=== PATIENT | female | born 1950 | race Caucasian/White ===

== ENCOUNTER → 2018-06-19 11:56 | Outpatient (CLI) | payer MEDICARE, BC, OTHER, SELFPAY ==
--- NOTE | 2018-06-19 | DI.RAD.S_ITS ---
PROCEDURE: XR CHEST 2V INDICATIONS: WHEEZING TECHNIQUE: 2 views of the chest were acquired. COMPARISON: [facility], CHEST 1 VIEW, 03/28/2015, 9:35. [facility], CHEST 1 VIEW, 05/11/2009, 16:20. FINDINGS: Surgical changes and devices: None. Lungs and pleura: Lungs are clear but the lung volumes are large and the appearance is suggestive of underlying COPD. No pleural effusions or pneumothorax. Mediastinum: Mediastinal contours are normal. Heart size is normal. Bones and chest wall: No suspicious bony abnormalities. Soft tissues appear unremarkable. IMPRESSION: Suspect COPD, large lung volumes, no pneumonia or neoplasm is currently found. Dictated by: Rasta Lawrence M.D. on 06/19/2018 at 13:02 Approved by: Rasta Lawrence M.D. on 06/19/2018 at 13:03
== END ==
PROVIDERS: PCP Family Medicine; Visit Provider Family Medicine
DX: R06.2 Wheezing (principal)
CPT/HCPCS: 71046

== ENCOUNTER → 2018-11-06 14:48 | Outpatient (CLI) | payer MEDICARE, BC, OTHER, SELFPAY ==
--- NOTE | 2018-11-10 16:37 | PM.PFT.1 ---
Pulmonary Function Test Referral & Results Date Patient Seen: 11/06/18 Requesting provider: Elizabeth Cartagena Results: The spirometry demonstrates an FVC of 2.52 L which is 91% of predicted. The FEV1 was measured at 1.31 L which is 62% of predicted. The FEV1/FVC ratio was 52 which is 67% of predicted. Following the administration of bronchodilator there was a 16 % improvement in FEV1 and a 60% improvement in FEF 25-75%. Lung volumes show an SVC of 2.37 L which is 90% of predicted. The diffusing capacity was measured at 12.57 which is 62% of predicted. The maximum voluntary ventilation was reduced Interpretation: This study demonstrates mild to moderate obstructive lung disease based on reduction FEV1. There is some evidence of benefit following bronchodilator based on 16 % improvement in FEV1 and 60% improvement in FEF 25-75% There is also mild reduction in diffusing capacity suggesting an element of disease at the capillary alveolar level
== END ==
PROVIDERS: PCP Family Medicine; Visit Provider Family Medicine
DX: R06.2 Wheezing (principal)
CPT/HCPCS: 94060; 94726; 94729

== ENCOUNTER → 2018-11-17 07:32 | Outpatient (CLI) | payer MEDICARE, BC, OTHER, SELFPAY ==
--- NOTE | 2018-11-17 | DI.MRI.S_ITS ---
PROCEDURE: MR LUMBAR SPINE WO CON INDICATIONS: LUMBAR RADICULOPATHY TECHNIQUE: Noncontrast sagittal T1 spin echo and T2 fast echo, sagittal STIR, axial T1 and T2 fast spin echo through the lumbar spine. In cases with scoliosis, additional coronal T2 fast spin echo may be performed. COMPARISON: [facility], MR, L-SPINE WITHOUT CONTRAST, 03/23/2007, 9:49. FINDINGS: Image quality: Excellent. Alignment and Curvature: There is grade 1 anterolisthesis of L4 on L5 and trace retrolisthesis of L2 on L3, L5 on S1 and trace anterolisthesis of L3 on L4. These are of slightly more prominent when compared to prior exam. Bone Marrow: Marrow is of normal overall signal. Moderate endplate changes are present at L5-S1. No acute vertebral body compression fractures. Spinal Cord: Conus medullaris terminates at the L1-L2 level. Visualized cord demonstrates normal signal and size. Paraspinous Soft Tissues: No paravertebral masses. Discs: Severe desiccation is present over 5 and L5-S1, moderate remainder of the lumbar spine. L1-L2: Minimal disc bulge without spinal stenosis. Mild left foraminal narrowing with facet and ligamentum flavum hypertrophy. Interval progression is noted. L2-L3: Mild disc flows with minimal spinal stenosis. Mild to moderate bilateral foraminal narrowing with facet and ligamentum flavum hypertrophy. Interval compression is noted.. L3-L4: Mild disc bulge with severe spinal stenosis and mild canal compression. There is severe right and mild left foraminal narrowing with facet and ligamentum flavum hypertrophy. Interval progression is noted. L4-L5: Mild disc bulge with moderate to severe spinal stenosis. There is severe right and mild left foraminal narrowing with flattening of the nerve root on the right. Facet and ligamentum flavum hypertrophy are present. Interval progression is noted. L5-S1: Mild asymmetric disc bulge with left foraminal component and slight compromise of the left lateral recess.. Severe left and moderate right foraminal narrowing with very minimal appearance of nerve root flattening on the left. Facet hypertrophy is present. Interval progression is noted. IMPRESSION: 1. Multilevel degenerative changes with interval progression compared to 2007. 2. Spinal stenosis is most prominent at L3-4 and L4-5 secondary to disc bulge with contributing effect of facet/ligamentum flavum arthropathy. 3. Multilevel foraminal narrowing most severe at L3-4 through L5-S1 secondary to injury/retrolisthesis as well as facet arthropathy. Dictated by: Monie Baez M.D. on 11/17/2018 at 9:23 Approved by: Monie Baez M.D. on 11/17/2018 at 9:54
--- NOTE | 2018-11-17 | DI.MG.S_ITS ---
BILATERAL DIGITAL SCREENING MAMMOGRAM 3D/2D WITH CAD: 11/17/2018 CLINICAL: Routine screening. Family history of breast cancer. Comparison is made to exams dated: 08/10/2016 mammogram - [facility], 02/10/2015 mammogram, and 01/28/2014 mammogram - [facility]. The tissue of both breasts is heterogeneously dense. This may lower the sensitivity of mammography. Current study was also evaluated with a Computer Aided Detection (CAD) system. No significant masses, calcifications, or other findings are seen in either breast. There has been no significant interval change. IMPRESSION: NEGATIVE There is no mammographic evidence of malignancy. A 1 year screening mammogram is recommended. This exam was interpreted at Station ID: [id number]. NOTE: For mammograms, a report in lay terms will be sent to the patient. Approximately 15% of breast malignancies will not be visualized mammographically. In the management of a palpable breast mass, a negative mammogram must not discourage biopsy of a clinically suspicious lesion. Electronically Signed By: Shay smith/keegan:11/17/2018 13:25:43 letter sent: Normal Exam ACR BI-RADS Category 1: Negative [id number]
== END ==
PROVIDERS: PCP Family Medicine; Visit Provider Family Medicine
DX: Z12.31 Encounter for screening mammogram for malignant neoplasm of breast (principal); Z80.3 Family history of malignant neoplasm of breast; M47.26 Other spondylosis with radiculopathy, lumbar region; M47.27 Other spondylosis with radiculopathy, lumbosacral region; M51.16 Intervertebral disc disorders with radiculopathy, lumbar region; M51.17 Intervertebral disc disorders with radiculopathy, lumbosacral region; M48.061 Spinal stenosis, lumbar region without neurogenic claudication; M48.07 Spinal stenosis, lumbosacral region
CPT/HCPCS: 72148; 77063; 77067

== ENCOUNTER 2019-03-15 13:04 | Outpatient (CLI) | payer MEDICARE, BC, OTHER, SELFPAY ==
[2019-03-15] VITALS (9 sets, daily range): BP systolic 106–145; BP diastolic 47–95; PULSE 66–76; RESP 16; TEMP 36.7; O2SAT 97–99
--- NOTE | 2019-03-15 13:08 | DI.RAD.S_ITS ---
PROCEDURE: PAIN L/S TRANSFORAMINAL INJECT INDICATIONS: RADICULOPATHY FINDINGS: Fluoroscopic spot filming was performed to verify placement of spinal needles at the L3-L4 level(s), as labeled on the films. Appropriate location(s) of the needle tip(s) was confirmed by injection of iodinated contrast. Dictated by: Todd Adler M.D. on 03/15/2019 at 15:36 Approved by: Todd Adler M.D. on 03/15/2019 at 15:36
[2019-03-15] MEDS: MIDAZOLAM 5 MG/5 ML VIAL IV (14:00)
[2019-03-15] MEDS: fentaNYL 100 MCG/2 ML INJ 50 MCG IV (14:00)
[2019-03-15] MEDS: IOPAMIDOL 15 ML VIAL 3 ML INJ (14:06)
[2019-03-15] MEDS: BETAMETHASONE 30 MG/5 ML MDV 6 MG INJ (14:06)
[2019-03-15] MEDS: DEXAMETHASONE 10 MG/ML VIAL 20 MG INJ (14:09)
--- NOTE | 2019-03-15 14:16 | P.PCN_ITS ---
Procedures Date/Time Date of procedure: 03/15/19 Time of procedure: 14:16 General Procedure description: PROVIDER: Paolo Donaldson DO Operative Note PREOP DIAGNOSIS 1. FORAMINAL STENOSIS WITH LE SYMPTOMS, POST OP DIAGNOSIS 1. FORAMINAL STENOSIS WITH LE SYMPTOMS, PROCEDURES 1. FLUOROSCOPICALLY GUIDED CONTRAST CONTROLLED TRANSFORAMINAL EPIDURAL STEROID INJECTION - RIGHT L3/4 TFESI SURGEON: Paolo Donaldson DO INDICATIONS Leida is referred by Dr. Cartagena for treatment of Foraminal Stenosis with right LE Symptoms FINDINGS Foraminal Nerve Root Compression secondary to disc disease and facet hypertrophy DESCRIPTION OF PROCEDURE Following review of allergy and review of potential side effects and complications, including, but not necessarily limited to, infection, allergic reaction, local tissue breakdown, stroke, temporary or permanent nerve injury, paralysis, and possible , the patient indicated that the patient understood and agreed to proceed. An informed consent document was signed by the patient, witnessed by a nurse, and placed in the patient's chart. Additionally, other treatment options including medications, modalities, and physical therapy were reviewed with the patient. After review of previous anaesthesic history and IV conscious sedation the patient was deemed safe to proceed with todays procedure with IV conscious sedation as ASA class II designation. Safety time-out was performed to confirm patient ID, procedure to be performed and site of procedure. IV sedation was accomplished with a combination of 2mg of Versed and 50mcg of Fentanyl was administered by the RN after DO order, titrated to patient comfort during the course of the procedure while the patient remained responsive to all verbal commands In the prone position following sterile prep and drape of the lumbar region, the right L3/4 posterior neuroforamen was identified fluoroscopically. The skin was anesthetized via a 25-gauge 1.5-inch needle with 1% lidocaine solution. At this point, a 25-gauge 3.5-inch spinal needle was atraumatically introduced and advanced under fluoroscopic guidance through the posterior right L3/4 neuroforamen to approximately the anterior aspect of the canal. Depth was confirmed on lateral view. Following negative aspiration, injection of approximately 1.5 cc of Isovue 200 under live fluoroscopy in the AP view confirmed excellent flow along the nerve root, into the epidural space without vascular or intrathecal uptake observed Radiological data, including multiple fluoroscopic views of the lumbosacral spine, reveal a spinal needle at the right L3/4 posterior neuroforamen. S ubsequent views show flow of contrast material flowing superiorly and inferiorly along the nerve root confirming epidural flow. Subsequently, a test dose of 1.5 cc of 1% lidocaine solution was administered and patient was observed for two minutes for signs or symptoms of complications, including abdominal pain, shortness of breath, bilateral upper or lower extremity weakness, nausea and vomiting, prior to steroid injection. At this point, a total of 3cc or 20mg of dexamethasone and 6mg of betamethasone was injected without incident. The patient tolerated the procedure well without signs or symptoms of complications prior to transfer to the recovery area continued monitoring without incident. The patient was then transferred to the recovery area where they were observed for an appropriate time after the injection. The patient reported a VAS score of 7 prior to the procedure and a post-procedure VAS of 0. Total Fluoroscopy Time: 24.2 seconds Total Conscious Sedation Time: 24min POST OP INSTRUCTIONS The patient was provided a Pain Log to continue to record their response to the target-specific procedure prior to follow-up visit with their referring physician. Additionally, specific post-injection care instructions and a contact number to our office were provided if concerns arise regarding possible complications associated with the procedure are suspected. Paolo Donaldson, Complications: none
--- NOTE | 2019-03-15 16:15 | PC.NURSE ---
Post procedure transfer note: Patient tolerated procedure well. Medicated per providers orders. VSS throughout. Mild discomfort during procedure. Able to sit up and transfer to wheelchair with stand by assist. Handoff report given to Iain Middleton RN. Pain level 2/10. Transfer VSS.
== END 2019-03-15 14:52 | disposition home or self-care (01) ==
PROVIDERS: PCP Family Medicine; Visit Provider Physical Medicine & Rehabilitation
DX: M48.061 Spinal stenosis, lumbar region without neurogenic claudication (principal); M51.16 Intervertebral disc disorders with radiculopathy, lumbar region
CPT/HCPCS: 64483; 99152; J0702; J1100; J2250; J3010

== ENCOUNTER → 2019-04-10 13:37 | Outpatient (CLI) | payer MEDICARE, BC, SELFPAY ==
--- NOTE | 2019-04-10 | DI.RAD.S_ITS ---
PROCEDURE: XR HIP W PEL IF DONE BILAT 2V INDICATIONS: Bilateral hip pain TECHNIQUE: AP pelvis with lateral view(s) of the right and left hip(s). COMPARISON: [facility], , PELVIS WITH BILATERAL HIPS, 04/25/2007, 13:47. FINDINGS: Bones: No fractures or dislocations. Pelvic ring appears intact. No suspicious bony lesions. Bilateral vascular stents noted. Mild bilateral hip joint degeneration. Lower lumbar spondylosis. Sacroiliac joints grossly unremarkable although not well seen. This is due to overlying stool and bowel gas. Soft tissues: The visualized bowel gas pattern is normal. No suspicious soft tissue calcifications. Scattered vascular calcifications IMPRESSION: Bilateral mild symmetric hip joint degeneration, no interval change since 04/25/07. Dictated by: Todd Adler M.D. on 04/10/2019 at 16:06 Approved by: Todd Adler M.D. on 04/10/2019 at 16:08
== END ==
PROVIDERS: Family Provider Neurological Surgery; PCP Family Medicine; Visit Provider Family Medicine
DX: M81.0 Age-related osteoporosis without current pathological fracture (principal); Z78.0 Asymptomatic menopausal state; M25.552 Pain in left hip; M25.551 Pain in right hip; M16.0 Bilateral primary osteoarthritis of hip; K92.9 Disease of digestive system, unspecified; Z85.43 Personal history of malignant neoplasm of ovary; Z87.891 Personal history of nicotine dependence; Z82.62 Family history of osteoporosis
CPT/HCPCS: 73521; 77080

== ENCOUNTER 2019-04-19 15:34 | Outpatient (CLI) | payer MEDICARE, BC, SELFPAY ==
[2019-04-19] VITALS (8 sets, daily range): BP systolic 123–146; BP diastolic 82–99; PULSE 80–98; RESP 15–16; TEMP 37; O2SAT 97–98
--- NOTE | 2019-04-19 15:37 | DI.RAD.S_ITS ---
PROCEDURE: PAIN L INTERLAMINAR/CAUDAL INJ INDICATIONS: SPINAL STENOSIS FINDINGS: Fluoroscopic spot filming was performed to verify placement of spinal needles at the L4-L5 level(s), as labeled on the films. Appropriate location(s) of the needle tip(s) was confirmed by injection of iodinated contrast. Dictated by: Todd Adler M.D. on 04/19/2019 at 16:36 Approved by: Todd Adler M.D. on 04/19/2019 at 16:36
[2019-04-19] MEDS: MIDAZOLAM 5 MG/5 ML VIAL IV (16:16)
[2019-04-19] MEDS: fentaNYL 100 MCG/2 ML INJ 50 MCG IV (16:16)
[2019-04-19] MEDS: BUPIVACAINE 0.25% (PF) VIAL 2 ML INJ (16:20)
[2019-04-19] MEDS: IOPAMIDOL 15 ML VIAL 3 ML INJ (16:20)
[2019-04-19] MEDS: BETAMETHASONE 30 MG/5 ML MDV 6 MG INJ (16:21)
[2019-04-19] MEDS: DEXAMETHASONE 10 MG/ML VIAL 20 MG INJ (16:21)
--- NOTE | 2019-04-19 16:23 | PC.NURSE ---
ASSISTING PT OFF TABLE AND TRANSPORTING TO POST PROC AREA IN STABLE CONDITION. PASSING RN CARE OF PT TO BEATA Lombardo RN.
--- NOTE | 2019-04-19 16:28 | P.PCN_ITS ---
Procedures Date/Time Date of procedure: 04/19/19 Time of procedure: 16:28 General Procedure description: PROVIDER: Paolo Donaldson DO Operative Note PREOP DIAGNOSIS 1. HNP WITH RADICULAR FEATURES, 2. MULTILEVEL CENTRAL STENOSIS, POST OP DIAGNOSIS 1. HNP WITH RADICULAR FEATURES, 2. MULTILEVEL CENTRAL STENOSIS PROCEDURES 1. FLUORSCOPICALLY GUIDED CONTRAST CONTROLLED INTERLAMINAR EPIDURAL STEROID INJECTION -L4/5 PHYSICIAN: Paolo Donaldson DO INDICATIONs: Leida is referred by Dr. Cartagena for treatment of Bilateral Foraminal Stenosis R>L LE symptoms. FINDINGS Multilevel Central Spinal Stenosis with Nerve Root Compression DESCRIPTION OF PROCEDURE Fluoroscopically guided, contrast-controlled L4/5 translaminar epidural steroid injection. Following review of allergy and review of potential side effects and complications, including, but not necessarily limited to, infection, allergic reaction, local tissue breakdown, temporary as well as permanent nerve injury, paralysis, stroke and possible , the patient indicated that the patient understood and agreed to proceed. An informed consent document was signed by the patient, witnessed by a nurse, and placed in the patient's chart. Additionally, other treatment options including modalities, medications, and physical therapy were reviewed with the patient. After review of previous anaesthesic history and IV conscious sedation the patient was deemed safe to proceed with todays procedure with IV conscious sedation as ASA class II designation. Safety time-out was performed to confirm patient ID, procedure to be performed and site of procedure. IV sedation was accomplished with a combination of 2mg of Versed and 50mcg of Fentanyl was administered by the RN after DO order, titrated to patient comfort during the course of the procedure while the patient remained responsive to all verbal commands In the prone position, following sterile prep and drape of the lumbar region, the L4/5 translaminar space was identified fluoroscopically. The skin was anes thetized via a 25-gauge, 1.5-inch needle with 1% lidocaine solution. At this point, a 22-gauge short bevel spinal needle was atraumatically introduced and advanced under fluoroscopic guidance into the region of the L4/5 translaminar space. Depth was confirmed on lateral view. Radiological data, including multiple fluoroscopic views of the lumbar spine, reveal a spinal needle at the L4/5 translaminar space. Lateral views then show placement of the needle in the epidural space. Subsequent views show contrast material flowing superiorly and inferiorly in the epidural space. No vascular or intrathecal uptake is observed. At this point, using loss of resistance technique with saline and air, the epidural space was entered. This was confirmed following negative aspiration with injection of approximately 1.5 cc of Isovue 200, showing excellent epidural flow without vascular or intrathecal uptake. At this point, 1cc of 0.25% marcaine solution combined with 3cc or 20mg of dexamethasone and 6mg betamethasone was injected without incident. The patient tolerated the procedure well without signs or symptoms of complications prior to transfer to the recovery area continued monitoring without incident. The patient was then transferred to the recovery area where they were observed for an appropriate period of time after the injection. The patient reported a VAS score of 6 prior to the procedure and a post- procedure VAS of 0. Total Fluoroscopy Time: 11.8 seconds Total Conscious Sedation Time: 24min POST OP INSTRUCTIONS The patient was provided a Pain Log to continue to record their response to the target-specific procedure prior to follow-up visit with their referring physician. Additionally, specific post-injection care instructions and a contact number to our office were provided if concerns arise regarding possible complications associated with the procedure are suspected. Paolo Donaldson, Complications: none
== END 2019-04-19 17:00 | disposition home or self-care (01) ==
LOC: RAD 15:36
PROVIDERS: Family Provider Neurological Surgery; PCP Family Medicine; Referring Provider Dentist Orthodontics and Dentofacial Orthopedics; Visit Provider Physical Medicine & Rehabilitation
DX: M51.16 Intervertebral disc disorders with radiculopathy, lumbar region (principal); M48.061 Spinal stenosis, lumbar region without neurogenic claudication
CPT/HCPCS: 62323; 99152; J0702; J1100; J2250; J3010

== ENCOUNTER → 2019-07-30 10:41 | Outpatient (CLI) | payer MEDICARE, BC, SELFPAY ==
[2019-07-31 10:55] LABS: COVID19 Sendout NOT DETECTED
== END ==
PROVIDERS: Family Provider Neurological Surgery; PCP Family Medicine; Visit Provider Registered Nurse
DX: Z01.818 Encounter for other preprocedural examination (principal)
CPT/HCPCS: 87635

== ENCOUNTER 2019-08-02 08:32 | Outpatient (CLI) | payer MEDICARE, BC, SELFPAY ==
[2019-08-02] VITALS (8 sets, daily range): BP systolic 124–171; BP diastolic 74–96; PULSE 73–87; RESP 12–16; TEMP 37; O2SAT 98–100
--- NOTE | 2019-08-02 08:34 | DI.RAD.S_ITS ---
PROCEDURE: PAIN L/SI FACET INJ/BLK 1STL INDICATIONS: SPONDYLOSIS FINDINGS: Fluoroscopic spot filming was performed to verify placement of spinal needles at the L4-S1 facet joint level(s) on the right, as labeled on the films. Appropriate location(s) of the needle tip(s) was confirmed by injection of iodinated contrast. IMPRESSION: Right L4-L5 and right L5-S1 needle tip localization for facet joint injections. Dictated by: Rasta Lawrence M.D. on 08/02/2019 at 11:26 Approved by: Rasta Lawrence M.D. on 08/02/2019 at 11:27
[2019-08-02] MEDS: fentaNYL 100 MCG/2 ML INJ 50 MCG IV (09:57)
[2019-08-02] MEDS: MIDAZOLAM 5 MG/5 ML VIAL IV (09:57)
[2019-08-02] MEDS: IOPAMIDOL 15 ML VIAL 3 ML INJ (10:02)
[2019-08-02] MEDS: LIDOCAINE 1% 20 ML 10 ML INJ (10:02)
[2019-08-02] MEDS: BETAMETHASONE 30 MG/5 ML MDV 12 MG INJ (10:03)
[2019-08-02] MEDS: BUPIVACAINE 0.5% (PF) VIAL 5 ML INJ (10:03)
--- NOTE | 2019-08-02 10:04 | PC.NURSE ---
ASSISTING PT OFF TABLE AND TRANSPORTING TO POST PROC AREA IN STABLE CONDITION. PASSING RN CARE OF PT OFF TO BRIONNA COBURN.
--- NOTE | 2019-08-02 10:09 | P.PCN_ITS ---
Procedures Date/Time Date of procedure: 08/02/19 Time of procedure: 10:10 General Procedure description: PREOP DIAGNOSIS 1. FACET ARTHROPATHY, 2. AXIAL LBP, 3. MULTILEVEL DDD, POST OP DIAGNOSIS 1. FACET ARTHROPATHY, 2. AXIAL LBP, 3. MULTILEVEL DDD, PROCEDURES 1. FLUORSCOPICALLY GUIDED CONTRAST CONTROLLED FACET JOINT INJECTIONS RIGHT L4/5, L5/S1 SURGEON: Paolo Donaldson, DO INDICATIONS Leida is referred by Dr. Cartagena for treatment of Axial LBP FINDINGS Multilevel Facet Arthropathy with Clinically significant axial LBP DESCRIPTION OF PROCEDURE Fluoroscopically guided, contrast-controlled right L4/5, L5/S1 facet joint injections. Following review of allergy and review of potential side effects and complications, including, but not necessarily limited to, infection, allergic reaction, local tissue breakdown, stroke, temporary or permanent nerve injury, paralysis, and possible , the patient indicated that the patient understood and agreed to proceed. An informed consent document was signed by the patient, witnessed by a nurse, and placed in the patient's chart. Additionally, other treatment options including medications, modalities, and physical therapy were reviewed with the patient. After review of previous anaesthesic history and IV conscious sedation the patient was deemed safe to proceed with todays procedure with IV conscious sedation as ASA class II designation. Safety time-out was performed to confirm patient ID, procedure to be performed and site of procedure. IV sedation was accomplished with a combination of 2mg of Versed and 50mcg of Fentanyl was administered by the RN after DO order, titrated to patient comfort during the course of the procedure while the patient remained responsive to all verbal commands. In the prone position, following sterile prep and drape of the lumbar region, the posterior aspect of the right L4/5, L5/S1 facet joints were identified fluoroscopically. The skin was anesthetized via a 25-gauge 1.5-inch needle with 1% lidocaine solution into the corresponding facet joints. At this point, a 22- gauge 3.5-inch spinal needle was atraumatically introduced and advanced under fluoroscopic guidance into the corresponding facet joints. Following negative aspiration, injections of approximately 0.2-cc of Isovue 200 confirmed interarticular placement without vascular uptake. Radiological data, including multiple fluoroscopic views of the lumbosacral spine, reveal a spinal needle at the right L4/5, L5/S1 facet joints. Subsequent views show flow of contrast material both superiorly and inferiorly within the joint space without vascular or intrathecal uptake. At this point, a total of 0.5 cc including a mixture of 0.25cc Marcaine and 0.25cc betamethasone was injected without complication into each of the corresponding facet joints. The procedure tolerated the procedure well without signs or symptoms of complications prior to transfer to the recovery area continued monitoring without incident. The patient was then transferred to the recovery area where they were observed for an appropriate period of time after the injection. The patient reported a VAS score of 7 prior to the procedure and a post-procedure VAS of 0. Total Fluoroscopy Time: 6 seconds Total Conscious Sedation Time: 24min POST OP INSTRUCTIONS The patient was provided a Pain Log to continue to record their response to the target-specific procedure prior to follow-up visit with their referring physician. Additionally, specific post-injection care instructions and a contact number to our office were provided if concerns arise regarding possible complications associated with the procedure are suspected. Paolo Donaldson, Complications: none
== END 2019-08-02 10:20 | disposition home or self-care (01) ==
LOC: RAD 08:33
PROVIDERS: Family Provider Neurological Surgery; PCP Family Medicine; Referring Provider Physical Medicine & Rehabilitation; Visit Provider Physical Medicine & Rehabilitation
DX: M47.816 Spondylosis without myelopathy or radiculopathy, lumbar region (principal); M47.817 Spondylosis without myelopathy or radiculopathy, lumbosacral region; M54.5 Low back pain; M51.36 Other intervertebral disc degeneration, lumbar region; M51.37 Other intervertebral disc degeneration, lumbosacral region
CPT/HCPCS: 64493; 64494; 99152; J0702; J2250; J3010

== ENCOUNTER → 2019-10-08 08:39 | Outpatient (CLI) | payer MEDICARE, BC, OTHER, SELFPAY ==
[2019-10-09 20:25] LABS: COVID19 Sendout Not Detected (Not Detect)
== END ==
PROVIDERS: Family Provider Neurological Surgery; PCP Family Medicine; Visit Provider Physician Assistant
DX: Z01.812 Encounter for preprocedural laboratory examination (principal)
CPT/HCPCS: 87635

== ENCOUNTER 2019-10-11 10:24 | Outpatient (CLI) | payer MEDICARE, BC, OTHER, SELFPAY ==
[2019-10-11] VITALS (11 sets, daily range): BP systolic 125–170; BP diastolic 8–108; PULSE 67–80; RESP 15–17; TEMP 36.1; O2SAT 99–100
--- NOTE | 2019-10-11 10:26 | DI.RAD.S_ITS ---
PROCEDURE: PAIN L/S MED/LAT N RFA INDICATIONS: SPONDYLOSIS COMPARISON: None. FINDINGS: Fluoroscopic spot filming was performed to verify placement of spinal needles at the L4, L5, S1 level(s), as labeled on the films. Appropriate location(s) of the needle tip(s) was confirmed by injection of iodinated contrast. Dictated by: Todd Adler M.D. on 10/11/2019 at 13:46 Approved by: Todd Adler M.D. on 10/11/2019 at 13:47
--- NOTE | 2019-10-11 11:54 | P.PCN_ITS ---
Date/Time/Diagnoses Date of procedure: 10/11/19 Time of procedure: 11:54 Pre-procedure diagnosis: 1. RECALCITRANT FACET ARTHROPATHY Post-procedure diagnosis: same Procedure Notes Procedure: 1. RIGHT L4 AND L5 MEDIAL BRANCH RADIOFREQUENCY NEUROTOMY AND RIGHT S1 DORSAL RAMUS BRANCH RADIOFREQUENCY NEUROTOMY Indications: Leida is referred by for treatment of facet arthropathy. Physician: Paolo Donaldson Total Fluoroscopy time (seconds): 10 Total sedation minutes: 27 Complications: none Procedure in detail & Post-procedure care: DESCRIPTION OF PROCEDURE Right L4 and L5 medial branch radiofrequency neurotomy and right S1 dorsal ramus branch radiofrequency neurotomy under fluoroscopy with conscious sedation. The patient is well known to this clinic having undergone previous facet injections with good but temporary relief. The patient has experienced appropriate, concordant relief with previous facet and median branch blocks but the patient's pain has been recalcitrant to further conservative measures. Therefore, based upon the patient's relief and persistent symptoms, the patient is considered an appropriate candidate for facet rhizotomy. All of the patient's questions regarding the risks versus benefits of the procedure, including, but not limited to, bleeding, infection, temporary as well as lasting nerve injury, paralysis, stroke, and , as well treatment alternatives were answered to satisfaction. After review of previous anaesthesic history and IV conscious sedation the patient was deemed safe to proceed with today?s procedure with IV conscious sedation as ASA class II designation. Safety time-out was performed to confirm patient ID, procedure to be performed and site of procedure. IV sedation was accomplished with a combination of 4mg of Versed and 50mcg of Fentanyl was administered by the RN after DO order, titrated to patient comfort during the course of the procedure while the patient remained responsive to all verbal commands. After obtaining informed consent, denial of pertinent drug allergies, as well as being made aware of the potential risks of bleeding, infection, spinal cord trauma, paralysis, temporary and permanent nerve damage, seizure, stroke, and possible , the patient was brought to the fluoroscopy suite and positioned prone on the fluoroscopy table. The lumbar region was prepped with Betadine and covered with a fenestrated drape in the usual sterile fashion. Appropriate monitors applied including pulse oximeter, pulse, and blood pressure for regular monitoring throughout the procedure. After local infiltration using 1% lidocaine, under fluoroscopic guidance, a 10- cm RF insulated needle with a 10-mm active tip was positioned parallel to the junction of the right sacral ala and the superior articulating process where the S1 dorsal ramus resides. Needle placement was confirmed with sensory stimulation at 50 Hz, with motor stimulation of .5v on the right which produced local stimulation without radicular component. The stimulation was then increased to 1.5v with, once again, only local multifidus stimulation without radicular component. This was then followed by two discreet lesions performed at 80 degrees Celsius for 90 seconds each. The needle was then removed and the identical procedure was performed along the length of the right L5 medial branch with motor stimulation at .7v on the right. The identical procedure was once again performed along the length of the right L4 medial branch with motor stimulation of .5v on the right. The patient tolerated the procedure well without signs or symptoms of complications prior to transfer to the recovery area continued monitoring without incident. The patient was then transferred to the recovery area where they were observed for an appropriate period of time after the injection. The patient was then transferred to the recovery area where they were observed for an appropriate period of time after the injection. The patient reported a VAS score of 9 prior to the procedure and a post- procedure VAS of 0. POST OP INSTRUCTIONS The patient was provided a Pain Log to continue to record the patient's response to the target-specific procedure prior to the patient's follow-up visit with the referring physician. Additionally, specific post-injection care instructions and a contact number to our office were provided if concerns arise regarding possible complications associated with the procedure are suspected.
--- NOTE | 2019-10-11 12:09 | PC.NURSE ---
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 Denies pain. VSS. TOlerated procedure well. Fent and Versed given by Leida Cárdenas. All othe rmeds by Dr. Donaldson. Green pain log and post instructions given to patient. A&Ox3. Tolerating coffee and cookies
--- NOTE | 2019-10-11 15:41 | PC.NURSE ---
Pt tolerated procedure well. VSS upon transfer to post procedure room to BRIONNA Vizcarra. All sedaiton meds given by Leida Worrell. All other documented meds adminsitered by Dr Donaldson.
== END 2019-10-11 12:07 | disposition home or self-care (01) ==
LOC: RAD 10:25
PROVIDERS: Family Provider Neurological Surgery; PCP Family Medicine; Referring Provider Physical Medicine & Rehabilitation; Visit Provider Physical Medicine & Rehabilitation
DX: M47.816 Spondylosis without myelopathy or radiculopathy, lumbar region (principal); M47.817 Spondylosis without myelopathy or radiculopathy, lumbosacral region
CPT/HCPCS: 64635; 64636; 99152; 99153; J2250; J3010

== ENCOUNTER → 2019-11-14 14:38 | Outpatient (CLI) | payer MEDICARE, BC, OTHER, SELFPAY ==
--- NOTE | 2019-11-14 14:40 | DI.RAD.S_ITS ---
PROCEDURE: XR LUMBAR SPINE MIN 4V INDICATIONS: LOW BACK PAIN TECHNIQUE: 5 views of the lumbar spine were acquired. COMPARISON: [facility], , XR LUMBAR SPINE 2-3V, 07/22/2017, 12:08. FINDINGS: Bones: 5 nonrib-bearing vertebrae are present. There is mild leftward curvature of lower lumbar spine centered at L3-4 level. Grade 1 anterolisthesis of L4 on L5 is seen. Degenerative endplate changes are noted at L3-4 through L5-S1 levels more prominent at L4-5 level.. No vertebral body compression fractures. No suspicious bony lesions. Soft tissues: Overlying bowel gas pattern is normal. No suspicious soft tissue calcifications. Aortal bi-iliac stents are seen. Oblique images: No pars defects. Left-sided bony foraminal stenosis at L4-5 level is seen. IMPRESSION: Grade 1 anterolisthesis of L4 on L5. No definite pars defect. Degenerative disc disease in mid to lower lumbar spine more prominent at L4-5 level with suggestion of left-sided bony foraminal stenosis. No acute compression fracture. Dictated by: Sridhar Garcia M.D. on 11/14/2019 at 15:09 Approved by: Sridhar Garcia M.D. on 11/14/2019 at 15:10
== END ==
PROVIDERS: Family Provider Neurological Surgery; PCP Family Medicine; Referring Provider Physical Medicine & Rehabilitation; Visit Provider Physical Medicine & Rehabilitation
DX: M51.36 Other intervertebral disc degeneration, lumbar region (principal); M43.16 Spondylolisthesis, lumbar region; M51.27 Other intervertebral disc displacement, lumbosacral region; M70.61 Trochanteric bursitis, right hip
CPT/HCPCS: 20611; 72110; 99213; J0702

== ENCOUNTER → 2019-12-01 09:40 | Outpatient (CLI) | payer MEDICARE, BC, OTHER, SELFPAY ==
--- NOTE | 2019-12-01 | DI.MG.S_ITS ---
BILATERAL DIGITAL SCREENING MAMMOGRAM 3D/2D WITH CAD: 12/01/2019 CLINICAL: Routine screening. Family history of breast cancer. Comparison is made to exams dated: 11/17/2018 mammogram, 08/10/2016 mammogram - [facility], and 02/10/2015 mammogram - [facility]. The tissue of both breasts is heterogeneously dense. This may lower the sensitivity of mammography. Current study was also evaluated with a Computer Aided Detection (CAD) system. No significant masses, calcifications, or other findings are seen in either breast. There has been no significant interval change. IMPRESSION: NEGATIVE There is no mammographic evidence of malignancy. A 1 year screening mammogram is recommended. This exam was interpreted at Station ID: [id number]. NOTE: For mammograms, a report in lay terms will be sent to the patient. Approximately 15% of breast malignancies will not be visualized mammographically. In the management of a palpable breast mass, a negative mammogram must not discourage biopsy of a clinically suspicious lesion. Electronically Signed By: Abdias maya/keegan:12/05/2019 11:25:10 letter sent: Normal Exam ACR BI-RADS Category 1: Negative [id number]
== END ==
PROVIDERS: Family Provider Neurological Surgery; PCP Family Medicine; Referring Provider Family Medicine; Visit Provider Family Medicine
DX: Z12.31 Encounter for screening mammogram for malignant neoplasm of breast (principal); Z80.3 Family history of malignant neoplasm of breast
CPT/HCPCS: 77063; 77067

== ENCOUNTER → 2020-05-08 09:40 | Outpatient (CLI) | payer MEDICARE, BC, OTHER, SELFPAY ==
[2020-05-08 11:04] LABS: COVID19 -Nasal RAPID Negative (Negative)
== END ==
PROVIDERS: Family Provider Neurological Surgery; PCP Family Medicine; Visit Provider Surgery
DX: Z20.822 Contact with and (suspected) exposure to COVID-19 (principal)
CPT/HCPCS: 87635; C9803

== ENCOUNTER 2020-05-09 07:22 | Day surgery (SDC) | payer MEDICARE, BC, OTHER, SELFPAY ==
[2020-05-09] VITALS (7 sets, daily range): BP systolic 113–137; BP diastolic 64–86; PULSE 81–95; RESP 14–20; TEMP 36.7–37; O2SAT 92–100; BMI 46.6
--- NOTE | 2020-05-09 | PATH_ITS ---
[facility] Accession Number: [id number] . 01 Material submitted: . PART A: duodenum - DUODENUM PART B: stomach - STOMACH PART C: esophagus - ESOPHAGUS PART D: colon - POLYP AT 35CM . 02 Diagnosis: A. Duodenum, Biopsy: Superficial fragments of small bowel mucosa with no significant histomorphologic abnormality. There is no evidence of active inflammation, features of sprue, regions of dysplasia or malignancy. . B. Stomach, Biopsy: Portions of antral and body-type mucosa with mild chronic inflammation. Negative for Helicobacter organisms by immunohistochemistry. Negative for intestinal metaplasia. Negative for dysplasia and malignancy. . C. Esophagus, Biopsy: Portions of squamocolumnar junctional mucosa with a small focus of specialized intestinal metaplasia, consistent with Juarez's esophagus. Negative for dysplasia or malignancy. . D. Polyp at 35 cm: Tubular adenoma. MRV 05/15/2020 1617 Local . 02 Electronically signed: . Amy Jeffers MD, Pathologist NPI- [id number] . 01 Gross description: . Part A: DUODENUM: Received in formalin is 1 fragment(s) of spear, soft tissue measuring 0.2 x 0.1 x 0.1 cm submitted entirely in 1 cassette(s) Part B: STOMACH: Received in formalin are 3 fragment(s) of spear, soft tissue measuring 0.2 x 0.2 x 0.2 cm to 0.3 x 0.2 x 0.2 cm submitted entirely in 1 cassette(s) Part C: ESOPHAGUS: Received in formalin are 2 fragment(s) of spear, soft tissue measuring 0.1 x 0.1 x 0.1 cm to 0.3 x 0.2 x 0.2 cm submitted entirely in 1 cassette(s) Part D: POLYP AT 35CM: Received in formalin is 1 fragment(s) of spear, soft tissue measuring 0.6 x 0.5 x 0.4 cm submitted entirely in 1 cassette(s) /BHARGAV 05/13/2020 2018 [facility] . 02 Microscopic: . B. An immunohistochemical stain was performed to evaluate for Helicobacter organisms and is negative. The control stain showed appropriate reactivity. . * This test was developed and its performance characteristics determined by [facility]. It has not been cleared or approved by the U.S. Food and Drug Administration. The FDA has determined that such clearance or approval is not necessary. This test is used for clinical purposes. It should not be regarded as investigational or for research. . 02 Pathologist provided ICD-10: R19.5, R13.10 . 02 CPT . 941461, 603867, 368362, 193846, [id number], 809870 Performed at: 01 [facility] [address] [place] [address], [place], [place] [id number] MD Wilder De La Cruz MD Phone: [phone] Performed at: 02 [facility] [place] [address], [place] [id number] MD Krystina Calvo MD Phone: [phone]
--- NOTE | 2020-05-09 08:20 | PM.HP.1 ---
History of Present Illness History of Present Illness Date Patient Seen: 05/09/20 Time Patient Seen: 08:20 Chief complaint: DX COLONOSCOPY/EGD Narrative: This is a 69 yo woman with history of IN and cardiac stents in 2015, atrial fib on Eliquis, arthritis, asthma, HTN, who comes in to discuss her positive FIT test. She c/o worsening SOB, weight loss, and fatigue. She c/o some palpitations and intermittent chest burning. She has lost 10 lbs over the past 2 years unintentionally. Her BMI is 21. She c/o reflux, dysphagia, globus sensation, change in bowel habits, and nausea. She is to take Zantac, but stopped it when there was an FDA recall earlier this year. She did not replace it with any other medication for stomach acid/reflux. She recently had a fecal occult stool test which was positive. She is here to discuss having a colonoscopy. 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 She stops her apixaban 2 days ago. ROS: Positive for weight loss, headache, voice change, cough, decreased exercise tolerance, shortness of breath, wheezing, previous heart attack, palpitations, change in bowel habits, difficulty swallowing, reflux symptoms, nausea, joint pain, muscle aches, weakness. Thirteen system review is otherwise negative other than as mentioned below and in HPI. PE: GENERAL: Well groomed and cooperative. Appears stated age. Answers questions promptly and appropriately. Vital signs noted. HENT: Normocephalic, atraumatic. Hearing intact. EYES: Conjunctiva pink, sclera white, no periorbital swelling. CARDIOVASCULAR: Regular rate. No pedal edema. RESPIRATORY: Non-tachypneic, breathing comfortably on room air. GASTROINTESTINAL: Abdomen soft and non-distended GENITALURINARY: No flank tenderness. MUSCULOSKELETAL: Equal tone and mass bilaterally. SKIN: Warm, dry, soft, appropriate color for ethnicity. No other lesions, rashes, or wounds. NEURO: Alert and Oriented X 3. No gross sensory deficits, or cognitive issues. PSYCH: Appropriate affect and mood. Patient History Medical History Afib Facet arthropathy, lumbar Foraminal stenosis of lumbar region Greater trochanteric bursitis of right hip Herniated nucleus pulposus, L5-S1 Herniated nucleus pulposus, lumbar History of IN (myocardial infarction) Lumbar radiculopathy Lumbosacral spondylosis with radiculopathy Spondylolisthesis at L4-L5 level Surgical History H/O: hysterectomy S/P appendectomy Family & Social History Family History Father Cancer Mother Eosinophilic pneumonia Social History: household members spouse lives independently Yes Tobacco & Substance use: Smoking Status Former smoker alcohol intake current alcohol intake frequency holiday/special occasion Substance Use Type does not use Meds Home Medications and Allergies Home Medications Medication Instructions Recorded Confirmed Type apixaban 5 mg tablet 5 mg PO BID 01/29/19 03/13/20 History atorvastatin 80 mg tablet 80 mg PO DAILY 01/29/19 03/13/20 History calcium and vitamin d 600 mg PO BID 01/29/19 03/13/20 History fluticasone 100 mcg-salmeterol 50 1 puff INHALATION BID 01/29/19 03/13/20 History mcg/dose blistr powdr for inhalation folic acid PO DAILY 01/29/19 03/13/20 History lisinopril 2.5 mg tablet 2.5 mg PO DAILY 01/29/19 03/13/20 History mecobalamin (vitamin B12) 1,000 1,000 mcg SL DAILY 01/29/19 03/13/20 History mcg disintegrating tablet,sublingual lidocaine 5 % topical patch 1 patch TOP DAILY #30 each MDD 12 05/29/19 03/13/20 Rx hours in a 24 hour period albuterol sulfate 90 mcg/actuation 2 inhalation INHALATION Q6H PRN 08/22/19 03/13/20 History breath activated powder inhaler nitroglycerin 0.4 mg sublingual 0.4 mg SL Q5M PRN 08/22/19 03/13/20 History tablet sotalol 80 mg tablet 80 mg PO BID 03/13/20 03/13/20 History Allergies Allergy/AdvReac Type Severity Reaction Status Date / Time No Known Drug Allergies Allergy Verified 03/13/20 13:41 Exam Vital Signs (past 8 hours): - 05/09/20 07:53 Temperature 98.6 F Pulse Rate 95 H Respiratory Rate 14 Blood Pressure 137/86 Pulse Oximetry 100 Oxygen Delivery Method Room Air Oxygen Flow Rate 0 Assessment & Plan Assessment and plan (1) Dysphagia: Qualifiers: Dysphagia type: unspecified Qualified Code(s): R13.10 - Dysphagia, unspecified Status: Acute (2) Nausea: Status: Acute (3) Globus sensation: Status: Acute (4) Weight loss, non-intentional: Status: Acute (5) GERD (gastroesophageal reflux disease): Qualifiers: Esophagitis presence: esophagitis presence not specified Qualified Code(s): K21.9 - Gastro-esophageal reflux disease without esophagitis Status: Acute (6) Anticoagulated by anticoagulation treatment: Status: Acute (7) Heme positive stool: Status: Acute Assessment & Plan narrative: Risks and benefits of diagnostic EGD and colonoscopy and possible biopsy, possible polypectomy were discussed with the patient including risk of bleeding, perforation, need for additional procedures, risks of anesthesia. The patient desires to proceed with the EGD and colonoscopy procedure. COVID-19 COVID-19 status: Negative Result date/Date tested (Pos, Neg/Pending): 05/08/20 Time Spent With Patient Time with patient: 15-24 minutes Quality VTE Deep Vein Thrombosis/Pulmonary Embolism Present on Admission: No
[2020-05-09] MEDS: SODIUM CHLORIDE 0.9% 1,000 ML 200 ML IV (08:21)
--- NOTE | 2020-05-09 08:49 | P.OP.ENDO_ITS ---
Operative Date/Time/Diagnoses Date of procedure: 05/09/20 Time of procedure: 08:49 Pre-op diagnosis: Positive fit test, dysphagia, change in bowel Post-op diagnosis: other (Gastritis, Hill grade 3-4 hiatal hernia, broken Z- line, with reflux esophagitis) Procedure & Clinicians Study performed: Esophagogastroduodenoscopy Procedural sedation performed by the endoscopist Biopsies of duodenum, stomach, distal esophagus Colonoscopy Biopsy of polyp at 35 cm in the colon Same procedure as scheduled: Yes Indications: Positive fit test, dysphagia, change in bowel Surgeon: Nadiya Freeman Procedure Notes SCOAP/Timeout: Performed Procedure in detail: The patient was brought to the room and placed in left lateral decubitus position with all bony prominences padded. A bite block was positioned in the patient's mouth to protect the lips, teeth, and tongue for the procedure. A time-out was performed and then the patient was given procedural sedation starting with 4 mg of Versed and 100 mcg of fentanyl. An additional 4 mg of Versed were given during the EGD portion of the procedure. Vitals were monitored throughout the procedure and remained stable. Once adequately sedated, the procedure was begun. The lubricated gastroscope was passed through the bite block and across the tongue and into the esophagus without incident. A tubular view of the esophagus was maintained as the scope was advanced through the esophagus and into the stomach. The scope was advanced through the stomach and to the pylorus. The scope was gently popped through the pylorus and into the duodenal bulb. The scope was flexed and advanced into the second and third portions of the duodenum. The duodenum and duodenal bulb revealed some shallow ulcers, without active bleeding or visible vessels. Biopsies were taken. The scope was withdrawn into the stomach. The stomach revealed some endoscopic gastritis, and shallow ulcers without active bleeding or visible vessels. Biopsies were taken. The scope was retroflexed and the gastric cardia was examined. The hiatus was widened, consistent with a Hill grade 3-4 hiatal hernia. No ulcerations were seen. The scope was then straightened, and withdrawn into the esophagus. The Z-line was broken, with some hypercellular mucosa, and tongues of salmon-colored mucosa coming up into the esophagus, consistent with reflux esophagitis, and small Juarez's esophagus. Biopsies were taken. Ongoing bleeding was seen from 1 of the biopsy sites, and it was cauterized with the tip of the 10 mm snare, with good hemostasis, and no evidence of immediate complication, injury to the esophagus, or perforation. The esophagus appeared otherwise normal. The scope was then withdrawn through the esophagus with a tubular view. The scope was then withdrawn from the patient the procedure in correction was turned to the colonoscopy portion of the procedure. An additional 2 mg of Versed were given, and an additional 50 micro g of fentanyl were given at the beginning of the colonoscopy procedure. Aectal exam was performed revealing no abnormalities. The colonoscope was then introduced to the rectum and advanced to the cecum in the usual fashion. The cecum was identified by the appendiceal orifice, the mucosal tri-fold, and the ileocecal valve. The scope was then retracted while rotating side to side and examining each mucosal fold. The colon quite tortuous, but no significant diverticulosis or other abnormalities were seen. A 1 cm polyp was found at 35 cm in the colon, and removed with snare. At the conclusion of the procedure retroflexion was performed and small grade 2-3 internal hemorrhoids without stigmata of bleeding were seen. The scope was then withdrawn from the rectum the procedure was concluded. The patient tolerated the procedure well and was transferred to the PACU in stable condition. Scope withdrawal time: 7 Sedation minutes: 36 Findings: Juarez's esophagus, gastritis, hiatal hernia, internal hemorrhoids and polyp Specimen(s): other (Biopsy of duodenum, stomach, distal esophagus. Benign- appearing polyp from 35 cm in the colon.) Complications: none Post-procedure Recommendations: Colonscopy in 10 years and Other recommendation (Consider starting a PPI or H2 jaime. Patient is to discuss this with her primary care doctor since she is on multiple medications. Further recommendations forthcoming depending on biopsy results.) Follow up: as needed Disposition: PACU
[2020-05-09] MEDS: LIDOCAINE 4% SOLN 50 ML 20 ML TOP (09:14)
[2020-05-09] MEDS: MIDAZOLAM 5 MG/5 ML VIAL IV (09:15)
[2020-05-09] MEDS: fentaNYL 250 MCG/5 ML INJ IV (09:15)
== END 2020-05-09 10:17 | disposition home or self-care (01) ==
PROVIDERS: Family Provider Neurological Surgery; PCP Family Medicine; Referring Provider Family Medicine; Visit Provider Surgery
PROC: 0DJ08ZZ Inspection of Upper Intestinal Tract, Via Natural or Artificial Opening Endoscopic (ICD-10-PCS; CPT 43235; principal; 2020-05-09 08:30)
PROC: 0DJD8ZZ Inspection of Lower Intestinal Tract, Via Natural or Artificial Opening Endoscopic (ICD-10-PCS; CPT 45378; 2020-05-09 08:30)
DX: R19.5 Other fecal abnormalities (principal); R19.4 Change in bowel habit; R13.10 Dysphagia, unspecified; I48.91 Unspecified atrial fibrillation; Z79.01 Long term (current) use of anticoagulants; R63.4 Abnormal weight loss; J45.909 Unspecified asthma, uncomplicated; I10 Essential (primary) hypertension; K44.9 Diaphragmatic hernia without obstruction or gangrene; K29.50 Unspecified chronic gastritis without bleeding; K64.1 Second degree hemorrhoids; D12.6 Benign neoplasm of colon, unspecified
CPT/HCPCS: 45385; 43239; 99152; 99153; J2250; J3010

== ENCOUNTER → 2020-06-30 15:36 | Outpatient (CLI) | payer MEDICARE, BC, OTHER, SELFPAY ==
[2020-06-30 16:42] LABS: COVID19 -Nasal RAPID Negative (Negative)
== END ==
PROVIDERS: Family Provider Neurological Surgery; PCP Family Medicine; Visit Provider Physical Medicine & Rehabilitation
DX: Z20.822 Contact with and (suspected) exposure to COVID-19 (principal)
CPT/HCPCS: 87635; C9803

== ENCOUNTER 2020-07-01 09:59 | Outpatient (CLI) | payer MEDICARE, OTHER, SELFPAY ==
[2020-07-01] VITALS (9 sets, daily range): BP systolic 103–135; BP diastolic 63–76; PULSE 56–61; RESP 15–56; O2SAT 95–100
--- NOTE | 2020-07-01 10:05 | DI.RAD.S_ITS ---
PROCEDURE: PAIN L/S TRANSFORAMINAL INJECT INDICATIONS: SPONDYLOSIS COMPARISON: [facility], , PAIN L/S TRANSFORAMINAL INJECT, 03/15/2019, 14:04. FINDINGS: Fluoroscopic spot filming was performed to verify placement of a spinal needle at the L4-L5 level, as labeled on the films. Appropriate location of the needle tip was confirmed by injection of iodinated contrast. IMPRESSION: Intraprocedural examination within normal limits. Dictated by: Naresh Foote M.D. on 07/01/2020 at 10:51 Approved by: Naresh Foote M.D. on 07/01/2020 at 10:51
[2020-07-01] MEDS: fentaNYL 100 MCG/2 ML INJ 50 MCG IV (10:56)
[2020-07-01] MEDS: BUPIVACAINE 0.25% (PF) VIAL 2 ML INJ (11:02)
[2020-07-01] MEDS: MIDAZOLAM 5 MG/5 ML VIAL IV (11:02)
[2020-07-01] MEDS: BETAMETHASONE 30 MG/5 ML MDV 6 MG INJ (11:02)
[2020-07-01] MEDS: IOPAMIDOL 15 ML VIAL 3 ML INJ (11:03)
[2020-07-01] MEDS: DEXAMETHASONE 10 MG/ML VIAL 20 MG INJ (11:03)
--- NOTE | 2020-07-01 11:14 | P.PCN_ITS ---
Date/Time/Diagnoses Date of procedure: 07/01/20 Time of procedure: 11:15 Pre-procedure diagnosis: 1. FORAMINAL STENOSIS WITH LE SYMPTOMS Post-procedure diagnosis: same Procedure Notes Procedure: 1. FLUOROSCOPICALLY GUIDED CONTRAST CONTROLLED TRANSFORAMINAL EPIDURAL STEROID INJECTION - RIGHT L4/5 TFESI Indications: Leida is referred by Dr. Cartagena for treatment of Foraminal Stenosis with Right LE Symptoms Physician: Paolo Donaldson Total Fluoroscopy time (seconds): 14 Total sedation minutes: 11 Complications: none Procedure in detail & Post-procedure care: FINDINGS Foraminal Nerve Root Compression secondary to disc disease and facet hypertrophy DESCRIPTION OF PROCEDURE Following review of allergy and review of potential side effects and complications, including, but not necessarily limited to, infection, allergic reaction, local tissue breakdown, stroke, temporary or permanent nerve injury, paralysis, and possible , the patient indicated that the patient understood and agreed to proceed. An informed consent document was signed by the patient, witnessed by a nurse, and placed in the patient's chart. Additionally, other treatment options including medications, modalities, and physical therapy were reviewed with the patient. After review of previous anaesthesic history and IV conscious sedation the patient was deemed safe to proceed with today?s procedure with IV conscious sedation as ASA class II designation. Safety time-out was performed to confirm patient ID, procedure to be performed and site of procedure. IV sedation was accomplished with a combination of 3mg of Versed and 50mcg of Fentanyl was administered by the RN after DO order, titrated to patient comfort during the course of the procedure while the patient remained responsive to all verbal commands In the prone position following sterile prep and drape of the lumbar region, the right L4/5 posterior neuroforamen was identified fluoroscopically. The skin was anesthetized via a 25-gauge 1.5-inch needle with 1% lidocaine solution. At this point, a 25-gauge 3.5-inch spinal needle was atraumatically introduced and advanced under fluoroscopic guidance through the posterior right L4/5 neuroforamen to approximately the anterior aspect of the canal. Depth was confirmed on lateral view. Following negative aspiration, injection of approximately 1.5cc of Isovue 200 under live fluoroscopy in the AP view confirmed excellent flow along the nerve root, into the epidural space without vascular or intrathecal uptake observed Radiological data, including multiple fluoroscopic views of the lumbosacral spine, reveal a spinal needle at the right L4/5 posterior neuroforamen. Subsequent views show flow of contrast material flowing superiorly and inferiorly along the nerve root confirming epidural flow. Subsequently, a test dose of 1.5 cc of 1% lidocaine solution was administered and patient was observed for two minutes for signs or symptoms of complications, including abdominal pain, shortness of breath, bilateral upper or lower extremity weakness, nausea and vomiting, prior to steroid injection. At this point, a total of 3cc or 20mg of dexamethasone and 6mg of betamethasone was injected without incident. The procedure tolerated the procedure well without signs or symptoms of complications prior to transfer to the recovery area continued monitoring without incident. The patient was then transferred to the recovery area where they were observed for an appropriate time after the injection. The patient reported a VAS score of 7 prior to the procedure and a post- procedure VAS of 0. POST OP INSTRUCTIONS The patient was provided a Pain Log to continue to record their response to the target-specific procedure prior to follow-up visit with their referring physician. Additionally, specific post-injection care instructions and a contact number to our office were provided if concerns arise regarding possible complications associated with the procedure are suspected.
== END 2020-07-01 10:32 | disposition home or self-care (01) ==
LOC: RAD 10:05
PROVIDERS: Family Provider Neurological Surgery; PCP Family Medicine; Referring Provider Physical Medicine & Rehabilitation; Visit Provider Physical Medicine & Rehabilitation
DX: M48.061 Spinal stenosis, lumbar region without neurogenic claudication (principal); M51.16 Intervertebral disc disorders with radiculopathy, lumbar region
CPT/HCPCS: 64483; 99152; J0702; J1100; J2250; J3010

== ENCOUNTER → 2020-08-02 14:02 | Outpatient (CLI) | payer MEDICARE, OTHER, SELFPAY ==
--- NOTE | 2020-08-02 14:03 | DI.MRI.S_ITS ---
PROCEDURE: MR LUMBAR SPINE WO CON INDICATIONS: Post Laminectomy Syndrome TECHNIQUE: Noncontrast sagittal T1 spin echo and T2 fast echo, sagittal STIR, axial T1 and T2 fast spin echo through the lumbar spine. In cases with scoliosis, additional coronal T2 fast spin echo may be performed. COMPARISON: [facility], CR, XR ABD AP 1VW, 03/11/2015, 12:25. [facility], CR, XR LUMBAR SPINE 2-3V, 07/22/2017, 12:08. [facility], MR, MR LUMBAR SPINE WO CON, 11/17/2018, 8:27. FINDINGS: Image quality: Excellent. Alignment and Curvature: 5 lumbar type vertebral bodies are present by plain film. Rudimentary ribs at T12 are present. Mild grade 1 anterolisthesis of L3 on L4 and L4 on L5. Bone Marrow: Marrow is of normal overall signal. No acute vertebral body compression fractures. Moderate reactive signal within the adjacent to the L5-S1 intervertebral disc. Mild reactive signal within the endplates adjacent to the L2-L3, L3-L4, and L4-L5 intervertebral discs. Spinal Cord: Conus medullaris terminates at the upper L2 level. Visualized cord demonstrates normal signal and size. Paraspinous Soft Tissues: No paravertebral masses. T12-L1: Mild disc desiccation. Mild diffuse disc bulge. Minimal canal stenosis. Mild bilateral foraminal stenosis. No significant change. L1-L2: Mild disc height loss and desiccation. Mild diffuse disc bulge. Mild canal stenosis. Mild bilateral foraminal stenosis. No significant change. L2-L3: Mild disc height loss and desiccation. Mild diffuse disc bulge with small superimposed left far lateral broad-based protrusion. Mild facet and ligamentum flavum hypertrophy. Mild canal stenosis. Moderate left and mild right foraminal stenosis. No significant change. L3-L4: Moderate disc height loss and desiccation. Mild diffuse disc bulge with superimposed broad-based right posterolateral and far lateral protrusion. Mild facet and ligamentum flavum hypertrophy. Mild epidural lipomatosis. Moderate canal stenosis. Severe right and mild left foraminal stenosis. Right L3 nerve root compression. No significant change. L4-L5: Moderate disc height loss and desiccation. Mild diffuse disc bulge with superimposed broad-based right far lateral protrusion. Moderate facet hypertrophy bilaterally. Mild canal stenosis. Severe right and moderate left foraminal stenosis mild canal stenosis. Severe right and mild left foraminal stenosis. Right L4 nerve root compression. No significant change. L5-S1: Severe disc height loss and desiccation. Moderate diffuse disc bulge with superimposed broad-based left posterolateral protrusion. Mild bilateral facet hypertrophy. Mild canal stenosis. Moderate to severe left and mild right foraminal stenosis. Mild left L5 nerve root compression. Mild posterior deviation of the left S1 nerve root within the lateral recess. No significant change. IMPRESSION: 1. Multilevel degenerative disc and facet disease, as well as ligamentum flavum hypertrophy and epidural lipomatosis. 2. Multilevel canal stenoses, worst at L3-L4, where there is moderate canal stenosis. 3. Multilevel foraminal stenoses, worst at L3-L4, L4-L5, and L5-S1, where there is intraforaminal nerve root compression as described above. 4. Mild posterior deviation of the left S1 nerve root at the L5-S1 disc space level as described above. 5. Recommend correlation with clinical symptoms to ascertain relevance of these findings. Dictated by: Rich Durand M.D. on 08/04/2020 at 9:11 Approved by: Rich Durand M.D. on 08/04/2020 at 9:17
== END ==
PROVIDERS: Family Provider Neurological Surgery; PCP Family Medicine; Referring Provider Physical Medicine & Rehabilitation; Visit Provider Physical Medicine & Rehabilitation
DX: M96.1 Postlaminectomy syndrome, not elsewhere classified (principal); M51.16 Intervertebral disc disorders with radiculopathy, lumbar region; M51.17 Intervertebral disc disorders with radiculopathy, lumbosacral region; M47.26 Other spondylosis with radiculopathy, lumbar region; M47.27 Other spondylosis with radiculopathy, lumbosacral region; M48.061 Spinal stenosis, lumbar region without neurogenic claudication; M48.07 Spinal stenosis, lumbosacral region
CPT/HCPCS: 72148

== ENCOUNTER 2020-11-16 08:31 | Emergency (ER) | payer MEDICARE, OTHER, SELFPAY ==
[2020-11-16] VITALS (31 sets, daily range): BP systolic 112–190; BP diastolic 64–97; PULSE 87–130; RESP 14–48; O2SAT 89–99; BMI 20.7
--- NOTE | 2020-11-16 08:37 | DI.RAD.S_ITS ---
PROCEDURE: XR CHEST 1V INDICATIONS: Short of breath TECHNIQUE: One view of the chest was acquired. COMPARISON: [facility], , CHEST 1 VIEW, 03/28/2015, 9:35. [facility], , XR CHEST 2V, 06/19/2018, 12:20. FINDINGS: Surgical changes and devices: None. Lungs and pleura: Lungs are clear, yet hyperexpanded. No pleural effusions or pneumothorax. Mediastinum: Mediastinal contours appear normal. Heart size is normal. Atherosclerotic calcification of the aortic arch is noted. Bones and chest wall: No suspicious bony lesions. Overlying soft tissues appear unremarkable. IMPRESSION: Hyperexpanded lungs, without an acute cardiopulmonary process identified. Dictated by: Naresh Foote M.D. on 11/16/2020 at 8:32 Approved by: Naresh Foote M.D. on 11/16/2020 at 8:32
--- NOTE | 2020-11-16 08:41 | ED_ITS ---
HPI - SOB/Dyspnea <Deanna Poon DO - Last Filed: 11/17/20 07:07> General Chief Complaint: Shortness of Breath/Dyspnea Stated Complaint: Short of Breath Time Seen by Provider: 11/16/20 08:37 History of Present Illness HPI Narrative: Patient is a 70-year-old female history of asthma, atrial fibrillation on Eliquis presenting after ablation 2 days ago with increasing shortness of breath. He states he was doing well after her ablation however yesterday she started to notice some difficulty breathing and it got significantly worse last night feels like she has a mucous plug coughing up some pink tinged sputum. She is currently in sinus rhythm she denies any fever. She is having some right-sided pinpoint tenderness which she said started 3 days ago prior to her ablation when she reached across the kitchen counter. Since then she has had pain in 1 particular spot she says that it is costochondritis she has had before but it is painful. It has not changed since then. She feels like this is her asthma acting up. She has tried using her nebulizer without significant improvement. Related Data Home Medications Medication Instructions Recorded Confirmed atorvastatin 80 mg tablet 80 mg PO DAILY 01/29/19 11/16/20 calcium and vitamin d 600 mg PO BID 01/29/19 11/16/20 fluticasone 100 mcg-salmeterol 50 1 puff INHALATION BID 01/29/19 11/16/20 mcg/dose blistr powdr for inhalation (Advair Diskus) folic acid PO DAILY 01/29/19 06/23/20 mecobalamin (vitamin B12) 1,000 1,000 mcg SL DAILY 01/29/19 11/16/20 mcg disintegrating tablet,sublingual albuterol sulfate 90 mcg/actuation 2 inhalation INHALATION Q6H PRN 08/22/19 11/16/20 breath activated powder inhaler diltiazem HCl 180 mg capsule,24 180 mg PO DAILY 06/23/20 11/16/20 hr,extended release losartan 25 mg tablet 25 mg PO DAILY 11/16/20 11/16/20 omeprazole 40 mg capsule,delayed 40 mg PO QAM 11/16/20 11/16/20 release Allergies Allergy/AdvReac Type Severity Reaction Status Date / Time No Known Drug Allergies Allergy Verified 06/23/20 13:40 Review of Systems <Deanna Poon DO - Last Filed: 11/17/20 07:07> Review of Systems Narrative: GENERAL: Denies chills, fatigue, malaise, fever, sweats, travel HEENT: Denies sinus pain, ear pain, sore throat, difficulty swallowing, neck pain RESPIRATORY: Denies dyspnea, cough, wheezing, hemoptysis, sputum. CARDIOVASCULAR: See HPI GASTROINTESTINAL: Denies nausea, vomiting, abdominal pain, diarrhea, constipation, melena. : Denies dysuria, frequency, incontinence, hematuria, urinary retention, flank pain. MUSCULOSKELETAL: Denies weakness, joint pain, or bony pain SKIN: No rash, no erythema, no pruritus NEUROLOGIC: Denies weakness, dizziness, headache, numbness, change in speech, c onfusion PSYCHIATRIC: No concerning psychosocial issues. 12 point review of systems is negative except for those stated above and HPI Patient History <Deanna Poon DO - Last Filed: 11/17/20 07:07> Medical History Afib Facet arthropathy, lumbar Foraminal stenosis of lumbar region Greater trochanteric bursitis of right hip Herniated nucleus pulposus, L5-S1 Herniated nucleus pulposus, lumbar History of DE (myocardial infarction) Lumbar radiculopathy Lumbosacral spondylosis with radiculopathy Spondylolisthesis at L4-L5 level Surgical History H/O: hysterectomy S/P appendectomy Family History Father Cancer Mother Eosinophilic pneumonia Social History marital status: number of children: 2 household members: spouse lives independently: Yes Smoking Status: Former smoker alcohol intake: current substance use type: does not use Smoking Status: Former smoker alcohol intake frequency: holidays/special occasions only Substance Use Type: does not use Exam <Deanna Poon DO - Last Filed: 11/17/20 07:07> Initial Vital Signs Initial Vital Signs: Vital Signs Pulse Rate 96 H 11/16/20 08:45 Respiratory Rate 28 H 11/16/20 08:45 Pulse Oximetry 93 11/16/20 08:45 GENERAL: Alert pleasant 70-year-old female no acute distress and in no acute distress. HEENT: Head atraumatic,EOMI, pupils reactive, face symmetric, moist mucous membranes CARDIOVASCULAR: Regular rate and rhythm without murmurs, rubs or gallops. RESPIRATORY: Slightly decreased breath sounds bilaterally expiratory wheezing noted speaking in full sentences without difficulty ABDOMEN: Soft, nontender. Normoactive bowel sounds all 4 quadrants. No guarding or rebound. EXTREMITIES: Normal range of motion, no clubbing or edema. Neurovascularly intact NEUROLOGICAL: Alert and oriented x4.Normal gait and speech. SKIN: Warm, dry, no laceration, no petechiae, no rashes or lesions. <Connie Salinas, DO - Last Filed: 11/17/20 01:17> Initial Vital Signs Initial Vital Signs: Vital Signs Pulse Rate 96 H 11/16/20 08:45 Respiratory Rate 28 H 11/16/20 08:45 Pulse Oximetry 93 11/16/20 08:45 Course <Deanna Poon, DO - Last Filed: 11/17/20 07:07> Orders Ordered: Discontinued Medications Albuterol (Albuterol 2.5 Mg/3 Ml Neb (Adult)) 5 mg INH NOW ONE Stop: 11/16/20 09:32 Last Admin: 11/16/20 09:33 Dose: 5 mg Documented by: ARLENE Albuterol/Ipratropium (Albuterol/Ipratropium 3 Ml Ampul) 3 ml INH NOW ONE Stop: 11/16/20 08:38 Last Admin: 11/16/20 09:18 Dose: 3 ml Documented by: ARLENE Apixaban (Apixaban 5 Mg Tablet) 5 mg PO NOW ONE Stop: 11/16/20 16:20 Last Admin: 11/16/20 17:00 Dose: 5 mg Documented by: JOYCE Atorvastatin Calcium (Atorvastatin 20 Mg Tablet) 80 mg PO NOW ONE Stop: 11/16/20 16:20 Last Admin: 11/16/20 16:58 Dose: 80 mg Documented by: JOYCE Diltiazem HCl (Diltiazem 30 Mg Tablet) 180 mg PO NOW ONE Stop: 11/16/20 16:20 Last Admin: 11/16/20 16:59 Dose: 180 mg Documented by: JOYCE Furosemide (Furosemide 40 Mg/4 Ml Vial) 20 mg IV NOW ONE Stop: 11/16/20 09:35 Last Admin: 11/16/20 10:15 Dose: 20 mg Documented by: DARLYN Hydromorphone HCl (Hydromorphone 0.5 Mg Inj) 0.5 mg IV NOW ONE Stop: 11/16/20 10:33 Last Admin: 11/16/20 10:37 Dose: 0.5 mg Documented by: DARLYN Hydromorphone HCl (Hydromorphone 0.5 Mg Inj) 0.5 mg IV NOW ONE Stop: 11/16/20 14:11 Last Admin: 11/16/20 14:15 Dose: 0.5 mg Documented by: JOYCE Hydromorphone HCl (Hydromorphone 0.5 Mg Inj) 0.5 mg IV NOW ONE Stop: 11/16/20 19:25 Last Admin: 11/16/20 19:52 Dose: 0.5 mg Documented by: JOYCE Sodium Chloride (Normal Saline 0.9%) 1,000 mls @ 100 mls/hr IV CONT DARYL Last Infusion: 11/16/20 20:23 Dose: 0 mls/hr Documented by: Admin: 11/16/20 13:53 Dose: 100 mls/hr Documented by: JOYCE Ceftriaxone Sodium 2,000 mg/ (Sodium Chloride) 100 mls @ 200 mls/hr IV NOW ONE Stop: 11/16/20 19:29 Last Infusion: 11/16/20 20:27 Dose: 0 mls/hr Documented by: Admin: 11/16/20 19:53 Dose: 200 mls/hr Documented by: JOYCE Azithromycin 500 mg/ Dextrose 250 mls @ 250 mls/hr IV NOW ONE Stop: 11/16/20 19:29 Last Infusion: 11/16/20 21:42 Dose: 0 mls/hr Documented by: Admin: 11/16/20 20:23 Dose: 250 mls/hr Documented by: JOYCE Methylprednisolone (Methylprednisolone 125 Mg/2 Ml Vial) 125 mg IV NOW ONE Stop: 11/16/20 08:38 Last Admin: 11/16/20 09:26 Dose: 125 mg Documented by: DARLYN Pantoprazole Sodium (Pantoprazole Dr 20 Mg Tablet) 40 mg PO NOW ONE Stop: 11/16/20 18:10 Last Admin: 11/16/20 18:24 Dose: 40 mg Documented by: JOYCE Vital Signs Vital signs: Vital Signs - 8 hr 11/16/20 17:30 11/16/20 18:00 11/16/20 18:30 Pulse Rate 114 H 112 H 100 H Respiratory Rate 24 33 H 26 H Blood Pressure 149/73 H 160/81 H 123/64 Pulse Oximetry 96 94 95 11/16/20 19:00 11/16/20 19:30 11/16/20 20:00 Pulse Rate 117 H 98 H 93 H Respiratory Rate 34 H 27 H 32 H Blood Pressure 123/68 125/67 127/68 Pulse Oximetry 90 L 94 93 11/16/20 20:30 11/16/20 21:00 11/16/20 21:30 Pulse Rate 92 H 90 87 Respiratory Rate 23 23 22 Blood Pressure 125/70 120/67 112/67 Pulse Oximetry 93 93 92 <Connie Salinas, - Last Filed: 11/17/20 01:17> Orders Ordered: Discontinued Medications Albuterol (Albuterol 2.5 Mg/3 Ml Neb (Adult)) 5 mg INH NOW ONE Stop: 11/16/20 09:32 Last Admin: 11/16/20 09:33 Dose: 5 mg Documented by: ARLENE Albuterol/Ipratropium (Albuterol/Ipratropium 3 Ml Ampul) 3 ml INH NOW ONE Stop: 11/16/20 08:38 Last Admin: 11/16/20 09:18 Dose: 3 ml Documented by: ARLENE Apixaban (Apixaban 5 Mg Tablet) 5 mg PO NOW ONE Stop: 11/16/20 16:20 Last Admin: 11/16/20 17:00 Dose: 5 mg Documented by: JOYCE Atorvastatin Calcium (Atorvastatin 20 Mg Tablet) 80 mg PO NOW ONE Stop: 11/16/20 16:20 Last Admin: 11/16/20 16:58 Dose: 80 mg Documented by: JOYCE Diltiazem HCl (Diltiazem 30 Mg Tablet) 180 mg PO NOW ONE Stop: 11/16/20 16:20 Last Admin: 11/16/20 16:59 Dose: 180 mg Documented by: JOYCE Furosemide (Furosemide 40 Mg/4 Ml Vial) 20 mg IV NOW ONE Stop: 11/16/20 09:35 Last Admin: 11/16/20 10:15 Dose: 20 mg Documented by: DARLYN Hydromorphone HCl (Hydromorphone 0.5 Mg Inj) 0.5 mg IV NOW ONE Stop: 11/16/20 10:33 Last Admin: 11/16/20 10:37 Dose: 0.5 mg Documented by: DARLYN Hydromorphone HCl (Hydromorphone 0.5 Mg Inj) 0.5 mg IV NOW ONE Stop: 11/16/20 14:11 Last Admin: 11/16/20 14:15 Dose: 0.5 mg Documented by: JOYCE Hydromorphone HCl (Hydromorphone 0.5 Mg Inj) 0.5 mg IV NOW ONE Stop: 11/16/20 19:25 Last Admin: 11/16/20 19:52 Dose: 0.5 mg Documented by: JOYCE Sodium Chloride (Normal Saline 0.9%) 1,000 mls @ 100 mls/hr IV CONT DARYL Last Infusion: 11/16/20 20:23 Dose: 0 mls/hr Documented by: Admin: 11/16/20 13:53 Dose: 100 mls/hr Documented by: JOYCE Ceftriaxone Sodium 2,000 mg/ (Sodium Chloride) 100 mls @ 200 mls/hr IV NOW ONE Stop: 11/16/20 19:29 Last Infusion: 11/16/20 20:27 Dose: 0 mls/hr Documented by: Admin: 11/16/20 19:53 Dose: 200 mls/hr Documented by: JOYCE Azithromycin 500 mg/ Dextrose 250 mls @ 250 mls/hr IV NOW ONE Stop: 11/16/20 19:29 Last Infusion: 11/16/20 21:42 Dose: 0 mls/hr Documented by: Admin: 11/16/20 20:23 Dose: 250 mls/hr Documented by: JOYCE Methylprednisolone (Methylprednisolone 125 Mg/2 Ml Vial) 125 mg IV NOW ONE Stop: 11/16/20 08:38 Last Admin: 11/16/20 09:26 Dose: 125 mg Documented by: DARLYN Pantoprazole Sodium (Pantoprazole Dr 20 Mg Tablet) 40 mg PO NOW ONE Stop: 11/16/20 18:10 Last Admin: 11/16/20 18:24 Dose: 40 mg Documented by: JOYCE Reevaluation(s) Reevaluation #1: Patient seen and evaluated by myself. Patient has some mild crackles bilateral bases. Otherwise she appears well. She is on 2 L nasal and is in the mid90s for O2 saturation. Heart rate is 93 in the room. Patient states she is feeling much better and her breathing has significantly improved here. She is aware that she has been accepted at [facility] in [place] and comfortable with plan for transfer. Reviewed patient's labs, CT findings medications received here. Time: 18:45 Consultations Consultation #1: Dr. Martita Rodriguez accepting hospitalist and [facility] in [place]. Reviewed the Dr. tellez spoke with cardiology. Patient's findings today. Medications that she has received. All questions answered. Vital Signs Vital signs: Vital Signs - 8 hr 11/16/20 17:30 11/16/20 18:00 11/16/20 18:30 Pulse Rate 114 H 112 H 100 H Respiratory Rate 24 33 H 26 H Blood Pressure 149/73 H 160/81 H 123/64 Pulse Oximetry 96 94 95 11/16/20 19:00 11/16/20 19:30 11/16/20 20:00 Pulse Rate 117 H 98 H 93 H Respiratory Rate 34 H 27 H 32 H Blood Pressure 123/68 125/67 127/68 Pulse Oximetry 90 L 94 93 11/16/20 20:30 11/16/20 21:00 11/16/20 21:30 Pulse Rate 92 H 90 87 Respiratory Rate 23 23 22 Blood Pressure 125/70 120/67 112/67 Pulse Oximetry 93 93 92 MDM - SOB/Dyspnea <Deanna Poon DO - Last Filed: 11/17/20 07:07> Lab Data Result diagrams: 11/16/20 08:40 11/16/20 08:40 Labs: Lab Results 11/16/20 11/16/20 11/16/20 Range/Units 08:37 08:40 08:40 WBC 17.6 H (4.5-11.0) X10^3/uL RBC 3.84 L (4.0-5.2) X10^6/uL Hgb 12.1 (12.0-16.0) g/dL Hct 36.5 (36-46) % MCV 95.1 (80-100) fL MCH 31.5 (26-34) PG MCHC 33.1 (30-36) % RDW 13.2 (11.6-14.8) % Plt Count 280 (150-400) X10^3/uL Neut % (Auto) 61.3 (50-75) % Lymph % (Auto) 29.2 (25-40) % [place] % (Auto) 8.0 (3-14) % Eos % (Auto) 0.7 L (2-4) % Baso % (Auto) 0.8 (0-2) % Neut # (Auto) 41254 H (3831-7228) /uL Lymph # (Auto) 5200 H (4555-4934) /uL [place] # (Auto) 1400 H (0-900) /uL Eos # (Auto) 100 (0-450) /uL Baso # (Auto) 100 (0-100) /uL Sodium 136 L (137-145) mmol/L Potassium 3.3 L (3.4-5.1) mmol/L Chloride 104 (98-107) mmol/L Carbon Dioxide 27 (22-32) mmol/L BUN 14 (7-17) mg/dL Creatinine 0.44 L (0.52-1.04) mg/dL Estimated GFR > 60.0 (>60) mL/min BUN/Creatinine Ratio 31.8 H (6-22) Glucose 100 (80-110) mg/dL Calcium 9.3 (8.4-10.2) mg/dL Total Bilirubin 0.4 (0.2-1.3) mg/dL AST 35 (14-36) IU/L ALT 21 (<35) IU/L Alkaline Phosphatase 77 (38-126) U/L Total Creatine Kinase 76 (30-135) U/L CK-MB (CK-2) TNP CK-MB (CK-2) Rel Index TNP Troponin I 2.950 H* (0.01-0.034) ng/mL NT-Pro-B Natriuret Pep 756 H (<125) pg/mL Total Protein 6.8 (6.3-8.2) g/dL Albumin 4.1 (3.5-5.0) g/dL Globulin 2.7 (1.7-4.1) g/dL Albumin/Globulin Ratio 1.5 (1.0-2.8) Lipase 32 (23-300) U/L Procalcitonin (<0.5) ng/mL SARS-CoV-2 (PCR) Negative (Negative) 11/16/20 11/16/20 Range/Units 10:34 10:34 WBC (4.5-11.0) X10^3/uL RBC (4.0-5.2) X10^6/uL Hgb (12.0-16.0) g/dL Hct (36-46) % MCV (80-100) fL MCH (26-34) PG MCHC (30-36) % RDW (11.6-14.8) % Plt Count (150-400) X10^3/uL Neut % (Auto) (50-75) % Lymph % (Auto) (25-40) % [place] % (Auto) (3-14) % Eos % (Auto) (2-4) % Baso % (Auto) (0-2) % Neut # (Auto) (7096-6479) /uL Lymph # (Auto) (5508-9732) /uL [place] # (Auto) (0-900) /uL Eos # (Auto) (0-450) /uL Baso # (Auto) (0-100) /uL Sodium (137-145) mmol/L Potassium (3.4-5.1) mmol/L Chloride (98-107) mmol/L Carbon Dioxide (22-32) mmol/L BUN (7-17) mg/dL Creatinine (0.52-1.04) mg/dL Estimated GFR (>60) mL/min BUN/Creatinine Ratio (6-22) Glucose (80-110) mg/dL Calcium (8.4-10.2) mg/dL Total Bilirubin (0.2-1.3) mg/dL AST (14-36) IU/L ALT (<35) IU/L Alkaline Phosphatase (38-126) U/L Total Creatine Kinase (30-135) U/L CK-MB (CK-2) CK-MB (CK-2) Rel Index Troponin I 2.730 H* (0.01-0.034) ng/mL NT-Pro-B Natriuret Pep (<125) pg/mL Total Protein (6.3-8.2) g/dL Albumin (3.5-5.0) g/dL Globulin (1.7-4.1) g/dL Albumin/Globulin Ratio (1.0-2.8) Lipase (23-300) U/L Procalcitonin 0.05 (<0.5) ng/mL SARS-CoV-2 (PCR) (Negative) Imaging Data Chest x-ray: Radiologist's Impression: PROCEDURE:? XR CHEST 1V ? INDICATIONS:? Short of breath ? TECHNIQUE:? One view of the chest was acquired.? ? COMPARISON:? [facility], , CHEST 1 VIEW, 03/28/2015, 9:35.? [facility], , XR CHEST 2V, 06/19/2018, 12:20. ? FINDINGS:? ? Surgical changes and devices:? None.? ? Lungs and pleura:? Lungs are clear, yet hyperexpanded.? No pleural effusions or pneumothorax.? ? Mediastinum:? Mediastinal contours appear normal.? Heart size is normal.? Atherosclerotic calcification of the aortic arch is noted.? ? Bones and chest wall:? No suspicious bony lesions.? Overlying soft tissues appear unremarkable.? ? ? IMPRESSION:? ? Hyperexpanded lungs, without an acute cardiopulmonary process identified. ? ? Dictated by: Naresh Foote M.D. on 11/16/2020 at 8:32 ? ? Approved by: Naresh Foote M.D. on 11/16/2020 at 8:32? CT scan - chest: Radiologist's Impression: PROCEDURE:? CT ANGIO CHEST PE PROTOCOL ? INDICATIONS:? sob and cp ablation 2 days ago ? TECHNIQUE:? After the administration of intravenous contrast, 2 mm thick sections acquired from the pulmonary apices to the posterior costophrenic angles.? 3-dimensional maximum intensity projection (MIP) coronal and sagittal reformats were then acquired through the thorax.? For radiation dose reduction, the following was used:? automated exposure control, adjustment of mA and/or kV according to patient size.? ? COMPARISON:? None. ? FINDINGS:? Image quality:? Excellent.? ? Pulmonary arteries:? Pulmonary arteries are normal in size, and demonstrate no intraluminal filling defects to suggest central pulmonary embolism.? ? Lungs and pleura:? The airways are patent and there is mild right lower lung bronchial wall thickening.? Coarsening of the interstitial markings at the lung bases and superimposed moderate emphysematous changes are present.? There is biapical pleural plaquing and biapical fibrotic change.? There is a spiculated pleural-based mass in the anterior medial left upper lobe measuring 2.7 x 2.4 x 2.6 cm extending into the adjacent mediastinal fat.? Small bilateral pleural effusions are present. ? Mediastinum:? Heart size is mildly enlarged, without pericardial effusion. Heavy coronary artery calcification. ? No mediastinal or hilar adenopathy.? Small lymph nodes in the bilateral infrahilar regions.? Thoracic aorta is normal in caliber and enhancement.? Esophagus is normal in caliber, without hiatal hernia.? ? Bones and chest wall:? No suspicious bony lesions.? Ribs and thoracic spine appear intact throughout.? Thyroid gland is partially imaged and the visible portion is grossly normal..? No axillary or supraclavicular adenopathy.? ? Abdomen:? Visualized upper abdominal solid organs appear normal in the early arterial phase of enhancement.? ? IMPRESSION:? 1. No pulmonary embolus.? 2. Moderate emphysema and early fibrotic changes. 3.? 2.7 cm pleural-based soft tissue mass in the anterior medial left upper lobe. 4. Cardiomegaly and heavy coronary artery calcification. 5. Mild bibasilar interstitial thickening and small bilateral pleural effusions may suggest early CHF. 6. Findings discussed with Dr. Poon in the emergency room at 11:03 hours.? ? Dictated by: Svetlana Alanis M.D. on 11/16/2020 at 10:52 ? ECG Data Interpretation: EKG 1. Sinus rhythm rate 101 SC interval 116 QRS 76 no T-wave inversions slight ST depression in precordial leads EKG 2. Sinus rhythm rate 114 no changes from prior EKG 3. Sinus rhythm rate 121 no change MDM Narrative Medical decision making narrative: Bedside ultrasound does show small amount of pericardial effusion. Patient does have history of asthma/COPD she is a former smoker she is quite tight and wheezy she is given a DuoNeb treatment however with recent ablation possible mild CHF as well as BNP is 756. She is also given Lasix. Initially she was improving however oxygen decreased to 88%. She is also splinting with this left-sided cost so kind dry radius pain. Left-sided pain is pinpoint is worse with movement she had at injury prior to her ablation this is the same pain that she has been feeling. She is given pain medication for this as well. However CT angio is done to rule out any other etiology. She has some mild pleural effusion no pulmonary embolism. Unfortunately a anterior medial left upper mass is found high suspicion for cancer. I did discuss this with the patient she would prefer that her not know this at this time. She was previously a very heavy smoker and this is not a surprise to her. Patient's troponin is also noted to be elevated 2.7 which is to be expected after most recent ablation. Her 2nd troponin decreased slightly to 2.5. No significant EKG changes. Patient was placed on 2 L of oxygen. She was has been intermittently tachycardic but appears to be sinus. Attempt at ambulating patient without oxygen the O2 drops to 85% and heart rate increases to 130. The patient does seem to be COPD exacerbation, she is given Solu-Medrol 11am Dr. Altamirano, cardiology updated patient's symptoms and test results, at this time has no further recommendations but is happy to have patient transferred to [facility] for any further treatment Reginaldo Villeda hospitalist at [facility], had this time with recent procedure elevated troponin even though it is expected would prefer patient be transferred to higher level of care As we have been waiting bed at [facility] most of the day. They anticipate open beds Patient signed out to Dr. Salinas for further july <Connie Salinas, - Last Filed: 11/17/20 01:17> Lab Data Labs: Lab Results 11/16/20 11/16/20 11/16/20 Range/Units 08:37 08:40 08:40 WBC 17.6 H (4.5-11.0) X10^3/uL RBC 3.84 L (4.0-5.2) X10^6/uL Hgb 12.1 (12.0-16.0) g/dL Hct 36.5 (36-46) % MCV 95.1 (80-100) fL MCH 31.5 (26-34) PG MCHC 33.1 (30-36) % RDW 13.2 (11.6-14.8) % Plt Count 280 (150-400) X10^3/uL Neut % (Auto) 61.3 (50-75) % Lymph % (Auto) 29.2 (25-40) % [place] % (Auto) 8.0 (3-14) % Eos % (Auto) 0.7 L (2-4) % Baso % (Auto) 0.8 (0-2) % Neut # (Auto) 88896 H (3396-6381) /uL Lymph # (Auto) 5200 H (5992-5159) /uL [place] # (Auto) 1400 H (0-900) /uL Eos # (Auto) 100 (0-450) /uL Baso # (Auto) 100 (0-100) /uL Sodium 136 L (137-145) mmol/L Potassium 3.3 L (3.4-5.1) mmol/L Chloride 104 (98-107) mmol/L Carbon Dioxide 27 (22-32) mmol/L BUN 14 (7-17) mg/dL Creatinine 0.44 L (0.52-1.04) mg/dL Estimated GFR > 60.0 (>60) mL/min BUN/Creatinine Ratio 31.8 H (6-22) Glucose 100 (80-110) mg/dL Calcium 9.3 (8.4-10.2) mg/dL Total Bilirubin 0.4 (0.2-1.3) mg/dL AST 35 (14-36) IU/L ALT 21 (<35) IU/L Alkaline Phosphatase 77 (38-126) U/L Total Creatine Kinase 76 (30-135) U/L CK-MB (CK-2) TNP CK-MB (CK-2) Rel Index TNP Troponin I 2.950 H* (0.01-0.034) ng/mL NT-Pro-B Natriuret Pep 756 H (<125) pg/mL Total Protein 6.8 (6.3-8.2) g/dL Albumin 4.1 (3.5-5.0) g/dL Globulin 2.7 (1.7-4.1) g/dL Albumin/Globulin Ratio 1.5 (1.0-2.8) Lipase 32 (23-300) U/L Procalcitonin (<0.5) ng/mL SARS-CoV-2 (PCR) Negative (Negative) 11/16/20 11/16/20 Range/Units 10:34 10:34 WBC (4.5-11.0) X10^3/uL RBC (4.0-5.2) X10^6/uL Hgb (12.0-16.0) g/dL Hct (36-46) % MCV (80-100) fL MCH (26-34) PG MCHC (30-36) % RDW (11.6-14.8) % Plt Count (150-400) X10^3/uL Neut % (Auto) (50-75) % Lymph % (Auto) (25-40) % [place] % (Auto) (3-14) % Eos % (Auto) (2-4) % Baso % (Auto) (0-2) % Neut # (Auto) (6242-0684) /uL Lymph # (Auto) (4227-0636) /uL [place] # (Auto) (0-900) /uL Eos # (Auto) (0-450) /uL Baso # (Auto) (0-100) /uL Sodium (137-145) mmol/L Potassium (3.4-5.1) mmol/L Chloride (98-107) mmol/L Carbon Dioxide (22-32) mmol/L BUN (7-17) mg/dL Creatinine (0.52-1.04) mg/dL Estimated GFR (>60) mL/min BUN/Creatinine Ratio (6-22) Glucose (80-110) mg/dL Calcium (8.4-10.2) mg/dL Total Bilirubin (0.2-1.3) mg/dL AST (14-36) IU/L ALT (<35) IU/L Alkaline Phosphatase (38-126) U/L Total Creatine Kinase (30-135) U/L CK-MB (CK-2) CK-MB (CK-2) Rel Index Troponin I 2.730 H* (0.01-0.034) ng/mL NT-Pro-B Natriuret Pep (<125) pg/mL Total Protein (6.3-8.2) g/dL Albumin (3.5-5.0) g/dL Globulin (1.7-4.1) g/dL Albumin/Globulin Ratio (1.0-2.8) Lipase (23-300) U/L Procalcitonin 0.05 (<0.5) ng/mL SARS-CoV-2 (PCR) (Negative) MDM Narrative Medical decision making narrative: Bedside ultrasound does show small amount of pericardial effusion. Patient does have history of asthma/COPD she is a former smoker she is quite tight and wheezy she is given a DuoNeb treatment however with recent ablation possible mild CHF as well as BNP is 756. She is also given Lasix. Initially she was improving however oxygen decreased to 88%. She is also splinting with this left-sided cost so kind dry radius pain. Left-sided pain is pinpoint is worse with movement she had at injury prior to her ablation this is the same pain that she has been feeling. She is given pain medication for this as well. However CT angio is done to rule out any other etiology. She has some mild pleural effusion no pulmonary embolism. Unfortunately a anterior medial left upper mass is found high suspicion for cancer. I did discuss this with the patient she would prefer that her not know this at this time. She was previously a very heavy smoker and this is not a surprise to her. Patient's troponin is also noted to be elevated 2.7 which is to be expected after most recent ablation. Her 2nd troponin decreased slightly to 2.5. No significant EKG changes. Patient was placed on 2 L of oxygen. She was has been intermittently tachycardic but appears to be sinus. Attempt at ambulating patient without oxygen the O2 drops to 85% and heart rate increases to 130. The patient does seem to be COPD exacerbation, she is given Solu-Medrol 11am Dr. Altamirano, cardiology updated patient's symptoms and test results, at this time has no further recommendations but is happy to have patient transferred to [facility] for any further treatment Reginaldo kimbleist at [facility], had this time with recent procedure elevated troponin even though it is expected would prefer patient be transferred to higher level of care As we have been waiting bed at [facility] most of the day. They anticipate open beds Patient signed out to Dr. Salinas for further july 70-year-old female signed out to myself by Dr. Poon for possible CHF. Patient case was discussed with cardiology at [facility] patient received her ablation. They felt she would be appropriate transfer under the hospitalist service. Is 2 days post ablation last Tuesday. She also developed left-sided chest pain the dayprior to her ablation after reaching and wrapping her chest along side a countertop. Patient states she was discharged from the hospital was doing well but had increasing shortness of breath particularly overnight. She does have a history of what she describes as asthma and tried her inhalers but felt she could even get a good breath with that. She presents today for shortness of breath. Patient did became hypoxic into the mid 80s and required 2 L nasal cannula most. She is persistently tachycardic for about 5-6 hours but has since improved to the 90s range. Patient's labs show a positive troponin which is trending down words and unclear the etiology is patient did just have an ablation. Patient's was in what appeared to be sinus tachycardia which has been resolving to a more sinus rhythm. Patient does have a leukocytosis, no clear source of infection, she has bilateral pleural effusions with a a mildly elevated BNP at 750 range. CTA shows no pulmonary emboli. She does have emphysematous changes and there is a noted soft tissue mass of unknown origin or significance. Was wheezy and received several treatments of albuterol, Solu- Medrol and she did find this helpful. Patient is no longer wheezy she does have crackles in her bases. She was also received Lasix here in the department. And patient was also given covering dose of antibiotics for possible COPD exacerbation. I spoke with Dr. Martita Rodriguez the hospitalist who accepts for tra nsfer. Discharge Plan Departure Patient Disposition: Xfer Acute [facility] Clinical Impression: CHF (congestive heart failure), Asthma exacerbation Prescriptions: No Action omeprazole 40 mg capsule,delayed release(DR/EC) 40 mg PO QAM RF: 0 losartan 25 mg Tablet 25 mg PO DAILY RF: 0 atorvastatin 80 mg tablet 80 mg PO DAILY RF: 0 fluticasone propion-salmeterol [Advair Diskus] 100-50 mcg/dose blister with device 1 puff INHALATION BID RF: 0 folic acid PO DAILY RF: 0 calcium and vitamin d 600 mg PO BID RF: 0 mecobalamin (vitamin B12) 1,000 mcg tablet,disintegrating 1,000 mcg SL DAILY RF: 0 albuterol sulfate 90 mcg/actuation aerosol powdr breath activated 2 inhalation INHALATION Q6H PRN (Reason: Adequate Ventilation) RF: 0 diltiazem HCl 180 mg capsule,extended release 24 hr 180 mg PO DAILY RF: 0 Referrals: Elizabeth Cartagena MD [Primary Care Provider] -
[2020-11-16 08:51] LABS: Add Manual Diff / Slide Review NO; Basophils Absolute Auto 100 /uL (0-100); Basophils Percent Auto 0.8 % (0-2); Eosinophils Absolute Auto 100 /uL (0-450); Eosinophils Percent Auto 0.7 % (2-4); Hematocrit 36.5 % (36-46); Hemoglobin 12.1 g/dL (12.0-16.0); Lymphocytes Absolute Auto 5200 /uL (1100-4500); Lymphocytes Percent Auto 29.2 % (25-40); Mean Corpuscular HGB Conc 33.1 % (30-36); Mean Corpuscular Hemoglobin 31.5 PG (26-34); Mean Corpuscular Volume 95.1 fL (80-100); Monocytes Absolute Auto 1400 /uL (0-900); Neutrophils Absolute Auto 10800 /uL (1500-7000); Neutrophils Percent Auto 61.3 % (50-75); Platelet Count 280 X10^3/uL (150-400); Red Blood Cell Count 3.84 X10^6/uL (4.0-5.2); Red Cell Distribution Width 13.2 % (11.6-14.8); White Blood Cell Count 17.6 X10^3/uL (4.5-11.0)
[2020-11-16 09:01] LABS: Alanine Aminotransferase 21 IU/L (<35); Albumin 4.1 g/dL (3.5-5.0); Albumin Globulin Ratio 1.5 (1.0-2.8); Alkaline Phosphatase 77 U/L (38-126); Aspartate Aminotransferase 35 IU/L (14-36); BUN Creatinine Ratio 31.8 (6-22); Bilirubin Total 0.4 mg/dL (0.2-1.3); Blood Urea Nitrogen 14 mg/dL (7-17); Calcium 9.3 mg/dL (8.4-10.2); Carbon Dioxide 27 mmol/L (22-32); Chloride 104 mmol/L (98-107); Creatine Kinase 76 U/L (30-135); Estimated Glomerular Filt Rate > 60.0 mL/min (>60); Globulin 2.7 g/dL (1.7-4.1); Glucose 100 mg/dL (80-110); HEMOLYSIS < 15 (0-50); Lipase 32 U/L (23-300); Potassium 3.3 mmol/L (3.4-5.1); Sodium 136 mmol/L (137-145); Total Protein 6.8 g/dL (6.3-8.2)
[2020-11-16 09:10] LABS: COVID19 -Nasal RAPID Negative (Negative)
[2020-11-16 09:13] LABS: NT-proBNP (BNP-Adult 18+) 756 pg/mL (<125)
[2020-11-16] MEDS: ALBUTEROL/IPRATROPIUM 3 ML AMPUL INH (09:18)
[2020-11-16] MEDS: methylPREDNISolone 125 MG/2 ML VIAL IV (09:26)
[2020-11-16] MEDS: ALBUTEROL 2.5 MG/3 ML NEB (ADULT) 5 MG INH (09:33)
[2020-11-16] MEDS: FUROSEMIDE 40 MG/4 ML VIAL 20 MG IV (10:15)
--- NOTE | 2020-11-16 10:32 | DI.CT.S_ITS ---
PROCEDURE: CT ANGIO CHEST PE PROTOCOL INDICATIONS: sob and cp ablation 2 days ago TECHNIQUE: After the administration of intravenous contrast, 2 mm thick sections acquired from the pulmonary apices to the posterior costophrenic angles. 3-dimensional maximum intensity projection (MIP) coronal and sagittal reformats were then acquired through the thorax. For radiation dose reduction, the following was used: automated exposure control, adjustment of mA and/or kV according to patient size. COMPARISON: None. FINDINGS: Image quality: Excellent. Pulmonary arteries: Pulmonary arteries are normal in size, and demonstrate no intraluminal filling defects to suggest central pulmonary embolism. Lungs and pleura: The airways are patent and there is mild right lower lung bronchial wall thickening. Coarsening of the interstitial markings at the lung bases and superimposed moderate emphysematous changes are present. There is biapical pleural plaquing and biapical fibrotic change. There is a spiculated pleural-based mass in the anterior medial left upper lobe measuring 2.7 x 2.4 x 2.6 cm extending into the adjacent mediastinal fat. Small bilateral pleural effusions are present. Mediastinum: Heart size is mildly enlarged, without pericardial effusion. Heavy coronary artery calcification. No mediastinal or hilar adenopathy. Small lymph nodes in the bilateral infrahilar regions. Thoracic aorta is normal in caliber and enhancement. Esophagus is normal in caliber, without hiatal hernia. Bones and chest wall: No suspicious bony lesions. Ribs and thoracic spine appear intact throughout. Thyroid gland is partially imaged and the visible portion is grossly normal.. No axillary or supraclavicular adenopathy. Abdomen: Visualized upper abdominal solid organs appear normal in the early arterial phase of enhancement. IMPRESSION: 1. No pulmonary embolus. 2. Moderate emphysema and early fibrotic changes. 3. 2.7 cm pleural-based soft tissue mass in the anterior medial left upper lobe. 4. Cardiomegaly and heavy coronary artery calcification. 5. Mild bibasilar interstitial thickening and small bilateral pleural effusions may suggest early CHF. 6. Findings discussed with Dr. Poon in the emergency room at 11:03 hours. Dictated by: Svetlana Alanis M.D. on 11/16/2020 at 10:52 Approved by: Svetlana Alanis M.D. on 11/16/2020 at 11:05
[2020-11-16] MEDS: HYDROMORPHONE 0.5 MG INJ IV ×3 (10:37→19:52)
[2020-11-16] MEDS: SODIUM CHLORIDE 0.9% 1,000 ML 100 ML IV (13:53)
[2020-11-16] MEDS: ATORVASTATIN 20 MG TABLET 80 MG PO (16:58)
[2020-11-16] MEDS: dilTIAZem 30 MG TABLET 180 MG PO (16:59)
[2020-11-16] MEDS: APIXABAN 5 MG TABLET PO (17:00)
[2020-11-16] MEDS: PANTOPRAZOLE DR 20 MG TABLET 40 MG PO (18:24)
[2020-11-16] MEDS: cefTRIAXone 2,000 MG in SODIUM CHLORIDE 0.9% 100 ML 200 ML IV (19:53)
[2020-11-16 20:05] LABS: Procalcitonin 0.05 ng/mL (<0.5)
[2020-11-16] MEDS: AZITHROMYCIN 500 MG in DEXTROSE 5% IN WATER 250 ML IV (20:23)
== END 2020-11-16 22:26 | disposition short-term general hospital (02) ==
PROVIDERS: Emergency Medicine; Emergency Provider Emergency Medicine; Family Provider Neurological Surgery; PCP Family Medicine
DX: I50.9 Heart failure, unspecified (principal); J45.901 Unspecified asthma with (acute) exacerbation; R00.0 Tachycardia, unspecified; Z20.822 Contact with and (suspected) exposure to COVID-19
CPT/HCPCS: 36415; 71045; 71275; 80053; 82550; 83690; 83880; 84145; 84484; 85025; 87635; 93005; 94150; 94640; 96361; 96365; 96367; 96375; 96376; 99285; C9803; J0696; J1170; J1940; J2930; J7613; Q9967

== ENCOUNTER → 2020-12-03 08:03 | Outpatient (CLI) | payer MEDICARE, OTHER, SELFPAY ==
--- NOTE | 2020-12-03 09:16 | DI.CT.S_ITS ---
PROCEDURE: CT CHEST ABD PEL W CON INDICATIONS: lung cancer, left upper quaudrant abd pain TECHNIQUE: After the administration of oral and intravenous contrast, axial sections acquired from the supraclavicular neck to the pubic symphysis. Coronal and sagittal reformats were performed. For radiation dose reduction, the following was used: automated exposure control, adjustment of mA and/or kV according to patient size. COMPARISON: [facility], CT, CT ANGIO CHEST PE PROTOCOL, 11/16/2020, 10:40. FINDINGS: Image quality: Excellent. CHEST: Previously described spiculated pleural-based mass in the anterior-medial left upper lobe has not significantly changed in size from 11/16/2020 study. Biapical pleural parenchymal scarring is similar. Coarsened interstitial markings in the lung bases with moderate to severe emphysema again noted. No threshold enlarged mediastinal or hilar lymph node. Normal heart size. No pericardial effusion. Normal caliber thoracic aorta and main pulmonary trunk. Aortic and coronary atherosclerosis. No suspicious lytic or blastic osseous chest wall lesion. ABDOMEN: Liver: No suspicious hepatic mass. Gallbladder: Normal. Biliary ducts: Nondilated. Pancreas: Normal appearance of the pancreas without evidence of mass or ductal dilatation. Spleen: Normal size and appearance of the spleen. Adrenal Glands: No adrenal gland nodule or mass. Kidneys and Ureters: Unremarkable. Stomach and Bowel: No abnormally dilated or thickened loop of bowel. No pericolonic or mesenteric inflammatory changes. Peritoneum: No abnormal intraperitoneal fluid. No free air. Ventral Wall: No hernia. Abdominal Nodes: No retroperitoneal or mesenteric adenopathy by size criteria. Vessels: Aorta and inferior vena cava are normal in size. PELVIS: Pelvic Organs: Unremarkable. Bladder: Unremarkable. Pelvic Nodes: No enlarged lymph nodes. Miscellaneous: No inguinal hernias are seen. Bones: Unremarkable. IMPRESSION: 1. Unchanged size of pleural-based spiculated mass in the anterior-medial left upper lobe. 2. No evidence of shanita metastatic disease or distant metastatic disease. Dictated by: Poncho Akbar M.D. on 12/03/2020 at 9:22 Approved by: Poncho Akbar M.D. on 12/03/2020 at 9:29
== END ==
PROVIDERS: Family Provider Neurological Surgery; PCP Family Medicine; Referring Provider Internal Medicine Hematology & Oncology; Visit Provider Internal Medicine Hematology & Oncology
DX: R10.9 Unspecified abdominal pain (principal); C34.92 Malignant neoplasm of unspecified part of left bronchus or lung
CPT/HCPCS: 71260; 74177; Q9967

== ENCOUNTER → 2020-12-04 13:51 | Outpatient (CLI) | payer MEDICARE, OTHER, SELFPAY ==
[2020-12-04 15:03] LABS: COVID19 -Nasal RAPID Negative (Negative)
== END ==
PROVIDERS: Family Provider Neurological Surgery; PCP Family Medicine; Referring Provider Internal Medicine; Visit Provider Internal Medicine
DX: Z20.822 Contact with and (suspected) exposure to COVID-19 (principal)
CPT/HCPCS: 87635; C9803

== ENCOUNTER → 2020-12-05 07:01 | Outpatient (CLI) | payer MEDICARE, OTHER, SELFPAY ==
--- NOTE | 2020-12-10 09:56 | PM.PFT.1 ---
Pulmonary Function Test Referral & Results Date Patient Seen: 12/05/20 Requesting provider: Scotyt Umana Results: The spirometry demonstrates an FVC of 2.01 L which is 74% of predicted. The FEV1 was measured at 0.89 L which is 43% of predicted. The FEV1/FVC ratio was 44 which is 58% of predicted. Following the administration of bronchodilator there was a 33% improvement in FEV1 and a 101% improvement in FEF 25-75% Lung volumes show an SVC of 2.11 L which is 81% of predicted. The diffusing capacity was measured at a 0.06 which is 39% of predicted. No hemoglobin value was provided, so no correction for potential anemia could be made, if appropriate. The maximum voluntary ventilation was reduced Interpretation: This study demonstrates severe obstructive lung disease with FEV1 less than 1 L as above. There is evidence of significant benefit following bronchodilator as above Lung volumes are minimally reduced suggesting mild restrictive lung disease There is also moderately severe reduction diffusing capacity suggesting significant disease at the capillary alveolar level Compared to PFTs performed in October 2018, current study shows a decline in FEV1 from previous value of 1.31 L to current value of 0.89 L. there is also a notable decline in diffusing capacity as well previously at 12.57 currently at 8.06 Clinical correlation suggested
== END ==
PROVIDERS: Family Provider Neurological Surgery; PCP Family Medicine; Referring Provider Internal Medicine Critical Care Medicine; Visit Provider Internal Medicine Critical Care Medicine
DX: J44.9 Chronic obstructive pulmonary disease, unspecified (principal); R91.8 Other nonspecific abnormal finding of lung field; Z87.891 Personal history of nicotine dependence
CPT/HCPCS: 94060; 94726; 94729

== ENCOUNTER → 2021-01-07 09:00 | Outpatient (CLI) | payer MEDICARE, OTHER, SELFPAY ==
[2021-01-07 11:29] LABS: COVID19 -Nasal RAPID Negative (Negative)
== END ==
PROVIDERS: Family Provider Neurological Surgery; PCP Family Medicine; Referring Provider Internal Medicine; Visit Provider Internal Medicine
DX: Z20.822 Contact with and (suspected) exposure to COVID-19 (principal)
CPT/HCPCS: 87635; C9803

== ENCOUNTER → 2021-01-08 16:47 | Outpatient (CLI) | payer MEDICARE, OTHER, SELFPAY ==
--- NOTE | 2021-01-14 08:31 | PM.PFT.1 ---
Pulmonary Function Test Referral & Results Date Patient Seen: 01/08/21 Requesting provider: Katey Thomas Results: The spirometry demonstrates an FVC of 1.42 L which is 52% of predicted. The FEV1 was measured at 0.67 L which is 32% of predicted. The FEV1/FVC ratio was 47 which is 62% of predicted. Following the administration of bronchodilator there was a 43% improvement in FEV1 and a 174% improvement in FEF 25-75% Lung volumes show an SVC of 1.95 L which is 75% of predicted. The diffusing capacity was measured at 8.26 L which is 40% of predicted. No hemoglobin value was provided, so no correction for potential anemia could be made, if appropriate. The maximum voluntary ventilation was severely reduced Interpretation: This study demonstrates severe obstructive lung disease with FEV1 of less than 1 L. There is evidence of significant benefit after bronchodilator There is also moderate restrictive lung disease based on reduction in lung volumes There is also a significant reduction in diffusing capacity suggesting significant disease is present at the capillary alveolar level as well Compared to PFTs performed in November 2020, current study is essentially unchanged although FEV1 has declined slightly but probably within test to test variation. Clinical correlation suggested
== END ==
PROVIDERS: Family Provider Neurological Surgery; PCP Family Medicine; Referring Provider Internal Medicine Pulmonary Disease; Visit Provider Internal Medicine Pulmonary Disease
DX: C34.92 Malignant neoplasm of unspecified part of left bronchus or lung (principal); J98.4 Other disorders of lung; Z87.891 Personal history of nicotine dependence; J98.8 Other specified respiratory disorders
CPT/HCPCS: 94060; 94726; 94729

== ENCOUNTER → 2021-05-18 09:49 | Outpatient (CLI) | payer MEDICARE, OTHER, SELFPAY ==
[2021-05-18 10:56] LABS: COVID19 -Nasal RAPID Negative (Negative)
== END ==
PROVIDERS: Family Provider Neurological Surgery; PCP Family Medicine; Visit Provider Surgery
DX: Z20.822 Contact with and (suspected) exposure to COVID-19 (principal)
CPT/HCPCS: 87635; C9803

== ENCOUNTER 2021-05-21 11:02 | Day surgery (SDC) | payer MEDICARE, OTHER, SELFPAY ==
[2021-05-20 12:42] VITALS: BMI 18.8
[2021-05-21 11:38] VITALS: BP 122/84; PULSE 88; RESP 16; TEMP 36.6; O2SAT 99; BMI 18.8
[2021-05-21] MEDS: LACTATED RINGERS 1,000 ML 42 ML IV (11:53)
--- NOTE | 2021-05-21 12:37 | P.HP_ITS ---
History of Present Illness History of Present Illness Date Patient Seen: 05/21/21 Time Patient Seen: 12:37 Chief complaint: PORT PLACEMENT Narrative: Sherry is a 70-year-old woman with recent diagnosis of left lung cancer. She is scheduled to have chemotherapy. She has also had recent cardiac stents placed and she is on Plavix. She had been on Eliquis but she stopped that 2 days ago. Patient History Medical History (Updated 05/20/21 @ 12:17 by Nicci Klein RN) Afib Arthritis Juarez's esophagus CAD (coronary artery disease) Cervical cancer (1981) COPD (chronic obstructive pulmonary disease) Facet arthropathy, lumbar Foraminal stenosis of lumbar region Greater trochanteric bursitis of right hip Herniated nucleus pulposus, L5-S1 Herniated nucleus pulposus, lumbar History of AL (myocardial infarction) HLD (hyperlipidemia) HTN (hypertension) Lumbar radiculopathy Lumbosacral spondylosis with radiculopathy Peripheral artery disease Spondylolisthesis at L4-L5 level Stomach ulcer Surgical History (Updated 05/20/21 @ 12:41 by Nicci Klein RN) H/O: hysterectomy History of cardiac radiofrequency ablation History of surgical procedure (02/2021) Hx of heart artery stent (01/29/21) Hx of laminectomy (2001) Hx of laminectomy (2020) S/P appendectomy Family & Social History Family History Father Cancer Mother Eosinophilic pneumonia Social History: household members spouse lives independently Yes Tobacco & Substance use: Smoking Status Former smoker alcohol intake never alcohol intake frequency holiday/special occasion Substance Use Type does not use Meds Home Medications and Allergies Home Medications Medication Instructions Recorded Confirmed Type atorvastatin 80 mg tablet 80 mg PO DAILY 01/29/19 05/21/21 History calcium and vitamin d 600 mg PO BID 01/29/19 05/21/21 History fluticasone 100 mcg-salmeterol 50 1 puff INHALATION BID 01/29/19 05/13/21 History mcg/dose blistr powdr for inhalation (Advair Diskus) folic acid 1 mg PO DAILY 01/29/19 05/21/21 History mecobalamin (vitamin B12) 1,000 1,000 mcg SL DAILY 01/29/19 05/21/21 History mcg disintegrating tablet,sublingual albuterol sulfate 90 mcg/actuation 2 inhalation INHALATION Q6H PRN 08/22/19 05/21/21 History breath activated powder inhaler isosorbide dinitrate 20 mg tablet 30 mg PO BID 12/01/20 05/21/21 History metoprolol tartrate 25 mg tablet 50 mg PO BID 12/01/20 05/21/21 History albuterol sulfate 2.5 mg INHALATION QID PRN 05/20/21 05/21/21 History apixaban 5 mg tablet (Eliquis) 5 mg PO BID 05/20/21 05/21/21 History clopidogrel 75 mg tablet 75 mg PO DAILY 05/20/21 05/21/21 History nitroglycerin 0.4 mg sublingual 0.4 mg SUBLINGUAL Q5M PRN 05/20/21 05/20/21 History tablet (Nitrostat) ondansetron 8 mg disintegrating 8 mg PO Q8H PRN 05/20/21 05/20/21 History tablet pantoprazole 40 mg tablet,delayed 40 mg PO DAILY 05/20/21 05/21/21 History release (Protonix) fluticasone propionate 230 230 inh INHALATION DAILY 05/21/21 05/21/21 History mcg-salmeterol 21 mcg/actuation HFA inhaler (Advair HFA) Allergies Allergy/AdvReac Type Severity Reaction Status Date / Time No Known Drug Allergies Allergy Verified 06/23/20 13:40 Exam Vital Signs (past 8 hours): - 05/21/21 11:38 Temperature 97.9 F Pulse Rate 88 Respiratory Rate 16 Blood Pressure 122/84 Pulse Oximetry 99 Oxygen Delivery Method Room Air Const General: No acute distress [facility] Head: normal to inspection Eyes General: appearance normal, both eyes and all related structures Neck Neck: normal visual inspection Chest Chest: normal inspection of the chest Resp Effort & Inspection: normal respiratory effort Assessment & Plan Assessment and plan (1) Adenocarcinoma of left lung: Status: Acute Plan We discussed the risks and benefits of Port-A-Cath. She would like to proceed. COVID-19 COVID-19 status: Negative Result date/Date tested (Pos, Neg/Pending): 05/20/21 Time Spent With Patient Critical Care time: I spent a total of [] minutes of critical care time on this patient's care today; this time is exclusive of procedural time.
--- NOTE | 2021-05-21 13:46 | SUR.OPER ---
Supine on padded OR bed, head on pillow, right arm padded and tucked at side, left arm on padded arm board at less than 90 degrees. Legs uncrossed, safety belt at thigh, tape over blanket over lower legs .
[2021-05-21] MEDS: BUPIVACAINE 0.5% (PF) VIAL 30 ML INJ (13:50)
[2021-05-21] MEDS: LIDOCAINE 1% W/EPI 20 ML INJ (13:51)
[2021-05-21] MEDS: SODIUM CHLORIDE 0.9% FLUSH 10 ML IV (13:54)
--- NOTE | 2021-05-21 14:09 | DI.RAD.S_ITS ---
PROCEDURE: XR CHEST 1V INDICATIONS: RT PORT A CATH TECHNIQUE: One view of the chest was acquired. COMPARISON: [facility], CR, XR CHEST 1V, 11/16/2020, 9:00. FINDINGS: Surgical changes and devices: Right chest wall Port-A-Cath tip is in SVC. Left-sided PICC line tip is in SVC. Lungs and pleura: Lungs are clear. No pleural effusions or pneumothorax. Mediastinum: Mediastinal contours appear normal. Heart size is normal. Bones and chest wall: No suspicious bony lesions. Overlying soft tissues appear unremarkable. IMPRESSION: Right chest wall Port-A-Cath tip is in SVC. Left-sided PICC line tip is in SVC. No acute cardiopulmonary pathology. Dictated by: Sridhar Garcia M.D. on 05/21/2021 at 15:33 Approved by: Sridhar Garcia M.D. on 05/21/2021 at 15:34
[2021-05-21 14:23] VITALS: BP 123/73; PULSE 90; RESP 16; TEMP 36.1; O2SAT 100
--- NOTE | 2021-05-21 14:24 | PM.OP.1 ---
Operative Date/Time/Diagnoses Date of procedure: 05/21/21 Time of procedure: 14:26 Pre-op diagnosis: Lung cancer Post-op diagnosis: same Procedure & Clinicians Procedure: Port-A-Cath Same procedure as scheduled: Yes Surgeon: Kavon Courtney Anesthesia Type: General Operative Notes Procedure in detail: The patient was brought to the operating room, placed on the table in the supine position with the arms tucked. Ancef was administered. Anesthesia was induced via LMA. A time-out was performed. The right chest and neck were prepped and draped in the usual fashion. An ultrasound was used to identify the right internal jugular vein. The vein was noted to be patent. An image was saved and printed and placed in the chart. The right internal jugular vein was accessed via the Seldinger technique under ultrasound guidance. The guidewire was inserted into the superior vena cava. C-arm was used to confirm proper position of the guidewire in the superior vena cava and no ectopy was noted. The needle was removed and the wire was clamped to the drape. Next, a port pocket was created just inferior to the medial clavicle using a 15 blade scalpel. Dissection was carried down to the pectoral fascia. A subcutaneous pocket was created using a combination of cautery and blunt dissection. Next, the port which was primed with injectable saline, was secured to the fascia with 3-0 PDS sutures left untied and clamped. The neck incision was extended with an 11 blade scalpel to approximately 5 mm. The dilator and peel-away sheath were inserted over the wire without resistance. The catheter was passed from the neck incision to the chest incision in the subcutaneous tissue using the tunnelling device. The wire and dilator were then removed and the catheter inserted through the peel-away sheath to deliver it into the superior vena cava. The depth of the device was checked using the C-arm and the tip of the device was noted to be in the distal superior vena cava. The exterior portion of the catheter was then trimmed and attached to the port using the strain relief collar. A final image showed good position of the catheter with no kinks. The port was then tucked into the subcutaneous pocket and the sutures were tied to secure the device. The port was then accessed using the Mclean needle and it was noted that the device jorge and flushed easily without resistance. Approximately 6 mL of heparinized saline were injected into the device. The skin incisions were closed with 3-0 Vicryl and 4-0 Monocryl. Steri-Strips were applied patient was awakened and brought to recovery room EBL: 5 mL Ultrasound: The right internal jugular vein was patent. The right carotid artery was visualized adjacent to the vein. Venipuncture was visualized in real-time using the ultrasound. Fluoroscopy: The device was positioned appropriately with the distal end of the catheter near the atriocaval junction. There were no kinks in the catheter. Post-operative Condition: stable Disposition: PACU
[2021-05-21 14:28] VITALS: BP 117/74; PULSE 85; RESP 18; O2SAT 100
[2021-05-21 14:30] VITALS: BP 107/60; PULSE 85; RESP 18; O2SAT 96
[2021-05-21 14:45] VITALS: BP 101/64; PULSE 82; RESP 18; TEMP 36.6; O2SAT 97
--- NOTE | 2021-05-21 14:56 | SUR.PHASEII ---
05/21/21-1430-Dr Courtney reports cxr looks good to patient . patient desires picc line removed. Dr Courtney to write order for removal. [id number]-report given in phase 2 to Zoe Hillman RN.
[2021-05-21 15:45] VITALS: BP 117/81; PULSE 80; RESP 16; TEMP 36.8; O2SAT 95
--- NOTE | 2021-05-21 16:18 | SUR.PHASEII ---
1530 - Pt placed flat. Valsalva maneuver performed by pt and left upper arm PICC removed. Tip intact. Site WNL. Pressure held for 5 min. Vaseline gauze applied, covered with Covrsite Plus (2x2 with cloth adhesive) ending with Rolled 2x2's covered with koban to create pressure dressing. Pt instructed to recline during car ride home to prevent air embolism. Instructed to call 911 with any SOB or chest pain.
== END 2021-05-21 15:48 | disposition home or self-care (01) ==
PROVIDERS: Family Provider Neurological Surgery; PCP Family Medicine; Referring Provider Surgery; Visit Provider Surgery
PROC: (CPT 36561; principal; 2021-05-21 13:15)
DX: C34.92 Malignant neoplasm of unspecified part of left bronchus or lung (principal); J45.909 Unspecified asthma, uncomplicated; I25.10 Atherosclerotic heart disease of native coronary artery without angina pectoris; Z79.01 Long term (current) use of anticoagulants
CPT/HCPCS: 36561; 71045; 76000; C1788; J0131; J1100; J1644; J2250; J2405; J2704

== ENCOUNTER 2021-06-18 16:54 | Emergency (ER) | payer MEDICARE, OTHER, SELFPAY ==
[2021-06-18] VITALS (28 sets, daily range): BP systolic 106–158; BP diastolic 55–94; PULSE 93–108; RESP 16–34; TEMP 37.3; O2SAT 91–98; BMI 18.8
--- NOTE | 2021-06-18 17:25 | DI.RAD.S_ITS ---
PROCEDURE: XR CHEST 1V INDICATIONS: short of breath TECHNIQUE: One view of the chest was acquired. COMPARISON: [facility], CR, XR CHEST 1V, 05/21/2021, 14:23. FINDINGS: Surgical changes and devices: A right chest Port-A-Cath is seen with catheter tip projecting over the superior cavoatrial junction. Probable coronary artery stents. Lungs and pleura: Lungs are clear. No pleural effusions or pneumothorax. Mediastinum: Mediastinal contours appear normal. Heart size is normal. Moderate aortic atherosclerotic calcifications. Bones and chest wall: No suspicious bony lesions. Overlying soft tissues appear unremarkable. IMPRESSION: No acute cardiopulmonary abnormality. Dictated by: Tony Rogers M.D. on 06/18/2021 at 18:08 Approved by: Tony Rogers M.D. on 06/18/2021 at 18:08
[2021-06-18] MEDS: ALBUTEROL/IPRATROPIUM 3 ML AMPUL INH ×2 (17:36→22:22)
[2021-06-18 17:48] LABS: Add Manual Diff / Slide Review NO; Basophils Absolute Auto 100 /uL (0-100); Basophils Percent Auto 0.5 % (0-2); Eosinophils Absolute Auto 600 /uL (0-450); Eosinophils Percent Auto 5.9 % (2-4); Hematocrit 29.2 % (36-46); Hemoglobin 9.3 g/dL (12.0-16.0); Lymphocytes Absolute Auto 1600 /uL (1100-4500); Lymphocytes Percent Auto 15.1 % (25-40); Mean Corpuscular Hemoglobin 26.3 PG (26-34); Mean Corpuscular Volume 82.2 fL (80-100); Monocytes Absolute Auto 1400 /uL (0-900); Monocytes Percent Auto 12.7 % (3-14); Neutrophils Absolute Auto 7100 /uL (1500-7000); Neutrophils Percent Auto 65.8 % (50-75); Platelet Count 486 X10^3/uL (150-400); Red Blood Cell Count 3.55 X10^6/uL (4.0-5.2); White Blood Cell Count 10.8 X10^3/uL (4.5-11.0)
[2021-06-18 17:50] LABS: INR 1.3 (0.9-1.3)
[2021-06-18 17:52] LABS: Lactate (Lactic Acid) 1.2 mmol/L (0.7-2.1); PTT Partial Thromboplastin Tim 38 SECONDS (26.4-36.2)
[2021-06-18 17:56] LABS: Alanine Aminotransferase 20 IU/L (<35); Albumin 4.2 g/dL (3.5-5.0); Albumin Globulin Ratio 1.4 (1.0-2.8); Alkaline Phosphatase 68 U/L (38-126); Aspartate Aminotransferase 25 IU/L (14-36); BUN Creatinine Ratio 31.3 (6-22); Bilirubin Total 0.4 mg/dL (0.2-1.3); Blood Urea Nitrogen 15 mg/dL (7-17); Calcium 9.1 mg/dL (8.4-10.2); Carbon Dioxide 24 mmol/L (22-32); Chloride 104 mmol/L (98-107); Creatine Kinase 41 U/L (30-135); Estimated Glomerular Filt Rate > 60.0 mL/min (>60); Globulin 3.1 g/dL (1.7-4.1); Glucose 98 mg/dL (80-110); HEMOLYSIS < 15 (0-50); Magnesium 1.5 mg/dL (1.6-2.3); Potassium 3.8 mmol/L (3.4-5.1); Sodium 137 mmol/L (137-145); Total Protein 7.3 g/dL (6.3-8.2)
[2021-06-18 18:03] LABS: NT-proBNP (BNP-Adult 18+) 284 pg/mL (<125)
[2021-06-18 18:07] LABS: Troponin I < 0.012 ng/mL (0.01-0.034)
[2021-06-18] MEDS: methylPREDNISolone 125 MG/2 ML VIAL IV ×2 (18:21→21:52)
[2021-06-18 18:49] LABS: COVID19 -Nasal RAPID Negative (Negative)
[2021-06-18 20:04] LABS: Bacteria Urine None Seen; Culture Indicated Urine Cult Not Indicated; Mucus Urine 1+ (Negative); RBC Urine 5-10/HPF (0-5/HPF); Squamous Epithelial Cell Urine 0-1 /HPF (0-5/HPF); WBC Urine 1-5/HPF (0-5/HPF)
--- NOTE | 2021-06-18 20:07 | ED_ITS ---
HPI - General Adult General Chief complaint: Shortness of Breath/Dyspnea Stated complaint: chest pain, short of breath Time Seen by Provider: 06/18/21 17:17 History of Present Illness HPI narrative: 71-year-old woman with recently diagnosed left upper lobe lung cancer currently followed by Dr. Vargas(incidental finding with NSTEMI admit she had port placement on May 21). She just finished her 3rd immunotherapy treatment for her lung cancer and finds that over the last 24 hours she is significantly increasingly short of breath. She notes that she is chronically short of breath but typically is able to at least get about her activities of daily living. Today she finds that simple exertion causes her significant dyspnea. She reports no fevers no change to her cough no new productive cough she is not having lower extremity edema or orthopnea. She complains of no abdominal pain vomiting or diarrhea. She has not had any black stool or obvious blood loss. Related Data Home Medications Medication Instructions Recorded Confirmed atorvastatin 80 mg tablet 80 mg PO DAILY 01/29/19 06/11/21 calcium and vitamin d 600 mg PO BID 01/29/19 06/11/21 fluticasone 100 mcg-salmeterol 50 1 puff INHALATION BID 01/29/19 06/11/21 mcg/dose blistr powdr for inhalation (Advair Diskus) folic acid 1 mg PO DAILY 01/29/19 06/11/21 mecobalamin (vitamin B12) 1,000 1,000 mcg SL DAILY 01/29/19 06/11/21 mcg disintegrating tablet,sublingual albuterol sulfate 90 mcg/actuation 2 inhalation INHALATION Q6H PRN 08/22/19 06/11/21 breath activated powder inhaler isosorbide dinitrate 20 mg tablet 30 mg PO BID 12/01/20 06/11/21 metoprolol tartrate 25 mg tablet 50 mg PO BID 12/01/20 06/11/21 albuterol sulfate 2.5 mg INHALATION QID PRN 05/20/21 06/11/21 apixaban 5 mg tablet (Eliquis) 5 mg PO BID 05/20/21 06/11/21 clopidogrel 75 mg tablet 75 mg PO DAILY 05/20/21 06/11/21 nitroglycerin 0.4 mg sublingual 0.4 mg SUBLINGUAL Q5M PRN 05/20/21 06/11/21 tablet (Nitrostat) ondansetron 8 mg disintegrating 8 mg PO Q8H PRN 05/20/21 06/11/21 tablet pantoprazole 40 mg tablet,delayed 40 mg PO DAILY 05/20/21 06/11/21 release (Protonix) fluticasone propionate 230 230 inh INHALATION DAILY 05/21/21 06/11/21 mcg-salmeterol 21 mcg/actuation HFA inhaler (Advair HFA) Previous Rx's Medication Instructions Recorded hydrocodone 5 mg-acetaminophen 325 1 tab PO Q8H PRN #7 tab 05/21/21 mg tablet azithromycin 250 mg tablet 250 mg PO DAILY 5 Days tab 06/18/21 azithromycin 250 mg tablet 250 mg PO DAILY 6 Days tab 06/18/21 prednisone 20 mg tablet 20 mg PO DAILY #5 tab 06/18/21 prednisone 20 mg tablet 20 mg PO DAILY #5 tab 06/18/21 Allergies Allergy/AdvReac Type Severity Reaction Status Date / Time No Known Drug Allergies Allergy Verified 06/23/20 13:40 Review of Systems Review of Systems Narrative: Remainder of complete review of systems is otherwise unremarkable except for that included in the HPI. Patient History Medical History (Updated 06/18/21 @ 23:19 by Bianca Michaud MD) Adenocarcinoma of left lung Afib Anemia Arthritis Juarez's esophagus CAD (coronary artery disease) Cervical cancer (1981) COPD (chronic obstructive pulmonary disease) Facet arthropathy, lumbar Herniated nucleus pulposus, L5-S1 HLD (hyperlipidemia) HTN (hypertension) Lumbosacral spondylosis with radiculopathy Peripheral artery disease Stomach ulcer Surgical History H/O: hysterectomy History of cardiac radiofrequency ablation History of surgical procedure (02/2021) Hx of heart artery stent (01/29/21) Hx of laminectomy (2001) Hx of laminectomy (2020) S/P appendectomy Family History Father Cancer Mother Eosinophilic pneumonia Social History marital status: number of children: 2 household members: spouse lives independently: Yes Smoking Status: Former smoker alcohol intake: never substance use type: does not use Smoking Status: Former smoker alcohol intake frequency: holidays/special occasions only Substance Use Type: does not use Exam Initial Vital Signs Initial Vital Signs: Vital Signs Pulse Rate 106 H 06/18/21 17:17 Respiratory Rate 23 06/18/21 17:17 Pulse Oximetry 97 06/18/21 17:17 General: Alert and appropriate, able to speak in full sentences with no respiratory distress at rest. Quite thin to the point of cachexia HEENT: Moist mucous membranes, normal sclera with reactive pupils, Neck: No JVD, supple Respiratory: Lungs with significant wheeze and poor air movement throughout Cardiac: Regular rate and rhythm no murmurs no bruits Abdomen: Soft, nontender, good bowel tones, no flank pain Skin: Warm and dry, no rashes Neurologic: Grossly neurologically intact with no obvious asymmetries or ab normalities Extremities: No trauma, well perfused Psych: Cooperative, appropriate insight and affect When asked to walk around the bed within 25 ft she was dramatically dyspneic, pale and unsteady. Vital signs remained stable with slight increase in heart rate to 117 and oxygen saturations on room air remaining in the 97 and 98% range. Course Orders Ordered: Discontinued Medications Albuterol/Ipratropium (Albuterol/Ipratropium 3 Ml Ampul) 3 ml INH NOW ONE Stop: 06/18/21 17:23 Last Admin: 06/18/21 17:36 Dose: 3 ml Documented by: BETSY Albuterol/Ipratropium (Albuterol/Ipratropium 3 Ml Ampul) 3 ml INH NOW ONE Stop: 06/18/21 21:40 Last Admin: 06/18/21 22:22 Dose: 3 ml Documented by: STAR Apixaban (Apixaban 5 Mg Tablet) 5 mg PO NOW ONE Stop: 06/18/21 21:52 Last Admin: 06/18/21 22:01 Dose: 5 mg Documented by: ROMY Magnesium Sulfate (Magnesium Sulfate) 2 gm in 50 mls @ 150 mls/hr IV NOW ONE Stop: 06/18/21 21:58 Last Infusion: 06/18/21 22:21 Dose: 0 mls/hr Documented by: ROMY Cosigned by: GOVIND Admin: 06/18/21 21:53 Dose: 150 mls/hr Documented by: ROMY Cosigned by: DAVION Azithromycin 500 mg/ Dextrose 250 mls @ 250 mls/hr IV NOW ONE Stop: 06/18/21 21:42 Last Infusion: 06/19/21 00:00 Dose: 0 mls/hr Documented by: Admin: 06/18/21 22:24 Dose: 250 mls/hr Documented by: ROMY Methylprednisolone (Methylprednisolone 125 Mg/2 Ml Vial) 125 mg IV NOW ONE Stop: 06/18/21 17:23 Last Admin: 06/18/21 18:21 Dose: 125 mg Documented by: MOHAMUD Methylprednisolone (Methylprednisolone 125 Mg/2 Ml Vial) 125 mg IV NOW ONE Stop: 06/18/21 21:40 Last Admin: 06/18/21 21:52 Dose: 125 mg Documented by: ROMY Ondansetron HCl (Ondansetron 4 Mg/2 Ml Inj) 4 mg IV NOW ONE Stop: 06/18/21 23:03 Last Admin: 06/18/21 23:09 Dose: 4 mg Documented by: ROMY Vital Signs Vital signs: Vital Signs - 8 hr 06/18/21 23:20 06/18/21 23:30 06/18/21 23:40 Pulse Rate 101 H 107 H 104 H Respiratory Rate 26 H 34 H 32 H Blood Pressure 133/76 107/56 L Pulse Oximetry 94 95 95 Medical Decision Making Lab Data Lab results narrative: Normal white Stable normocytic anemia Chemistries are unremarkable with a mildly elevated proBNP Urine dip with minor asymptomatic red blood cells no evidence of urinary tract infection Result diagrams: 06/18/21 17:20 06/18/21 17:20 Labs: Lab Results 06/18/21 06/18/21 06/18/21 Range/Units 17:20 17:20 17:20 WBC 10.8 (4.5-11.0) X10^3/uL RBC 3.55 L (4.0-5.2) X10^6/uL Hgb 9.3 L (12.0-16.0) g/dL Hct 29.2 L (36-46) % MCV 82.2 (80-100) fL MCH 26.3 (26-34) PG MCHC 32.0 (30-36) % RDW 19.0 H (11.6-14.8) % Plt Count 486 H (150-400) X10^3/uL Neut % (Auto) 65.8 (50-75) % Lymph % (Auto) 15.1 L (25-40) % [place] % (Auto) 12.7 (3-14) % Eos % (Auto) 5.9 H (2-4) % Baso % (Auto) 0.5 (0-2) % Neut # (Auto) 7100 H (7336-0289) /uL Lymph # (Auto) 1600 (7010-7344) /uL [place] # (Auto) 1400 H (0-900) /uL Eos # (Auto) 600 H (0-450) /uL Baso # (Auto) 100 (0-100) /uL PT 15.0 H (10.1-12.7) SECONDS INR 1.3 (0.9-1.3) APTT 38 H (26.4-36.2) SECONDS D-Dimer (<230) ng/mL Sodium (137-145) mmol/L Potassium (3.4-5.1) mmol/L Chloride (98-107) mmol/L Carbon Dioxide (22-32) mmol/L BUN (7-17) mg/dL Creatinine (0.52-1.04) mg/dL Estimated GFR (>60) mL/min BUN/Creatinine Ratio (6-22) Glucose (80-110) mg/dL Lactate (0.7-2.1) mmol/L Calcium (8.4-10.2) mg/dL Magnesium (1.6-2.3) mg/dL Total Bilirubin (0.2-1.3) mg/dL AST (14-36) IU/L ALT (<35) IU/L Alkaline Phosphatase (38-126) U/L Total Creatine Kinase (30-135) U/L CK-MB (CK-2) CK-MB (CK-2) Rel Index Troponin I (0.01-0.034) ng/mL NT-Pro-B Natriuret Pep 284 H (<125) pg/mL Total Protein (6.3-8.2) g/dL Albumin (3.5-5.0) g/dL Globulin (1.7-4.1) g/dL Albumin/Globulin Ratio (1.0-2.8) Urine RBC (0-5/HPF) Urine WBC (0-5/HPF) Ur Squamous Epith Cells (0-5/HPF) Urine Bacteria (None) Urine Mucus (Negative) Ur Culture Indicated? SARS-CoV-2 (PCR) (Negative) 06/18/21 06/18/21 06/18/21 Range/Units 17:20 17:20 17:20 WBC (4.5-11.0) X10^3/uL RBC (4.0-5.2) X10^6/uL Hgb (12.0-16.0) g/dL Hct (36-46) % MCV (80-100) fL MCH (26-34) PG MCHC (30-36) % RDW (11.6-14.8) % Plt Count (150-400) X10^3/uL Neut % (Auto) (50-75) % Lymph % (Auto) (25-40) % [place] % (Auto) (3-14) % Eos % (Auto) (2-4) % Baso % (Auto) (0-2) % Neut # (Auto) (1827-5250) /uL Lymph # (Auto) (3245-1216) /uL [place] # (Auto) (0-900) /uL Eos # (Auto) (0-450) /uL Baso # (Auto) (0-100) /uL PT (10.1-12.7) SECONDS INR (0.9-1.3) APTT (26.4-36.2) SECONDS D-Dimer < 200 (<230) ng/mL Sodium 137 (137-145) mmol/L Potassium 3.8 (3.4-5.1) mmol/L Chloride 104 (98-107) mmol/L Carbon Dioxide 24 (22-32) mmol/L BUN 15 (7-17) mg/dL Creatinine 0.48 L (0.52-1.04) mg/dL Estimated GFR > 60.0 (>60) mL/min BUN/Creatinine Ratio 31.3 H (6-22) Glucose 98 (80-110) mg/dL Lactate 1.2 (0.7-2.1) mmol/L Calcium 9.1 (8.4-10.2) mg/dL Magnesium 1.5 L (1.6-2.3) mg/dL Total Bilirubin 0.4 (0.2-1.3) mg/dL AST 25 (14-36) IU/L ALT 20 (<35) IU/L Alkaline Phosphatase 68 (38-126) U/L Total Creatine Kinase 41 (30-135) U/L CK-MB (CK-2) TNP CK-MB (CK-2) Rel Index TNP Troponin I < 0.012 (0.01-0.034) ng/mL NT-Pro-B Natriuret Pep (<125) pg/mL Total Protein 7.3 (6.3-8.2) g/dL Albumin 4.2 (3.5-5.0) g/dL Globulin 3.1 (1.7-4.1) g/dL Albumin/Globulin Ratio 1.4 (1.0-2.8) Urine RBC (0-5/HPF) Urine WBC (0-5/HPF) Ur Squamous Epith Cells (0-5/HPF) Urine Bacteria (None) Urine Mucus (Negative) Ur Culture Indicated? SARS-CoV-2 (PCR) (Negative) 06/18/21 06/18/21 06/18/21 Range/Units 18:28 19:40 21:20 WBC (4.5-11.0) X10^3/uL RBC (4.0-5.2) X10^6/uL Hgb (12.0-16.0) g/dL Hct (36-46) % MCV (80-100) fL MCH (26-34) PG MCHC (30-36) % RDW (11.6-14.8) % Plt Count (150-400) X10^3/uL Neut % (Auto) (50-75) % Lymph % (Auto) (25-40) % [place] % (Auto) (3-14) % Eos % (Auto) (2-4) % Baso % (Auto) (0-2) % Neut # (Auto) (8653-6554) /uL Lymph # (Auto) (6679-8751) /uL [place] # (Auto) (0-900) /uL Eos # (Auto) (0-450) /uL Baso # (Auto) (0-100) /uL PT (10.1-12.7) SECONDS INR (0.9-1.3) APTT (26.4-36.2) SECONDS D-Dimer (<230) ng/mL Sodium (137-145) mmol/L Potassium (3.4-5.1) mmol/L Chloride (98-107) mmol/L Carbon Dioxide (22-32) mmol/L BUN (7-17) mg/dL Creatinine (0.52-1.04) mg/dL Estimated GFR (>60) mL/min BUN/Creatinine Ratio (6-22) Glucose (80-110) mg/dL Lactate (0.7-2.1) mmol/L Calcium (8.4-10.2) mg/dL Magnesium (1.6-2.3) mg/dL Total Bilirubin (0.2-1.3) mg/dL AST (14-36) IU/L ALT (<35) IU/L Alkaline Phosphatase (38-126) U/L Total Creatine Kinase (30-135) U/L CK-MB (CK-2) CK-MB (CK-2) Rel Index Troponin I < 0.012 (0.01-0.034) ng/mL NT-Pro-B Natriuret Pep (<125) pg/mL Total Protein (6.3-8.2) g/dL Albumin (3.5-5.0) g/dL Globulin (1.7-4.1) g/dL Albumin/Globulin Ratio (1.0-2.8) Urine RBC 5-10/hpf H (0-5/HPF) Urine WBC 1-5/hpf (0-5/HPF) Ur Squamous Epith Cells 0-1 /hpf (0-5/HPF) Urine Bacteria None seen (None) Urine Mucus 1+ H (Negative) Ur Culture Indicated? Cult not indicated SARS-CoV-2 (PCR) Negative (Negative) Urine Dip Bedside Urine Glucose Negative Bedside Urine Bilirubin - Negative Bedside Urine Ketone - Negative Urine Specific [place] 1.030 Bedside Urine Occult Blood + Bedside Urine pH 6 Bedside Urine Protein - Negative Bedside Urine Urobilinogen - Negative Bedside Urine Nitrite - Negative Bedside Urine Leukocytes - Negative Esterase Point of care testing: Urine Dip Bedside Urine Glucose Negative Bedside Urine Bilirubin - Negative Bedside Urine Ketone - Negative Urine Specific [place] 1.030 Bedside Urine Occult Blood + Bedside Urine pH 6 Bedside Urine Protein - Negative Bedside Urine Urobilinogen - Negative Bedside Urine Nitrite - Negative Bedside Urine Leukocytes - Negative Esterase Imaging Data Chest x-ray: Radiologist's Impression: FINDINGS:? ? Surgical changes and devices:? A right chest Port-A-Cath is seen with catheter tip projecting over the superior cavoatrial junction.? Probable coronary artery stents. ? Lungs and pleura:? Lungs are clear.? No pleural effusions or pneumothorax.? ? Mediastinum:? Mediastinal contours appear normal.? Heart size is normal.? Moderate aortic atherosclerotic calcifications. ? Bones and chest wall:? No suspicious bony lesions.? Overlying soft tissues appear unremarkable.? ? IMPRESSION:? No acute cardiopulmonary abnormality. ? ? Dictated by: Tony Rogers M.D. on 06/18/2021 at 18:08? ?? ECG Data Interpretation: Sinus rhythm at a rate of [address] T wave changes Normal interval, normal axis MDM Narrative Medical decision making narrative: 71-year-old woman presents with worsening exertional dyspnea and maintained oxygen saturations. At this point I am finding no evidence of acute pneumonia, pulmonary embolism, pneumothorax, expanding worsening left upper lobe lung cancer, acute coronary syndrome or other life-threatening etiology at this point. She has responded nicely to a L of fluid, 2 g of IV magnesium, 125 mg of Solu-Medrol and she is also given 500 mg of IV azithromycin given her immunocompromised status receiving chemotherapy and chronic bronchitis. She novak s have nebulizer available at home and did recently get refills. At this time I think the majority of this is an acute COPD exacerbation I am exacerbated by the recent lung radiation, immunotherapy baseline lung cancer but turned around nicely with treatments in the emergency department and likely will benefit from an additional steroid course and complete course of azithromycin. She will continue to use her inhalers and she has close follow-up with all of her cancer and primary care physicians. She is alert and appropriate, agrees with home discharge, questions are answered and she will be safe for home discharge Discharge Plan Departure Patient Disposition: Home Clinical Impression: Exertional dyspnea, Acute exacerbation of chronic obstructive pulmonary disease Lung cancer Qualifiers: Laterality: left Lung location: upper lobe of lung Qualified Code(s): C34.12 - Malignant neoplasm of upper lobe, left bronchus or lung Instructions: DI for Chronic Obstructive Pulmonary Disease Activity Restrictions/Additional Instructions: Thank you for coming in today Fortunately, I did not find any life-threatening explanation for your exertional dyspnea. Specifically, you do not have a blood clot, collapsed lung, obviously worsened lung cancer, acute heart attack or heart attack like syndrome or an obvious bacterial pneumonia. I think that you are absolutely correct in thinking that the recent radiation, pollens, current immunotherapy are all exacerbating your underlying COPD. You improved nicely with the IV magnesium, IV steroids and fluids given in the emergency department. I am going to ask you to continue 5 days of prednisone, 5 days of azithromycin and to use your albuterol nebulized solution every 4 hours as needed for coughing wheezing or simply feeling short of breath. If you find that you are getting worse, developed any fevers, chest pain, the dyspnea worsens or you have new symptoms please return to the ER and I am happy to re-evaluate Prescriptions: New prednisone 20 mg tablet 20 mg PO DAILY Qty: 5 0RF azithromycin 250 mg tablet 250 mg PO DAILY 6 Days 0RF Rx Instructions: start on day 2 of therapy prednisone 20 mg tablet 20 mg PO DAILY Qty: 5 0RF azithromycin 250 mg tablet 250 mg PO DAILY 5 Days 0RF No Action isosorbide dinitrate 20 mg Tablet 30 mg PO BID 0RF metoprolol tartrate 25 mg Tablet 50 mg PO BID 0RF Label Comments: PT UNSURE OF DOSE albuterol sulfate 2.5 mg /3 mL (0.083 %) Solution For Nebulization 2.5 mg INHALATION QID PRN (Reason: Wheezing) 0RF clopidogrel 75 mg Tablet 75 mg PO DAILY 0RF ondansetron 8 mg Tablet,Disintegrating 8 mg PO Q8H PRN (Reason: Nausea, vomiting) 0RF nitroglycerin [Nitrostat] 0.4 mg Tablet, Sublingual 0.4 mg SUBLINGUAL Q5M PRN (Reason: Chest Pain) 0RF Rx Instructions: do not exceed 3 doses per episode Eliquis 5 mg Tablet 5 mg PO BID 0RF pantoprazole [Protonix] 40 mg Tablet,Delayed Release (Dr/Ec) 40 mg PO DAILY 0RF Advair HFA 230-21 mcg/actuation HFA aerosol inhaler 230 inh INHALATION DAILY 0RF hydrocodone-acetaminophen 5-325 mg tablet 1 tab PO Q8H PRN (Reason: pain) Qty: 7 0RF atorvastatin 80 mg tablet 80 mg PO DAILY 0RF fluticasone propion-salmeterol [Advair Diskus] 100-50 mcg/dose blister with device 1 puff INHALATION BID 0RF folic acid 1 mg PO DAILY 0RF calcium and vitamin d 600 mg PO BID 0RF mecobalamin (vitamin B12) 1,000 mcg tablet,disintegrating 1,000 mcg SL DAILY 0RF albuterol sulfate 90 mcg/actuation aerosol powdr breath activated 2 inhalation INHALATION Q6H PRN (Reason: Adequate Ventilation) 0RF Referrals: Elizabeth Cartagena MD [Primary Care Provider] -
[2021-06-18 21:53] LABS: Troponin I < 0.012 ng/mL (0.01-0.034)
[2021-06-18] MEDS: MAGNESIUM SULFATE 2 GM/50 ML PIGGYBACK IV (21:53)
[2021-06-18] MEDS: APIXABAN 5 MG TABLET PO (22:01)
[2021-06-18 22:07] LABS: D Dimer < 200 ng/mL (<230)
[2021-06-18] MEDS: AZITHROMYCIN 500 MG in DEXTROSE 5% IN WATER 250 ML IV (22:24)
[2021-06-18] MEDS: ONDANSETRON 4 MG/2 ML INJ IV (23:09)
== END 2021-06-19 00:11 | disposition home or self-care (01) ==
PROVIDERS: Emergency Medicine; Emergency Provider Emergency Medicine; Family Provider Neurological Surgery; PCP Family Medicine
DX: J44.1 Chronic obstructive pulmonary disease with (acute) exacerbation (principal); C34.92 Malignant neoplasm of unspecified part of left bronchus or lung; Z87.891 Personal history of nicotine dependence; Z92.21 Personal history of antineoplastic chemotherapy; Z20.822 Contact with and (suspected) exposure to COVID-19
CPT/HCPCS: 36415; 71045; 80053; 81003; 81015; 82550; 83605; 83735; 83880; 84484; 85025; 85379; 85610; 85730; 87040; 87635; 93005; 93010; 94640; 96365; 96366; 96367; 96375; 96376; 99284; C9803; J2405; J2930; J3475

== ENCOUNTER 2021-07-19 08:46 | Emergency (ER) | payer MEDICARE, OTHER, SELFPAY ==
[2021-07-19] VITALS (13 sets, daily range): BP systolic 129–194; BP diastolic 70–114; PULSE 73–89; RESP 18–31; TEMP 36.7; O2SAT 92–98; BMI 20.8
--- NOTE | 2021-07-19 08:54 | DI.RAD.S_ITS ---
PROCEDURE: XR CHEST 2V INDICATIONS: SOB, fatigue, cough TECHNIQUE: 2 views of the chest were acquired. COMPARISON: [facility], CR, XR CHEST 1V, 06/18/2021, 17:54. [facility], CR, XR CHEST 2V, 06/19/2018, 12:20. FINDINGS: Surgical changes and devices: There is a Port-A-Cath on the right with the tip projecting to the area of atrial caval junction. Lungs and pleura: Lungs are hyperinflated consistent with COPD. Possible small pleural effusions. No pneumothorax. No acute pulmonary opacities. Prominent pulmonary interstitium. Mediastinum: Mediastinal contours are normal. Heart size is normal. Bones and chest wall: No suspicious bony abnormalities. Soft tissues appear unremarkable. IMPRESSION: 1. COPD. 2. Small pleural effusions bilaterally. 3. Prominent pulmonary interstitium. No acute infiltrate or consolidation. Dictated by: Sahil Gonzalez M.D. on 07/19/2021 at 9:25 Approved by: Sahil Gonzalez M.D. on 07/19/2021 at 9:27
--- NOTE | 2021-07-19 09:16 | ED_ITS ---
HPI - SOB/Dyspnea General Chief Complaint: Shortness of Breath/Dyspnea Stated Complaint: SOB, Chest pain, rapid hr Time Seen by Provider: 07/19/21 08:50 Source: patient Mode of arrival: Family Vehicle Limitations: no limitations History of Present Illness HPI Narrative: 71-year-old female former smoker with history adenocarcinoma of the lung status post radiation and chemotherapy and currently immunotherapy presents with her in the chief complaint of increasing shortness of breath and fatigue over the course of the week. She states minimal exertion makes her profoundly short of breath and she has noted her heart rate frequently increases with minimal exertion but will return to normal at baseline. She noticed her pulse ox at home as been dipping into the upper 80s, she does not use home oxygen and routinely is in the mid to upper 90s. She denies runny nose or sore throat. She frequently has cough but there is perhaps some sputum production currently. She denies fever or chills nor nausea, vomiting or diarrhea. Had no dark and tarry stools or evidence of bleeding but she does take anticoagulation due to her history of atrial fibrillation. She is chronically anemic and receives iron transfusions and is scheduled to receive another round tomorrow. Related Data Home Medications Medication Instructions Recorded Confirmed atorvastatin 80 mg tablet 80 mg PO DAILY 01/29/19 07/09/21 calcium and vitamin d 600 mg PO BID 01/29/19 07/09/21 fluticasone 100 mcg-salmeterol 50 1 puff INHALATION BID 01/29/19 07/09/21 mcg/dose blistr powdr for inhalation (Advair Diskus) folic acid 1 mg PO DAILY 01/29/19 07/09/21 mecobalamin (vitamin B12) 1,000 1,000 mcg SL DAILY 01/29/19 07/09/21 mcg disintegrating tablet,sublingual albuterol sulfate 90 mcg/actuation 2 inhalation INHALATION Q6H PRN 08/22/19 07/09/21 breath activated powder inhaler metoprolol tartrate 25 mg tablet 50 mg PO DAILY 12/01/20 07/09/21 albuterol sulfate 2.5 mg INHALATION QID PRN 05/20/21 07/09/21 apixaban 5 mg tablet (Eliquis) 5 mg PO BID 05/20/21 07/09/21 clopidogrel 75 mg tablet 75 mg PO DAILY 05/20/21 07/09/21 nitroglycerin 0.4 mg sublingual 0.4 mg SUBLINGUAL Q5M PRN 05/20/21 07/09/21 tablet (Nitrostat) ondansetron 8 mg disintegrating 8 mg PO Q8H PRN 05/20/21 07/09/21 tablet pantoprazole 40 mg tablet,delayed 40 mg PO DAILY 05/20/21 07/09/21 release (Protonix) fluticasone propionate 230 230 inh INHALATION DAILY 05/21/21 07/09/21 mcg-salmeterol 21 mcg/actuation HFA inhaler (Advair HFA) Previous Rx's Medication Instructions Recorded prednisone 10 mg tablet See Rx Instructions .ROUTE 07/19/21 .COMPLEX #30 tab Allergies Allergy/AdvReac Type Severity Reaction Status Date / Time No Known Drug Allergies Allergy Verified 06/23/20 13:40 Review of Systems Review of Systems Narrative: GENERAL: Denies chills, fatigue, malaise, fever, sweats. HEENT: Denies sinus pain, ear pain, sore throat, difficulty swallowing, dizziness. RESPIRATORY: See HPI CARDIOVASCULAR: See HPI GASTROINTESTINAL: Denies nausea, vomiting, abdominal pain, diarrhea, constipation, melena. : Denies dysuria, frequency, incontinence, hematuria, urinary retention. MUSCULOSKELETAL: denies weakness, joint pain, or bony pain SKIN: Denies rash, skin lesions, or other NEUROLOGIC: Denies weakness, headache, numbness, change in speech, confusion, seizures, incoordination. PSYCHIATRIC: No concerning psychosocial issues. 12 point review of systems is negative except for those stated above Patient History Medical History Adenocarcinoma of left lung Afib Anemia Arthritis Juarez's esophagus CAD (coronary artery disease) Cervical cancer (1981) COPD (chronic obstructive pulmonary disease) Facet arthropathy, lumbar Herniated nucleus pulposus, L5-S1 HLD (hyperlipidemia) HTN (hypertension) Lumbosacral spondylosis with radiculopathy Peripheral artery disease Stomach ulcer Surgical History H/O: hysterectomy History of cardiac radiofrequency ablation History of surgical procedure (02/2021) Hx of heart artery stent (01/29/21) Hx of laminectomy (2001) Hx of laminectomy (2020) S/P appendectomy Family History Father Cancer Mother Eosinophilic pneumonia Social History marital status: number of children: 2 household members: spouse lives independently: Yes Smoking Status: Former smoker alcohol intake: never substance use type: does not use Smoking Status: Former smoker alcohol intake frequency: holidays/special occasions only Substance Use Type: does not use Exam Narrative Exam Narrative: GENERAL: [71 year old patient appears stated age. Thin and chronically ill, becomes tachypneic with exertion but resolved relatively quickly upon sitting HEAD: Atraumatic. Normocephalic. EYES: Pupils equal round and reactive. Extraocular motions intact. No scleral icterus. No injection or drainage. No conjunctival pallor ENT: Nose without bleeding, purulent drainage. Throat without erythema, tonsillar hypertrophy or exudate. Airway patent. NECK: Trachea midline. Non tender CARDIOVASCULAR: Regular rate and rhythm without murmurs, gallops, or rubs. RESPIRATORY: Decreased breath sounds throughout with prolonged expiratory phase. No obvious wheezing, rales or rhonchi GASTROINTESTINAL: Abdomen soft, non-tender, nondistended. EXTREMITIES: No edema or joint tenderness. BACK: Nontender without deformity or crepitance. No flank tenderness. NEURO: AOx3. SKIN: No rash or erythema of visible areas Initial Vital Signs Initial Vital Signs: Vital Signs Pulse Rate 89 07/19/21 08:52 Pulse Oximetry 96 07/19/21 08:52 Course Orders Ordered: ED Orders 07/19/21 08:53 Consult to Respiratory Therapy Evaluate & Treat EKG-12 Lead Stat 07/19/21 08:54 XR chest 2V Stat 07/19/21 09:24 COVID19 -Nasal RAPID/Pre-Proc Stat 07/19/21 09:37 Complete Blood Count AUTO DIFF Stat Comprehensive Metabolic Panel Stat Lactate (Lactic Acid) Stat Magnesium Stat NT-proBNP (BNP-Adult 18+) Stat Procalcitonin Stat Troponin & CK Cardiac Panel Stat 07/19/21 09:54 Blood Culture Stat 07/19/21 09:58 Consult to Respiratory Therapy Evaluate & Treat Sodium Chloride (Normal Saline 0.9%) 1,000 mls @ 150 mls/hr IV CONT DARYL Last Admin: 07/19/21 09:23 Dose: 150 mls/hr Documented by: HERON Discontinued Medications Albuterol/Ipratropium (Albuterol/Ipratropium 3 Ml Ampul) 3 ml INH NOW ONE Stop: 07/19/21 09:59 Last Admin: 07/19/21 10:02 Dose: 3 ml Documented by: DAVION Methylprednisolone (Methylprednisolone 125 Mg/2 Ml Vial) 125 mg IV NOW ONE Stop: 07/19/21 08:54 Last Admin: 07/19/21 09:23 Dose: 125 mg Documented by: HERON Reevaluation(s) Reevaluation #1: Patient has significant improvement after above-stated therapies. Vital Signs Vital signs: Vital Signs - 8 hr 07/19/21 08:52 07/19/21 08:53 07/19/21 08:57 Temperature 98.1 F Pulse Rate 89 78 81 Respiratory Rate 18 Blood Pressure 164/85 H 194/103 H Pulse Oximetry 96 98 98 07/19/21 08:58 07/19/21 09:00 07/19/21 09:15 Temperature Pulse Rate 79 76 80 Respiratory Rate Blood Pressure 164/85 H 161/85 H 160/104 H Pulse Oximetry 98 98 98 07/19/21 09:30 07/19/21 09:53 07/19/21 09:55 Temperature Pulse Rate 73 76 78 Respiratory Rate 31 H Blood Pressure 144/84 H 148/112 H 187/114 H Pulse Oximetry 97 98 98 07/19/21 10:00 Temperature Pulse Rate 75 Respiratory Rate 20 Blood Pressure 162/77 H Pulse Oximetry 97 MDM - SOB/Dyspnea Lab Data Result diagrams: 07/19/21 09:37 07/19/21 09:37 Labs: Lab Results 07/19/21 07/19/21 07/19/21 Range/Units 09:24 09:37 09:37 WBC 5.2 (4.5-11.0) X10^3/uL RBC 3.90 L (4.0-5.2) X10^6/uL Hgb 11.0 L (12.0-16.0) g/dL Hct 33.7 L (36-46) % MCV 86.4 (80-100) fL MCH 28.1 (26-34) PG MCHC 32.6 (30-36) % RDW 24.1 H (11.6-14.8) % Plt Count 353 (150-400) X10^3/uL Neut % (Auto) 64.5 (50-75) % Lymph % (Auto) 12.6 L (25-40) % [place] % (Auto) 10.3 (3-14) % Eos % (Auto) 9.7 H (2-4) % Baso % (Auto) 2.9 H (0-2) % Neut # (Auto) 3400 (3077-9530) /uL Lymph # (Auto) 700 L (8034-6444) /uL [place] # (Auto) 500 (0-900) /uL Eos # (Auto) 500 H (0-450) /uL Baso # (Auto) 200 H (0-100) /uL Sodium (137-145) mmol/L Potassium (3.4-5.1) mmol/L Chloride (98-107) mmol/L Carbon Dioxide (22-32) mmol/L BUN (7-17) mg/dL Creatinine (0.52-1.04) mg/dL Estimated GFR (>60) mL/min BUN/Creatinine Ratio (6-22) Glucose (80-110) mg/dL Lactate (0.7-2.1) mmol/L Calcium (8.4-10.2) mg/dL Magnesium 1.7 (1.6-2.3) mg/dL Total Bilirubin (0.2-1.3) mg/dL AST (14-36) IU/L ALT (<35) IU/L Alkaline Phosphatase (38-126) U/L Total Creatine Kinase 31 (30-135) U/L CK-MB (CK-2) TNP CK-MB (CK-2) Rel Index TNP Troponin I < 0.012 (0.01-0.034) ng/mL NT-Pro-B Natriuret Pep 178 H (<125) pg/mL Total Protein (6.3-8.2) g/dL Albumin (3.5-5.0) g/dL Globulin (1.7-4.1) g/dL Albumin/Globulin Ratio (1.0-2.8) Procalcitonin 0.06 (<0.5) ng/mL SARS-CoV-2 (PCR) Negative (Negative) 07/19/21 07/19/21 Range/Units 09:37 09:37 WBC (4.5-11.0) X10^3/uL RBC (4.0-5.2) X10^6/uL Hgb (12.0-16.0) g/dL Hct (36-46) % MCV (80-100) fL MCH (26-34) PG MCHC (30-36) % RDW (11.6-14.8) % Plt Count (150-400) X10^3/uL Neut % (Auto) (50-75) % Lymph % (Auto) (25-40) % [place] % (Auto) (3-14) % Eos % (Auto) (2-4) % Baso % (Auto) (0-2) % Neut # (Auto) (3051-4911) /uL Lymph # (Auto) (9661-8160) /uL [place] # (Auto) (0-900) /uL Eos # (Auto) (0-450) /uL Baso # (Auto) (0-100) /uL Sodium 136 L (137-145) mmol/L Potassium 3.9 (3.4-5.1) mmol/L Chloride 105 (98-107) mmol/L Carbon Dioxide 28 (22-32) mmol/L BUN 14 (7-17) mg/dL Creatinine 0.45 L (0.52-1.04) mg/dL Estimated GFR > 60 (>60) mL/min BUN/Creatinine Ratio 31.1 H (6-22) Glucose 100 (80-110) mg/dL Lactate 1.2 (0.7-2.1) mmol/L Calcium 9.1 (8.4-10.2) mg/dL Magnesium (1.6-2.3) mg/dL Total Bilirubin 0.2 (0.2-1.3) mg/dL AST 28 (14-36) IU/L ALT 26 (<35) IU/L Alkaline Phosphatase 62 (38-126) U/L Total Creatine Kinase (30-135) U/L CK-MB (CK-2) CK-MB (CK-2) Rel Index Troponin I (0.01-0.034) ng/mL NT-Pro-B Natriuret Pep (<125) pg/mL Total Protein 6.6 (6.3-8.2) g/dL Albumin 3.9 (3.5-5.0) g/dL Globulin 2.7 (1.7-4.1) g/dL Albumin/Globulin Ratio 1.4 (1.0-2.8) Procalcitonin (<0.5) ng/mL SARS-CoV-2 (PCR) (Negative) Imaging Data Chest x-ray: Radiologist's Impression: [address] [address] XRay Report Signed Patient: Leida Key MR#: [id number] : 1950 Acct:[id number] Age/Sex: 71 / F Date of Service: 07/19/21 Loc: ED Accession Number: [id number] ?? Procedure: XR chest 2V Ordering Provider: Kevin Ramirez D.O. PROCEDURE:? XR CHEST 2V ? INDICATIONS:? SOB, fatigue, cough ? TECHNIQUE:? 2 views of the chest were acquired.? ? [facility]. ? FINDINGS:? ? Surgical changes and devices:? There is a Port-A-Cath on the right with the tip projecting to the area of atrial caval junction.? ? Lungs and pleura:? Lungs are hyperinflated consistent with COPD.? Possible small pleural effusions.? No pneumothorax.? No acute pulmonary opacities.? Prominent pulmonary interstitium. ? Mediastinum:? Mediastinal contours are normal.? Heart size is normal.? ? Bones and chest wall:? No suspicious bony abnormalities.? Soft tissues appear unremarkable.? ? IMPRESSION:? ? 1. COPD.? 2. Small pleural effusions bilaterally. 3. Prominent pulmonary interstitium.? No acute infiltrate or consolidation.? ? ? Dictated by: Sahil Gonzalez M.D. on 07/19/2021 at 9:25 ? ? Approved by: Sahil Gonzalez M.D. on 07/19/2021 at 9:27 ? MDM Narrative Medical decision making narrative: Patient with complicated medical history presents with increased shortness of breath and fatigue. Vital signs have been reassuring, chest x-ray shows no pneumonia, labs demonstrate no evidence of anemia, electrolyte abnormality. She feels significant improvement after the use of bronchodilators and steroids. She is given extensive return precautions and questions have been answered to her apparent satisfaction Discharge Plan Departure Patient Disposition: Home Clinical Impression: COPD exacerbation Instructions: DI for Chronic Obstructive Pulmonary Disease Activity Restrictions/Additional Instructions: *You have been diagnosed with [shortness of breath due to acute exacerbation of COPD. As we discussed your history and physical exam are reassuring and there is no evidence of lab abnormalities such as anemia or obvious cardiac problem. Your COVID swab was negative and chest x-ray shows no significant acute findings. *What to do: *Please continue to take your regular medications as directed. [x ] New medication prescriptions sent to your pharmacy: [ [facility]] *Please follow up with your primary care provider in 2-3 days, call for an appointment. Let them know you were seen in the Emergency Department and that we ask that you be seen in follow up. We will electronically transmit a record of today's note if your PCP is in our system *Return to Emergency Department if you should have any new, worsening or concerning symptoms, such as [fever greater than 101 F, shaking chills, worsening pain, persistent vomiting or other bothersome symptoms] Prescriptions: New prednisone 10 mg tablet See Rx Instructions .ROUTE .COMPLEX Qty: 30 0RF Rx Instructions: Day 1,2,3: 40mg PO Daily Day 4,5,6: 30mg PO Daily Day 7,8,9: 20mg PO Daily Day 10,11,12: 10mg PO Daily #30 No Action metoprolol tartrate 25 mg Tablet 50 mg PO DAILY 0RF Label Comments: PT UNSURE OF DOSE albuterol sulfate 2.5 mg /3 mL (0.083 %) Solution For Nebulization 2.5 mg INHALATION QID PRN (Reason: Wheezing) 0RF clopidogrel 75 mg Tablet 75 mg PO DAILY 0RF ondansetron 8 mg Tablet,Disintegrating 8 mg PO Q8H PRN (Reason: Nausea, vomiting) 0RF nitroglycerin [Nitrostat] 0.4 mg Tablet, Sublingual 0.4 mg SUBLINGUAL Q5M PRN (Reason: Chest Pain) 0RF Rx Instructions: do not exceed 3 doses per episode Eliquis 5 mg Tablet 5 mg PO BID 0RF pantoprazole [Protonix] 40 mg Tablet,Delayed Release (Dr/Ec) 40 mg PO DAILY 0RF Advair HFA 230-21 mcg/actuation HFA aerosol inhaler 230 inh INHALATION DAILY 0RF atorvastatin 80 mg tablet 80 mg PO DAILY 0RF fluticasone propion-salmeterol [Advair Diskus] 100-50 mcg/dose blister with device 1 puff INHALATION BID 0RF folic acid 1 mg PO DAILY 0RF calcium and vitamin d 600 mg PO BID 0RF mecobalamin (vitamin B12) 1,000 mcg tablet,disintegrating 1,000 mcg SL DAILY 0RF albuterol sulfate 90 mcg/actuation aerosol powdr breath activated 2 inhalation INHALATION Q6H PRN (Reason: Adequate Ventilation) 0RF Referrals: Elizabeth Cartagena MD [Primary Care Provider] - Irma Vargas MD [Physician] -
[2021-07-19] MEDS: SODIUM CHLORIDE 0.9% 1,000 ML 150 ML IV (09:23)
[2021-07-19] MEDS: methylPREDNISolone 125 MG/2 ML VIAL IV (09:23)
[2021-07-19 09:46] LABS: COVID19 -Nasal RAPID Negative (Negative)
[2021-07-19 09:52] LABS: Add Manual Diff / Slide Review NO; Basophils Absolute Auto 200 /uL (0-100); Basophils Percent Auto 2.9 % (0-2); Eosinophils Absolute Auto 500 /uL (0-450); Eosinophils Percent Auto 9.7 % (2-4); Hematocrit 33.7 % (36-46); Lymphocytes Absolute Auto 700 /uL (1100-4500); Lymphocytes Percent Auto 12.6 % (25-40); Mean Corpuscular HGB Conc 32.6 % (30-36); Mean Corpuscular Hemoglobin 28.1 PG (26-34); Mean Corpuscular Volume 86.4 fL (80-100); Monocytes Absolute Auto 500 /uL (0-900); Monocytes Percent Auto 10.3 % (3-14); Neutrophils Absolute Auto 3400 /uL (1500-7000); Neutrophils Percent Auto 64.5 % (50-75); Platelet Count 353 X10^3/uL (150-400); Red Cell Distribution Width 24.1 % (11.6-14.8); White Blood Cell Count 5.2 X10^3/uL (4.5-11.0)
[2021-07-19 09:57] LABS: Creatine Kinase 31 U/L (30-135); Magnesium 1.7 mg/dL (1.6-2.3)
[2021-07-19 09:58] LABS: Alanine Aminotransferase 26 IU/L (<35); Albumin 3.9 g/dL (3.5-5.0); Albumin Globulin Ratio 1.4 (1.0-2.8); Alkaline Phosphatase 62 U/L (38-126); Aspartate Aminotransferase 28 IU/L (14-36); BUN Creatinine Ratio 31.1 (6-22); Bilirubin Total 0.2 mg/dL (0.2-1.3); Blood Urea Nitrogen 14 mg/dL (7-17); Calcium 9.1 mg/dL (8.4-10.2); Carbon Dioxide 28 mmol/L (22-32); Chloride 105 mmol/L (98-107); Estimated Glomerular Filt Rate > 60 mL/min (>60); Globulin 2.7 g/dL (1.7-4.1); Glucose 100 mg/dL (80-110); HEMOLYSIS < 15 (0-50); Lactate (Lactic Acid) 1.2 mmol/L (0.7-2.1); Potassium 3.9 mmol/L (3.4-5.1); Sodium 136 mmol/L (137-145); Total Protein 6.6 g/dL (6.3-8.2)
[2021-07-19] MEDS: ALBUTEROL/IPRATROPIUM 3 ML AMPUL INH (10:02)
[2021-07-19 10:10] LABS: NT-proBNP (BNP-Adult 18+) 178 pg/mL (<125); Troponin I < 0.012 ng/mL (0.01-0.034)
[2021-07-19 10:14] LABS: Procalcitonin 0.06 ng/mL (<0.5)
[2021-07-19 12:16] LABS: Acanthocytes 1+; Anisocytosis 2+; Microcytosis 1+; Schistocytes 1+
== END 2021-07-19 10:45 | disposition home or self-care (01) ==
PROVIDERS: Emergency Provider Emergency Medicine; Family Provider Neurological Surgery; PCP Family Medicine
DX: J44.1 Chronic obstructive pulmonary disease with (acute) exacerbation (principal); R05.9 Cough, unspecified; R07.9 Chest pain, unspecified; Z20.822 Contact with and (suspected) exposure to COVID-19
CPT/HCPCS: 36415; 71046; 80053; 82550; 83605; 83735; 83880; 84145; 84484; 85025; 87040; 87635; 93005; 96374; 99284; C9803; J2930

== ENCOUNTER → 2021-12-21 10:35 | Outpatient (CLI) | payer MEDICARE, OTHER, SELFPAY ==
--- NOTE | 2021-12-21 | DI.CT.S_ITS ---
PROCEDURE: CT CHEST WO CON INDICATIONS: LEFT LUNG CANCER TECHNIQUE: Noncontrast 5 mm thick sections acquired from the pulmonary apices to the posterior costophrenic angles. 1 mm lung window, 5 mm thick coronal and sagittal and 7 mm axial MIP reformats were then acquired. For radiation dose reduction, the following was used: automated exposure control, adjustment of mA and/or kV according to patient size. COMPARISON: [facility], CT, CT CHEST ABD PEL W CON, 12/03/2020, 9:00. [facility], [place], NM PET CT FUSION SKULL 2 THIGH, 09/09/2021, 10:25. FINDINGS: Image quality: Excellent. Lungs and pleura: A spiculated mass is redemonstrated adjacent to the anterior left mediastinum. This measures 1.2 x 1.6 cm in the axial plane on the current study and measured 1.2 x 1.8 cm on the comparison CT from September 09, 2021. Apical scarring is present, unchanged from prior studies. There is severe centrilobular emphysema. Some paraseptal emphysema is also present. A 1.4 cm ground-glass radiopacity is redemonstrated within the posterior aspect of the left lower lobe. This measured 1.[address] dated December 03, 2020. Of note, there is no FDG activity associated with this lesion on the recent PET-CT. No new pulmonary nodules. No acute airspace opacities. Mediastinum: Heart size is normal. No pericardial effusion. No mediastinal adenopathy by size criteria. Thoracic aorta and central pulmonary arteries are normal in size. Scattered atheromatous calcifications are present within the aortic arch. Esophagus is normal in caliber. No hiatal hernia. Bones and chest wall: There is a right Port-A-Cath, the tip of which is at the cavoatrial junction. No suspicious bony lesions. No vertebral body compression fractures. No axillary or supraclavicular adenopathy by size criteria. Thyroid gland is not well visualized. Abdomen: Visualized upper abdominal solid organs and bowel loops appear normal in the absence of contrast. IMPRESSION: 1. Slight decrease in the size of the spiculated mass within the anterior left lung when compared with the PET-CT dated September 09, 2021. 2. Left lower lobe ground-glass nodule as before without discrete FDG activity appreciated. 3. No findings to suggest new metastasis. Dictated by: Marysol Blandon M.D. on 12/21/2021 at 12:57 Approved by: Marysol Blandon M.D. on 12/21/2021 at 13:02
== END ==
PROVIDERS: Family Provider Neurological Surgery; PCP Family Medicine; Referring Provider Family Medicine; Visit Provider Family Medicine
DX: J43.2 Centrilobular emphysema (principal); C34.92 Malignant neoplasm of unspecified part of left bronchus or lung; R91.1 Solitary pulmonary nodule; M81.0 Age-related osteoporosis without current pathological fracture; Z78.0 Asymptomatic menopausal state; Z90.710 Acquired absence of both cervix and uterus
CPT/HCPCS: 71250; 77080

== ENCOUNTER → 2022-04-28 12:56 | Outpatient (CLI) | payer MEDICARE, OTHER, SELFPAY ==
--- NOTE | 2022-04-28 12:58 | DI.CT.S_ITS ---
PROCEDURE: CT CHEST WO CON INDICATIONS: lung cancer evaluation TECHNIQUE: Noncontrast 2.0-2.5 mm thick sections acquired from the pulmonary apices to the posterior costophrenic angles. 7 mm thick axial MIP and 5 mm coronal and sagittal reformats were then acquired. A low radiation dose technique was utilized. COMPARISON: [facility], [place], HI PET CT FUSION SKULL 2 THIGH, 09/09/2021, 10:25. CT, CT ANGIO CHEST PE PROTOCOL, 11/16/2020, 10:40. CT, CT CHEST ABD PEL W CON, 12/03/2020, 9:00. [facility], CT, CT CHEST WO CON, 12/21/2021, 11:07. FINDINGS: Image quality: Diagnostic, given the low radiation dose technique. Lungs and pleura: There is a 0.9 x 1.2 cm spiculated nodule in the anterior medial aspect of the left upper lobe (series 3 image 105), unchanged in size. In addition, there is a 1.2 x 1.4 cm ground-glass nodule in the left lower lobe (series 3, image 183), also stable. Mediastinum: Heart size is normal. Severe coronary artery calcification. Trace pericardial effusion or mild pericardial thickening. No mediastinal adenopathy by size criteria. Thoracic aorta and central pulmonary arteries are normal in size. Esophagus is normal in caliber. No hiatal hernia. Bones and chest wall: There is a Port-A-Cath in the right anterior chest. No suspicious bony lesions. No vertebral body compression fractures. No axillary or supraclavicular adenopathy by size criteria. Thyroid gland is not well seen. Abdomen: Visualized upper abdomen solid organs and bowel loops appear normal in the absence of contrast. IMPRESSION: 1. Stable spiculated nodule in the anterior medial aspect of the left upper lobe. 2. Stable ground-glass nodule in the left lower lobe. 3. No new lesions. Fleischner Society criteria for SOLID lung nodule followup. Nodule size (mm)Low-risk patientHigh-risk patient<6 (single or multiple)No routine followup.Optional CT at 12 months. 6-8 (single or multiple)CT at 6-12 months, then optional CT at 18-24 mo.CT at 6-12 months, then CT at 18-24 months. >8 (single)CT at 3 months, PET-CT, or biopsy. Same as for low-risk pts. >8 (multiple)CT at 3-6 months, then optional CT at 18-24 mo.CT at 3-6 months, then CT at 18-24 months. Fleischner Society criteria for SUB-SOLID lung nodule followup. Solitary pure ground-glass nodules<6 mm (ground glass or part solid)No followup needed. 6 mm or larger (ground glass)CT at 6-12 months to confirm persistence, then CT every 2 years until 5 years.6 mm or larger (part solid)CT at 3-6 months to confirm persistence, then annual CT until 5 years if unchanged and solid component remains <6 mm. Multiple sub-solid nodules<6 mmCT at 3-6 months, then CT consider at 2 & 4 years for high risk patients. [address] at 3-6 months. Subsequent management based on most suspicious lesions. Recommendations do not apply to lung cancer screening, patients with immunosuppression, or patients with known primary cancer. Dictated by: Sahil Gonzalez M.D. on 04/29/2022 at 12:06 Approved by: Sahil Gonzalez M.D. on 04/29/2022 at 12:17
== END ==
PROVIDERS: Family Provider Neurological Surgery; PCP Family Medicine; Referring Provider Internal Medicine Hematology & Oncology; Visit Provider Internal Medicine Hematology & Oncology
DX: C34.92 Malignant neoplasm of unspecified part of left bronchus or lung (principal); R91.8 Other nonspecific abnormal finding of lung field; I25.10 Atherosclerotic heart disease of native coronary artery without angina pectoris
CPT/HCPCS: 71250

== ENCOUNTER → 2022-05-11 13:24 | Outpatient (CLI) | payer MEDICARE, OTHER, SELFPAY ==
--- NOTE | 2022-05-11 13:25 | DI.MRI.S_ITS ---
PROCEDURE: MR HEAD/BRAIN WO/W CON INDICATIONS: Lung cancer, headache TECHNIQUE: Noncontrast axial T1 spin echo, axial T2 fast spin echo, sagittal and axial FLAIR, coronal T2 fast spin echo, axial gradient echo, axial diffusion and ADC through the brain. After the administration of contrast, axial and coronal and sagittal T1 spin echo with fat saturation through the brain. COMPARISON: None. FINDINGS: Image quality: Excellent. CSF spaces: Basal cisterns are patent. No extra-axial fluid collections. Ventricles are normal in size and shape. Brain: No midline shift. No intracranial bleeds or masses. No abnormal intracranial enhancement. There is cerebral volume loss for age. There is periventricular white matter chronic small vessel ischemic change. The brainstem appears normal. Diffusion-weighted images demonstrate no acute ischemic insults. No chronic ischemic insults. Normal intravascular flow voids are present. Skull and face: Calvarial marrow is normal in signal. Orbits appear normal. Sinuses: Sinuses and mastoids appear clear. Moderate rightward nasal septal deviation is incidentally noted. IMPRESSION: No masses or abnormal enhancement can be seen. Dictated by: Naresh Foote M.D. on 05/11/2022 at 14:15 Approved by: Naresh Foote M.D. on 05/11/2022 at 14:16
== END ==
PROVIDERS: Family Provider Neurological Surgery; PCP Family Medicine; Referring Provider Internal Medicine Hematology & Oncology; Visit Provider Internal Medicine Hematology & Oncology
DX: R51.9 Headache, unspecified (principal); C34.92 Malignant neoplasm of unspecified part of left bronchus or lung
CPT/HCPCS: 70553

== ENCOUNTER → 2022-10-01 13:42 | Outpatient (CLI) | payer MEDICARE, OTHER, SELFPAY ==
--- NOTE | 2022-10-01 13:46 | DI.MRI.S_ITS ---
PROCEDURE: MR LUMBAR SPINE WO CON INDICATIONS: LOW BACK PAIN, SPINAL STENOSIS,LUMBAR RADICUOPATHY TECHNIQUE: Noncontrast sagittal T1 spin echo and T2 fast echo, sagittal STIR, and T2 fast spin echo through the lumbar spine. In cases with scoliosis, additional coronal T2 fast spin echo may be performed. COMPARISON: [facility], CT, CT CHEST ABD PEL W CON, 12/03/2020, 9:00. [facility], MR, MR LUMBAR SPINE WO CON, 11/17/2018, 8:27. [facility], MR, MR LUMBAR SPINE WO CON, 08/02/2020, 14:16. FINDINGS: Image quality: Diagnostic, with note made of motion artifact. Alignment and Curvature: [id number] levoconvex scoliosis is seen. Grade 1 L4-L5 anterolisthesis is seen. Bone Marrow: Marrow is of normal overall signal. No acute vertebral body compression fractures. Spinal Cord: Conus medullaris terminates at the L1 level. Visualized cord demonstrates normal signal and size. Paraspinous Soft Tissues: No paravertebral masses. T12-L1: Normal appearance. L1-L2: The disc height is well-preserved. Loss of disc signal is seen at this level. Mild to moderate disc bulge is seen, which is eccentric to the left. There is mild left-sided and no significant right-sided neural foraminal narrowing. Minimal central canal narrowing is seen. When comparison is made with the prior images, these findings are similar. L2-L3: Mild loss of disc height is seen. Loss of disc signal is seen. Moderate disc bulge is seen, which is slightly eccentric to the left. There is a superimposed central disc protrusion. Moderate facet joint hypertrophy is seen. Moderate bilateral neural foraminal narrowing is seen. Moderate central canal narrowing is seen. These imaging findings have progressed compared to the prior study. L3-L4: Mild loss of disc height is seen. Loss of disc signal is seen. Moderate generalized disc bulge is seen. There is a superimposed central disc protrusion. Moderate facet joint hypertrophy is seen. There is at least moderate right-sided neural foraminal narrowing, with a degree of compression upon the exiting right L3 nerve root. Mild to moderate left-sided neural foraminal narrowing is seen. Moderate central canal narrowing is seen. When comparison is made with the prior images, these findings are similar. L4-L5: Moderate loss of disc height is seen. Loss of disc signal is seen. Moderate disc bulge is seen, which is eccentric to the right. There is a superimposed central disc protrusion. At least moderate facet hypertrophy is seen. Postoperative change is seen, prior right hemilaminectomy. There is moderate to severe right-sided and at least moderate left-sided neural foraminal narrowing. There is a degree of compression seen upon the exiting nerve roots. No significant central canal is seen. The degree of central canal narrowing is improved compared to prior. L5-S1: At least moderate loss of disc height and disc signal can be seen. Moderate disc bulge is seen, which is eccentric to the left. Moderate facet joint hypertrophy is seen. There is at least moderate left-sided neural foraminal narrowing can with a degree of compression upon the exiting left L5 nerve root. Minimal right-sided neural foraminal narrowing is seen. No significant central canal narrowing is seen. IMPRESSION: Postoperative change at L4-L5, with right hemilaminectomy and improvement in the degree of central canal narrowing. Multiple levels of lumbar spine degenerative change can be seen, which are mildly progressed at L2-L3 compared to 2020. Dictated by: Naresh Foote M.D. on 10/01/2022 at 16:46 Approved by: Naresh Foote M.D. on 10/01/2022 at 17:00
== END ==
PROVIDERS: Family Provider Neurological Surgery; PCP Family Medicine; Referring Provider Family Medicine; Visit Provider Family Medicine
DX: M48.062 Spinal stenosis, lumbar region with neurogenic claudication (principal); M47.816 Spondylosis without myelopathy or radiculopathy, lumbar region; M47.817 Spondylosis without myelopathy or radiculopathy, lumbosacral region; M54.50 Low back pain, unspecified; M19.90 Unspecified osteoarthritis, unspecified site
CPT/HCPCS: 72148

== ENCOUNTER → 2023-02-09 09:32 | Outpatient (CLI) | payer MEDICARE, OTHER, SELFPAY ==
--- NOTE | 2023-02-09 | DI.RAD.S_ITS ---
PROCEDURE: XR DEXA AXIAL SKELETON INDICATIONS: OTHER OSTEOPORSIS COMPARISON: [facility], CR, XR DEXA AXIAL SKELETON, 12/21/2021, 10:48. FINDINGS: This blank DEXA report has been sent in error by the PACS system. The correct and complete report will be forthcoming in 1-2 days. Thank you for your patience and understanding. Dictated by: Dima Cotter M.D. on 02/09/2023 at 11:23 Approved by: Dima Cotter M.D. on 02/09/2023 at 11:23
--- NOTE | 2023-02-09 10:08 | DI.DEXA.S_ITS ---
Bone Density Report Name: HIEU FORMAN Age: 72 Sex: Female Ethnicity: White Date of : 1950 Indication: postmenopausal osteoporosis; monitoring treatment; Referring Provider: JUNITO DAVIES Study: Bone densitometry was performed. Exam Date: February 09, 2023 Accession number: [id number] Bone Density: Region BMD T-score Z-score Classification AP Spine(L3, L4) 0.941 -1.5 0.8 Osteopenia Femoral Neck (Left) 0.510 -3.1 -1.2 Osteoporosis Total Hip (Left) 0.588 -2.9 -1.4 Osteoporosis Femoral Neck (Right) 0.496 -3.2 -1.3 Osteoporosis Total Hip (Right) 0.613 -2.7 -1.2 Osteoporosis Total Hip Mean 0.601 -2.8 -1.3 Osteoporosis World Health Organization criteria for BMD impression classify patients as: Normal (T-score at or above -1.0), Osteopenia (T-score between -1.0 and -2.5), or Osteoporosis (T-score at or below -2.5). 10-year Fracture Risk: FRAX not reported because: Some T-score for Spine Total or Hip Total or Femoral Neck at or below -2.5 Treated for osteoporosis Previous Exams: -- Region Exam Age BMD T-score BMD Change BMD Change Date g/cm2 vs Baseline vs Previous -- AP Spine (L3-L4) 02/09/2023 72 0.941 -1.5 -0.081 (-7.9%)# -0.010 (-1.1%)# 04/10/2019 68 0.951 -1.4 -0.071 (-6.9%)* -0.071 (-6.9%)* 08/10/2016 66 1.022 -0.7 Total Hip(Left) 02/09/2023 72 0.588 -2.9 -0.086 (-12.8%)# -0.016 (-2.7%)# 12/21/2021 71 0.604 -2.8 -0.070 (-10.4%)# 0.009 (1.5%)# 04/10/2019 68 0.595 -2.8 -0.079 (-11.7%)* -0.079 (-11.7%)* 08/10/2016 66 0.674 -2.2 Total Hip(Right) 02/09/2023 72 0.613 -2.7 -0.084 (-12.0%)# -0.018 (-2.9%)# 12/21/2021 71 0.632 -2.5 -0.065 (-9.4%)# 0.036 (6.0%)# 04/10/2019 68 0.596 -2.8 -0.101 (-14.5%)* -0.101 (-14.5%)* 08/10/2016 66 0.697 -2.0 -- *Denotes significance at 95% confidence level, LSC for AP Spine = 0.022 g/cm2, LSC for Total Hip = 0.027 g/cm2 Rate of change results reflect vertebral levels common to all scans # Denotes dissimilar scan types or analysis methods Impression: The patient has osteoporosis, based on the Right Femoral Neck T-score. No significant bone loss was observed. Discussion: PATIENT UNDER TREATMENT WITH NO SIGNIFICANT BMD LOSS SINCE LAST EXAM. In an untreated patient, BMD typically declines with age. A lack of decline or gain is usually a sign that treatment is efficacious and fracture risk is reduced. It is important to ask patients whether they are taking their medications and to encourage continued and appropriate compliance with their osteoporosis therapies to reduce fracture risk. It is also important to review their risk factors and encourage appropriate calcium and vitamin D intakes, exercise, fall prevention and other lifestyle measures. Follow-Up: Consider a repeat BMD and Vertebral Fracture Assessment (VFA) exam in 2 years or sooner if medically necessary, to reassess this patient's status. Reported by: IVAN VU M.D. on 02/09/2023 10:26:00 AM.
== END ==
PROVIDERS: Family Provider Neurological Surgery; PCP Family Medicine; Referring Provider Family Medicine; Visit Provider Family Medicine
DX: M81.8 Other osteoporosis without current pathological fracture (principal); Z79.83 Long term (current) use of bisphosphonates; Z90.710 Acquired absence of both cervix and uterus; Z78.0 Asymptomatic menopausal state; Z92.241 Personal history of systemic steroid therapy
CPT/HCPCS: 77080

== ENCOUNTER → 2023-07-11 11:45 | Outpatient (CLI) | payer MEDICARE, OTHER, SELFPAY ==
--- NOTE | 2023-07-11 11:51 | DI.RAD.S_ITS ---
PROCEDURE: XR CHEST 2V INDICATIONS: COUGH TECHNIQUE: 2 views of the chest were acquired. COMPARISON: [facility], CR, XR CHEST 2V, 07/19/2021, 9:22. [facility], CR, XR CHEST 1V, 06/18/2021, 17:54. FINDINGS: Surgical changes and devices: None. Lungs and pleura: Lungs are clear. No pleural effusions or pneumothorax. Mediastinum: Mediastinal contours are normal. Heart size is normal. Bones and chest wall: No suspicious bony abnormalities. Soft tissues appear unremarkable. IMPRESSION: No acute cardiopulmonary abnormality is seen. Dictated by: Zak Peres M.D. on 07/11/2023 at 14:47 Approved by: Zak Peres M.D. on 07/11/2023 at 14:49
[2023-07-11 13:13] LABS: Add Manual Diff / Slide Review NO; Basophils Absolute Auto 100 /uL (0-100); Basophils Percent Auto 0.5 % (0-2); Eosinophils Absolute Auto 100 /uL (0-450); Eosinophils Percent Auto 0.7 % (2-4); Hematocrit 42.6 % (36-46); Hemoglobin 13.9 g/dL (12.0-16.0); Lymphocytes Absolute Auto 1300 /uL (1100-4500); Lymphocytes Percent Auto 9.2 % (25-40); Mean Corpuscular HGB Conc 32.6 % (30-36); Mean Corpuscular Volume 92.1 fL (80-100); Monocytes Absolute Auto 1000 /uL (0-900); Monocytes Percent Auto 7.1 % (3-14); Neutrophils Absolute Auto 11800 /uL (1500-7000); Neutrophils Percent Auto 82.5 % (50-75); Platelet Count 416 X10^3/uL (150-400); Red Blood Cell Count 4.62 X10^6/uL (4.0-5.2); White Blood Cell Count 14.3 X10^3/uL (4.5-11.0)
[2023-07-11 13:32] LABS: Magnesium 1.7 mg/dL (1.6-2.3)
[2023-07-11 14:19] LABS: Alanine Aminotransferase 18 IU/L (<35); Albumin 4.1 g/dL (3.5-5.0); Albumin Globulin Ratio 1.4 (1.0-2.8); Alkaline Phosphatase 80 U/L (38-126); Aspartate Aminotransferase 24 IU/L (14-36); BUN Creatinine Ratio 24.6 (6-22); Bilirubin Total 0.7 mg/dL (0.2-1.3); Blood Urea Nitrogen 14 mg/dL (7-17); Calcium 9.7 mg/dL (8.4-10.2); Carbon Dioxide 28 mmol/L (22-32); Chloride 103 mmol/L (98-107); Estimated Glomerular Filt Rate > 60 mL/min (>60); Glucose 103 mg/dL (80-110); HEMOLYSIS < 15 (0-50); Potassium 3.7 mmol/L (3.4-5.1); Sodium 135 mmol/L (137-145); Total Protein 7.1 g/dL (6.3-8.2)
[2023-07-11 14:54] LABS: Free T3, Triiodothyronine Free 3.45 pg/mL (2.77-5.27); Free T4, Direct Thyroxine 2.46 ng/dL (0.78-2.19)
[2023-07-11 15:08] LABS: Thyroid Stimulating Hormone 0.338 uIU/mL (0.47-4.68)
== END ==
PROVIDERS: Family Provider Neurological Surgery; PCP Family Medicine; Referring Provider Family Medicine; Visit Provider Family Medicine
DX: R05.1 Acute cough (principal); J44.9 Chronic obstructive pulmonary disease, unspecified; C34.92 Malignant neoplasm of unspecified part of left bronchus or lung; E03.9 Hypothyroidism, unspecified; Z13.0 Encounter for screening for diseases of the blood and blood-forming organs and certain disorders involving the immune mechanism; I10 Essential (primary) hypertension; D72.829 Elevated white blood cell count, unspecified; M79.601 Pain in right arm; M94.0 Chondrocostal junction syndrome [Tietze]; R25.2 Cramp and spasm
CPT/HCPCS: 36415; 71046; 80053; 83735; 84439; 84443; 84481; 85025

== ENCOUNTER → 2023-07-11 11:55 | Outpatient (CLI) | payer MEDICARE, OTHER, SELFPAY ==
[2023-07-11 12:45] LABS: Influenza A - CEPHEID Flu A NEGATIVE (NEGATIVE); Influenza B - CEPHEID Flu B NEGATIVE (NEGATIVE); Respiratory Syncytial Virus Negative (Negative)
[2023-07-11 12:48] LABS: COVID-19 CEPHEID 4-PLEX PCR Negative (Negative)
[2023-07-11 15:22] LABS: Adenovirus Not Detected (Not Detect); B. parapertussis Not Detected (Not Detecte); Bordetella pertussis Not Detected (Not Detect); Chlamydophila pneumoniae Not Detected (Not Detect); Coronavirus 229E Not Detected (Not Detect); Coronavirus HKU1 Not Detected (Not Detect); Coronavirus NL 63 Not Detected (Not Detect); Coronavirus OC43 Not Detected (Not Detect); Human Metapneumovirus Not Detected (Not Detect); Human Rhinovirus/Enterovirus Not Detected (Not Detect); Influenza A Not Detected (Not Detect); Influenza B Not Detected (Not Detect); Mycoplasma pneumoniae Not Detected (Not Detect); Parainfluenza Virus 1 Not Detected (Not Detect); Parainfluenza Virus 2 Not Detected (Not Detect); Parainfluenza Virus 3 Not Detected (Not Detect); Parainfluenza Virus 4 Not Detected (Not Detect); Respiratory Syncytial Virus Not Detected (Not Detect); SARS- CoV-2 Not Detected (Not Detecte)
== END ==
PROVIDERS: Family Provider Neurological Surgery; PCP Family Medicine; Visit Provider Family Medicine
DX: C34.92 Malignant neoplasm of unspecified part of left bronchus or lung (principal); R05.1 Acute cough; J44.9 Chronic obstructive pulmonary disease, unspecified; E03.9 Hypothyroidism, unspecified; Z13.0 Encounter for screening for diseases of the blood and blood-forming organs and certain disorders involving the immune mechanism; I10 Essential (primary) hypertension; D72.829 Elevated white blood cell count, unspecified; M94.0 Chondrocostal junction syndrome [Tietze]; M79.601 Pain in right arm; R25.2 Cramp and spasm
CPT/HCPCS: 0241U; 36415; 71046; 80053; 83735; 84439; 84443; 84481; 85025; 87633

== ENCOUNTER 2024-01-21 11:12 | Emergency (ER) | payer MEDICARE, OTHER, SELFPAY ==
[2024-01-21] VITALS (7 sets, daily range): BP systolic 136–202; BP diastolic 85–107; PULSE 84–139; RESP 25–31; TEMP 36.3; O2SAT 93–97; BMI 19.8
--- NOTE | 2024-01-21 11:20 | DI.RAD.S_ITS ---
PROCEDURE: XR CHEST 1V INDICATIONS: Shortness of breath TECHNIQUE: One view of the chest was acquired. COMPARISON: [facility], CR, XR CHEST 2V, 07/11/2023, 11:50. [facility], CR, XR CHEST 2V, 07/19/2021, 9:22. FINDINGS: Surgical changes and devices: None. Lungs and pleura: Lungs are hyperinflated without consolidation. No pleural effusions or pneumothorax. Mediastinum: Mediastinal contours appear normal. Heart size is normal. Bones and chest wall: No suspicious bony lesions. Overlying soft tissues appear unremarkable. IMPRESSION: No acute cardiopulmonary abnormality is seen. Dictated by: Serena López M.D. on 01/21/2024 at 11:15 Approved by: Serena López M.D. on 01/21/2024 at 11:16
--- NOTE | 2024-01-21 11:22 | EKG_ITS ---
[id number] [address] Test Date: 2024-01-21 Pat Name: Leida Key Department: Room: Gender: Female [employer]: PAUL : 1950 Requested By: Order Number: [id number] Reading MD: Fernando Cardona MD Measurements Intervals [place] Rate: 108 P: 91 VA: 124 QRS: 83 QRSD: 80 T: 117 QT: 314 QTc: 420 Interpretive Statements Sinus tachycardia with premature atrial complexes ST & T wave abnormality, consider inferior ischemia Electronically Signed On 01-22-2024 13:40:21 PST by Fernando Cardona MD
[2024-01-21 11:37] LABS: INR 1.3 (0.9-1.3); Prothrombin Time 14.3 SECONDS (9.4-12.5)
--- NOTE | 2024-01-21 11:37 | ED.ARRPALP ---
HPI - Arrhythmia/Palpitations General Chief Complaint: Arrhythmia/Palpitations Stated Complaint: high BP, dizzy, Sob, high heart rate Time Seen by Provider: 01/21/24 11:35 Source: patient, RN notes reviewed and old records reviewed Mode of arrival: Ambulatory Limitations: no limitations History of Present Illness HPI narrative: 73-year-old female, former smoker with a history of adenocarcinoma of the lung status post radiation and chemotherapy, history coronary artery disease with 5 cardiac stents, atrial fibrillation with prior ablation on Eliquis, hypertension, dyslipidemia, hypothyroidism complaint of shortness of breath for the past week. Patient does note she had COVID last 2 weeks, she states ?kicked her butt? and she has been using her nebulizers quite a bit. She states she thinks she has been flipping in and out of atrial fibrillation with heart rates running from 40s to 140s frequently. She notes her blood pressure has been elevated as well in the 150 range. She was noted no persistent fevers. She was has a little bit of mild headache, she has had some nasal congestion. She was felt increasingly short of breath with dyspnea on exertion. Denies any chest pain or pressure. She has had a wet productive cough but she states it is sticking clear no coloration changes no hemoptysis. She states it seems to be her typical COPD cough. She states has been having nausea last week but that is all improved. She has not had any syncope or lightheadedness. Patient states no issues with bowel movements. No issues with urination. She notes had some swelling last week in her feet but that is since improved. She does note she has had no weight gain but actually little bit of weight loss. She notes she had been using a nebulizers frequently which seemed to exacerbate her tachycardia. Patient states she was on Eliquis, metoprolol, Synthroid, statin and uses DuoNebs as well as albuterol regularly. No known drug allergies. Former smoker, occasional alcohol, no recreational drugs. Follows with Dr. Davies, Dr. Cartagena for primary care physician. Related Data Home Medications Medication Instructions Recorded Confirmed atorvastatin 80 mg tablet 80 mg PO DAILY 01/29/19 06/30/22 calcium and vitamin d 600 mg PO BID 01/29/19 06/30/22 fluticasone 100 mcg-salmeterol 50 1 puff inhalation BID 01/29/19 06/30/22 mcg/dose blistr powdr for inhalation (Advair Diskus) folic acid 1 mg PO DAILY 01/29/19 06/30/22 mecobalamin (vitamin B12) 1,000 1,000 mcg sublingual DAILY 01/29/19 06/30/22 mcg disintegrating tablet,sublingual albuterol sulfate 90 mcg/actuation 2 inhalation inhalation Q6H PRN 08/22/19 06/30/22 breath activated powder inhaler Adequate Ventilation metoprolol tartrate 25 mg tablet 50 mg PO DAILY 12/01/20 06/30/22 albuterol sulfate 2.5 mg/3 mL 2.5 mg inhalation QID PRN Wheezing 05/20/21 06/30/22 (0.083 %) solution for nebulization apixaban 5 mg tablet (Eliquis) 5 mg PO BID 05/20/21 06/30/22 nitroglycerin 0.4 mg sublingual 0.4 mg sublingual Q5M PRN Chest 05/20/21 06/30/22 tablet (Nitrostat) Pain ondansetron 8 mg disintegrating 8 mg PO Q8H PRN Nausea, vomiting 05/20/21 06/30/22 tablet pantoprazole 40 mg tablet,delayed 40 mg PO DAILY 05/20/21 06/30/22 release (Protonix) fluticasone propionate 230 230 inh inhalation DAILY 05/21/21 06/30/22 mcg-salmeterol 21 mcg/actuation HFA inhaler (Advair HFA) prednisone 10 mg tablet 10 mg PO DAILY 10/01/21 06/30/22 Previous Rx's Medication Instructions Recorded levothyroxine 125 mcg capsule 125 mcg PO DAILY #30 caps 02/11/22 nystatin 100,000 unit/mL oral 4 ml buccal QID 7 days #112 mL 01/21/24 suspension Allergies Allergy/AdvReac Type Severity Reaction Status Date / Time No Known Drug Allergies Allergy Verified 01/21/24 11:20 Review of Systems Review of Systems ROS Unobtainable: All systems reviewed & are unremarkable except as noted in HPI and below Patient History Medical History Anemia Arthritis Juarez's esophagus Cervical cancer (1981) Stomach ulcer HTN (hypertension) HLD (hyperlipidemia) Adenocarcinoma of left lung CAD (coronary artery disease) COPD (chronic obstructive pulmonary disease) Peripheral artery disease Herniated nucleus pulposus, L5-S1 Facet arthropathy, lumbar Afib Lumbosacral spondylosis with radiculopathy Surgical History History of surgical procedure (02/2021) History of cardiac radiofrequency ablation Hx of laminectomy (2020) Hx of laminectomy (2001) Hx of heart artery stent (01/29/21) S/P appendectomy H/O: hysterectomy Family History Father Cancer Mother Eosinophilic pneumonia Social History marital status: number of children: 2 household members: spouse lives independently: Yes Smoking Status: Former smoker alcohol intake: never substance use type: does not use Smoking Status: Former smoker alcohol intake frequency: holidays/special occasions only Substance Use Type: does not use Exam Narrative Exam Narrative: GENERAL: Alert and oriented x three, thin elderly the female in mild distress, HEENT: Head normocephalic, atraumatic, EOMI, pupils reactive, face symmetric, moist mucous membranes, patient does have some small white patches on her tongue and oropharynx consistent with thrush. NECK: Supple, full range of motion CARDIOVASCULAR: Slightly tachycardic and irregular proximally 90-100 beats per minute, no murmurs, rubs or gallops appreciated, no JVD. No edema bilateral lower extremities. RESPIRATORY: Breath sounds equal bilaterally, no wheezes rales or rhonchi. Mild tachypnea. Patient does have little bit of mild pursed lip breathing. Is able to speak in full sentences. ABDOMEN: Soft, nontender. Normoactive bowel sounds all 4 quadrants. No guarding or rebound, rigidity, no mass : No CVA tenderness EXTREMITIES: Normal range of motion, no clubbing or edema. Neurovascularly intact NEUROLOGICAL: Cranial nerves II through XII grossly intact. Moving all extremities SKIN: Warm, dry, no petechiae, no rashes or lesions. Initial Vital Signs Initial Vital Signs: Vital Signs Temperature 97.4 F L 01/21/24 11:13 Pulse Rate 120 H 01/21/24 11:13 Respiratory Rate 27 H 01/21/24 11:13 Blood Pressure 202/103 H 01/21/24 11:13 Pulse Oximetry 96 01/21/24 11:13 Oxygen Delivery Method Room Air 01/21/24 11:13 Course Orders Ordered: ED Orders 01/21/24 11:18 Complete Blood Count AUTO DIFF Stat Comprehensive Metabolic Panel Stat Free T4, Direct Thyroxine Stat Lactate (Lactic Acid) Stat NT-proBNP (BNP-Adult 18+) Stat Procalcitonin Stat Prothrombin Time INR Stat TSH w/ Reflex to FT4 Stat Troponin I Stat 01/21/24 11:20 XR chest 1V Stat EKG-12 Lead Stat Measure peak expiratory flow ONCE RT Consult Eval and Treat NOW Discontinued Medications Metoprolol Tartrate (Metoprolol Ir 25 Mg Tablet) 25 mg PO NOW ONE Stop: 01/21/24 12:03 Last Admin: 01/21/24 12:09 Dose: 25 mg Documented By: CTS Vital Signs Vital signs: Vital Signs - 8 hr 01/21/24 11:13 01/21/24 11:18 01/21/24 11:18 Temperature 97.4 F L Pulse Rate 120 H 139 H Respiratory Rate 27 H Blood Pressure 202/103 H 202/103 H Pulse Oximetry 96 97 Oxygen Delivery Method Room Air 01/21/24 11:30 01/21/24 11:30 01/21/24 12:00 Temperature Pulse Rate 106 H Respiratory Rate 27 H Blood Pressure 150/94 H 136/85 Pulse Oximetry 97 Oxygen Delivery Method 01/21/24 12:00 01/21/24 12:30 01/21/24 12:30 Temperature Pulse Rate 114 H 103 H Respiratory Rate 30 H 26 H Blood Pressure 154/88 H Pulse Oximetry 95 96 Oxygen Delivery Method 01/21/24 13:00 01/21/24 13:00 01/21/24 13:30 Temperature Pulse Rate 84 Respiratory Rate 25 H Blood Pressure 158/87 H 181/107 H Pulse Oximetry 93 Oxygen Delivery Method 01/21/24 13:30 Temperature Pulse Rate 120 H Respiratory Rate 31 H Blood Pressure Pulse Oximetry 95 Oxygen Delivery Method MDM - Arrhythmia/Palpitations Lab Data 01/21/24 11:18 01/21/24 11:18 Labs: Lab Results 01/21/24 Range/Units 11:18 WBC 19.0 H (4.5-11.0) X10^3/uL RBC 4.99 (4.0-5.2) X10^6/uL Hgb 15.2 (12.0-16.0) g/dL Hct 45.5 (36-46) % MCV 91.3 (80-100) fL MCH 30.6 (26-34) PG MCHC 33.5 (30-36) % RDW 15.0 H (11.6-14.8) % Plt Count 506 H (150-400) X10^3/uL Neut % (Auto) Not Reportable Lymph % (Auto) Not Reportable Burke % (Auto) Not Reportable Eos % (Auto) Not Reportable Baso % (Auto) Not Reportable Lymph # (Auto) Not Reportable Burke # (Auto) Not Reportable Baso # (Auto) Not Reportable Total Counted 100 Seg Neutrophils % 86.0 H (38-70) % Lymphocytes % (Manual) 9.0 L (25-45) % Atypical Lymphs % 1.0 H ( - 0) % Monocytes % (Manual) 3.0 (2-11) % Myelocytes % 1.0 H (-0) % Neutrophils # (Manual) 06181 H (3369-6834) /uL Smudge Cells 1+ H RBC Morphology See below Anisocytosis 2+ H Ovalocytes 1+ H PT 14.3 H (9.4-12.5) SECONDS INR 1.3 (0.9-1.3) Sodium 136 L (137-145) mmol/L Potassium 3.8 (3.4-5.1) mmol/L Chloride 103 (98-107) mmol/L Carbon Dioxide 27 (22-32) mmol/L BUN 18 H (7-17) mg/dL Creatinine 0.83 (0.52-1.04) mg/dL Estimated GFR > 60 (>60) mL/min BUN/Creatinine Ratio 21.7 (6-22) Glucose 166 H (80-110) mg/dL Lactate 1.7 (0.7-2.1) mmol/L Calcium 9.1 (8.4-10.2) mg/dL Total Bilirubin 0.6 (0.2-1.3) mg/dL AST 18 (14-36) IU/L ALT 22 (<35) IU/L Alkaline Phosphatase 65 (38-126) U/L Troponin I < 0.012 (0.01-0.034) ng/mL NT-Pro-B Natriuret Pep 249 H (<125) pg/mL Total Protein 6.7 (6.3-8.2) g/dL Albumin 3.9 (3.5-5.0) g/dL Globulin 2.8 (1.7-4.1) g/dL Albumin/Globulin Ratio 1.4 (1.0-2.8) Procalcitonin 0.055 (<0.5) ng/mL TSH 5.34 H (0.47-4.68) uIU/mL Free T4 1.54 (0.78-2.19) ng/dL Imaging Data Chest x-ray: Radiologist's Impresson: [address] [address] XRay Report Signed Patient: Leida Key MR#: [id number] : 1950 Acct:[id number] Age/Sex: 73 / F Date of Service: 01/21/24 Loc: ED Accession Number: [id number] Procedure: XR chest 1V Ordering Provider: Connie Salinas D.O. PROCEDURE: XR CHEST 1V INDICATIONS: Shortness of breath TECHNIQUE: One view of the chest was acquired. COMPARISON: [facility], CR, XR CHEST 2V, 07/11/2023, 11:50. [facility], CR, XR CHEST 2V, 07/19/2021, 9:22. FINDINGS: Surgical changes and devices: None. Lungs and pleura: Lungs are hyperinflated without consolidation. No pleural effusions or pneumothorax. Mediastinum: Mediastinal contours appear normal. Heart size is normal. Bones and chest wall: No suspicious bony lesions. Overlying soft tissues appear unremarkable. IMPRESSION: No acute cardiopulmonary abnormality is seen. Dictated by: Serena López M.D. on 01/21/2024 at 11:15 Approved by: Serena López M.D. on 01/21/2024 at 11:16 ECG Data Attestation: I personally reviewed and interpreted this ECG as follows: Prior ECG tracings: available for review Interpretation: Possible atrial fibrillation versus sinus tach with a premature atrial complexes does not appear to be P waves but there has quite a bit of artifact making a bit difficult to evaluate P waves. Ventricular rate is 108, NV 124 QRS is 80 QTC is 420. Patient does have prior from baby 24 which is normal sinus rhythm and has multiple EKGs in the past that were sinus tachycardia. MDM Narrative Medical decision making narrative: 73-year-old female history of atrial fibrillation patient is irregular but has P waves although irregular suspect she maybe having some atrial ectopy. Patient states she does not think she was actually in AFib at this time but felt she has been flipping back and forth. Did have a recent COVID infection patient notes that that really decreased her tolerance and increased her shortness of breath. She states her COVID infection has significantly improved but she continues to have dyspnea with exertion. She notes a thick clear productive cough but states that has not atypical for her. No recent fevers. She does not appear to be clinically fluid overloaded on initial exam. Labs show white count of 19 hemoglobin of 15 with platelets of 506. Patient does note she has just been on prednisone burst 40 mg for 5 days and back to her normal 10 mg daily. INR is normal, sodium is 136 potassium 3.8 chloride 103 with a CO2 of 27 BUN 18 and a creatinine of 0.83 glucose is 166 lactate 1.7 calcium is 9.1 50s are normal troponins less than 0.012 with a BNP of 249. Procalcitonin is 0.055. HR is in the 80s consistently. EKG shows sinus tach with premature atrial complexes Chest x-ray shows no acute process TSH elevated at 5.34 but reflex free T4 is appropriate at 1.54. Patient was given a dose of oral metoprolol as her heart rates ranging between 90 and 110 with an occasional mom to 130 on telemetry. She states heart rates typically about 100. She did have her normal home metoprolol dose today. Patient clinically and by labs does not appear to be in heart failure, she does have some irregularity but appears to have P waves present on her telemetry not be atrial fibrillation or atrial ectopy. Patient had dose of oral metoprolol heart rates been trending down words during her stay. On rechecked she states she feels much improved currently she feels that her heart rate is improving and desires discharge home. Reviewed her findings from today she currently takes 50 mg are 225 mg tablets in the morning daily. She states she has had to her have her dosages adjusted in the past particularly when her thyroid was out of whack. We will send a TSH with a reflex but patient would prefer to return home before this is resulted. At this time we will have her continue with 50 mg of metoprolol in the morning and take 25 mg in the evening and follow up with primary care or cardiology. Patient able to ambulate to the bathroom without issue. HR typically 90s with occasional bouts of 110's prior to discharge. Patient notes she was also maybe has a little bit of thrush which she gets intermittently when she uses her nebulizers and inhalers a lot. She does have some changes with the inner mouth and prescription for nystatin oral was sent to the [facility] pharmacy. Discharge Plan Departure Patient Disposition: Home Clinical Impression: Atrial tachycardia Instructions: DI for Arrhythmias Activity Restrictions/Additional Instructions: Follow up with your Dr. Cartagena or your cardiology team for recheck. You do have a TSH with a reflex T4 ordered and currently pending. I would recommend continuing 50 mg of metoprolol in the morning, please take an additional 25 mg of metoprolol in the evening and follow up with your physician for recheck. Continue your other home medications as prescribed. Prescription for nystatin was sent to the [facility] pharmacy. Please return for fevers, chest pain, new or worsening shortness of breath, persistently fast or irregular heart rate, lightheadedness or, increasing swelling of extremities, any persistent vomiting or other new or concerning changes. Prescriptions: New nystatin 100,000 unit/mL suspension 4 ml buccal QID 7 Days Qty: 112 0RF Rx Instructions: administer 1/2 of dose in each side of the mouth No Action metoprolol tartrate 25 mg Tablet 50 mg PO DAILY Patient Comments: PT UNSURE OF DOSE prednisone 10 mg Tablet 10 mg PO DAILY levothyroxine 125 mcg Capsule 125 mcg PO DAILY Qty: 30 5RF albuterol sulfate 2.5 mg /3 mL (0.083 %) Solution For Nebulization 2.5 mg INHALATION QID PRN (Reason: Wheezing) ondansetron 8 mg Tablet,Disintegrating 8 mg PO Q8H PRN (Reason: Nausea, vomiting) nitroglycerin [Nitrostat] 0.4 mg Tablet, Sublingual 0.4 mg SUBLINGUAL Q5M PRN (Reason: Chest Pain) Rx Instructions: do not exceed 3 doses per episode Eliquis 5 mg Tablet 5 mg PO BID pantoprazole [Protonix] 40 mg Tablet,Delayed Release (Dr/Ec) 40 mg PO DAILY Advair HFA 230-21 mcg/actuation HFA aerosol inhaler 230 inh INHALATION DAILY atorvastatin 80 mg tablet 80 mg PO DAILY fluticasone propion-salmeterol [Advair Diskus] 100-50 mcg/dose blister with device 1 puff INHALATION BID folic acid 1 mg PO DAILY calcium and vitamin d 600 mg PO BID mecobalamin (vitamin B12) 1,000 mcg tablet,disintegrating 1,000 mcg SL DAILY albuterol sulfate 90 mcg/actuation aerosol powdr breath activated 2 inhalation INHALATION Q6H PRN (Reason: Adequate Ventilation) Referrals: Miguel Amaro MD [Physician] - Elizabeth Cartagena MD [Primary Care Provider] - Stand Alone Forms: Patient Portal/API/Survey
[2024-01-21 11:38] LABS: Hematocrit 45.5 % (36-46); Hemoglobin 15.2 g/dL (12.0-16.0); Mean Corpuscular HGB Conc 33.5 % (30-36); Mean Corpuscular Hemoglobin 30.6 PG (26-34); Mean Corpuscular Volume 91.3 fL (80-100); Platelet Count 506 X10^3/uL (150-400); Red Blood Cell Count 4.99 X10^6/uL (4.0-5.2)
[2024-01-21 11:41] LABS: Lactate (Lactic Acid) 1.7 mmol/L (0.7-2.1)
[2024-01-21 11:42] LABS: Alanine Aminotransferase 22 IU/L (<35); Albumin 3.9 g/dL (3.5-5.0); Albumin Globulin Ratio 1.4 (1.0-2.8); Alkaline Phosphatase 65 U/L (38-126); Aspartate Aminotransferase 18 IU/L (14-36); BUN Creatinine Ratio 21.7 (6-22); Bilirubin Total 0.6 mg/dL (0.2-1.3); Blood Urea Nitrogen 18 mg/dL (7-17); Calcium 9.1 mg/dL (8.4-10.2); Carbon Dioxide 27 mmol/L (22-32); Chloride 103 mmol/L (98-107); Estimated Glomerular Filt Rate > 60 mL/min (>60); Globulin 2.8 g/dL (1.7-4.1); Glucose 166 mg/dL (80-110); HEMOLYSIS < 15 (0-50); Potassium 3.8 mmol/L (3.4-5.1); Sodium 136 mmol/L (137-145); Total Protein 6.7 g/dL (6.3-8.2)
[2024-01-21 11:54] LABS: NT-proBNP (BNP-Adult 18+) 249 pg/mL (<125); Troponin I < 0.012 ng/mL (0.01-0.034)
[2024-01-21 12:03] LABS: Add Manual Diff / Slide Review YES
[2024-01-21] MEDS: METOPROLOL IR 25 MG TABLET PO (12:09)
[2024-01-21 12:16] LABS: Anisocytosis 2+; Neutrophils Absolute Manual 16340 /uL (3000-5900); Total Cells Counted 100
[2024-01-21 12:17] LABS: Ovalocytes 1+; Smudge Cells 1+
[2024-01-21 13:20] LABS: Procalcitonin 0.055 ng/mL (<0.5)
--- NOTE | 2024-01-21 13:25 | PC.NURSE ---
Pt seen and treated by mansoor prior to this RN assuming care.
[2024-01-21 14:20] LABS: TSH w/ Reflex to FT4 5.34 uIU/mL (0.47-4.68)
[2024-01-21 14:48] LABS: Free T4, Direct Thyroxine 1.54 ng/dL (0.78-2.19)
== END 2024-01-21 13:42 | disposition home or self-care (01) ==
PROVIDERS: Emergency Provider Emergency Medicine; Family Provider Neurological Surgery; PCP Family Medicine
DX: I47.19 Other supraventricular tachycardia (principal); Z79.01 Long term (current) use of anticoagulants; R06.02 Shortness of breath; I10 Essential (primary) hypertension
CPT/HCPCS: 36415; 71045; 80053; 83605; 83880; 84145; 84439; 84443; 84484; 85007; 85025; 85610; 93005; 93010; 99284

== ENCOUNTER → 2024-12-18 10:09 | Outpatient (CLI) | payer MEDICARE, OTHER, SELFPAY ==
--- NOTE | 2024-12-18 10:12 | DI.RAD.S_ITS ---
PROCEDURE: XR RIBS RT MIN 3V W CXR 1V INDICATIONS: Other chest pain TECHNIQUE: 2 views of the ribs were acquired, along with a single view chest. COMPARISON: None. FINDINGS: Heart, mediastinum and pulmonary vascular: Heart is normal in size and configuration. Mediastinum is unremarkable. Pulmonary vascular is normal. Lungs: The lung volumes are mildly elevated and there is mild wall thickening of the central bronchi suggesting bronchitis or asthma. Minor scattered airspace disease in the lower lung mina is likely atelectasis and/or fibrosis. Pleural spaces: Normal-no effusions or pneumothorax. Bones and soft tissues: Normal. No right rib fracture identified IMPRESSION: No right rib fracture or other posttraumatic change. Chronic bronchitis or asthma Dictated by: Fernando Parr M.D. on 12/19/2024 at 10:14 Approved by: Fernando Parr M.D. on 12/19/2024 at 10:15
== END ==
PROVIDERS: Family Provider Neurological Surgery; PCP Family Medicine; Referring Provider Family Medicine; Visit Provider Family Medicine
DX: R07.89 Other chest pain (principal)
CPT/HCPCS: 71101

== ENCOUNTER → 2024-12-31 11:38 | Outpatient (CLI) | payer MEDICARE, OTHER, SELFPAY ==
--- NOTE | 2024-12-31 11:39 | DI.MRI.S_ITS ---
PROCEDURE: MR HEAD/BRAIN WO/W CON INDICATIONS: Secondary malignant neoplasm of brain TECHNIQUE: Noncontrast axial T1 spin echo, axial T2 fast spin echo, sagittal and axial FLAIR, coronal T2 fast spin echo, axial gradient echo, axial diffusion and ADC through the brain. After the administration of contrast, axial and coronal and sagittal T1 spin echo with fat saturation through the brain. COMPARISON: [facility], MR, MR HEAD/BRAIN WO/W CON, 10/24/2024, 11:17. FINDINGS: Image quality: Excellent. CSF spaces: Basal cisterns are patent. No extra-axial fluid collections. Ventricles are normal in size and shape. Brain: No midline shift. Similar appearance of rim enhancing lesion within the right middle cerebellar peduncle measuring 8 mm with surrounding edema. No new enhancing lesions are identified. There is cerebral volume loss for age. There is periventricular white matter chronic small vessel ischemic change. The brainstem appears normal. Diffusion-weighted images demonstrate no acute infarct. No chronic ischemic insults. Normal intravascular flow voids are present. Skull and face: Calvarial marrow is normal in signal. Orbits appear normal. Sinuses: Sinuses and mastoids appear clear. IMPRESSION: Similar appearance of rim enhancing lesion within the right middle cerebellar peduncle, consistent with metastatic disease. No new enhancing lesions are identified. Dictated by: Zak Peres M.D. on 12/31/2024 at 13:29 Approved by: Zak Peres M.D. on 12/31/2024 at 13:35
== END ==
LOC: MRI 11:39
PROVIDERS: Family Provider Neurological Surgery; PCP Family Medicine; Referring Provider Radiology Radiation Oncology; Visit Provider Radiology Radiation Oncology
DX: C79.31 Secondary malignant neoplasm of brain (principal)
CPT/HCPCS: 70553; A9579

== ENCOUNTER → 2025-02-14 09:37 | Outpatient (CLI) | payer MEDICARE, OTHER, SELFPAY ==
--- NOTE | 2025-02-14 09:40 | DI.CT.S_ITS ---
PROCEDURE: CT CHEST ABD PEL W CON INDICATIONS: hx of NSCLC. New brain met and new lung nodule TECHNIQUE: After the administration of intravenous contrast, 5 mm thick sections acquired from the lung apices to the symphysis. 5 mm coronal and sagittal reformats were performed, with additional 7 mm MIP reformats through the lungs. For radiation dose reduction, the following was used: automated exposure control, adjustment of mA and/or kV according to patient size. COMPARISON: [facility], CT, CT CHEST ABD PEL W CON, 09/12/2024, 13:34. FINDINGS: Quality: Diagnostic. Lungs: Parenchyma: Severe centrilobular emphysematous changes. Scarring in the bilateral upper lobes and left lower lobe, unchanged. Ground-glass and cystic lesion in the left lower lobe at the posterior pleura unchanged. Multiple pulmonary micro nodules which are unchanged including previously described 5 mm left lower lobe nodule. Spiculated left lower lobe nodule measuring at 6 mm increased in size from comparison examination where it measured 4 mm (series 5, image 205). Airways: Patent. Pleura: No pneumothorax. No pleural effusion. Mediastinum: Thyroid: Unremarkable. Esophagus: Unremarkable. Heart: Normal size. Severe coronary calcification. Abdomen: Liver: Unremarkable. Gallbladder and bile ducts: Unremarkable. Pancreas: Unremarkable. Spleen: Unremarkable. Adrenal Glands: Unremarkable. Kidneys and Ureters: Unremarkable. Stomach: Unremarkable. Bowel: No abnormal dilation. No wall thickening. Appendix not identified. Moderate fecal retention. Peritoneum: No free fluid. No free air. Pelvis: Reproductive organs: Unremarkable. Bladder: Unremarkable. Other: Lymph nodes: No adenopathy. Vessels: No aortic aneurysm. Severe calcified and noncalcified atherosclerotic plaque. Surgical clips left inguinal region. Soft tissues: Unremarkable. Bones: No aggressive osseous lesion. Bilateral healing rib fractures. Severe degenerative changes in the lower lumbar spine. IMPRESSION: Increased size of left lower lobe spiculated pulmonary nodule. Previously noted new nodule in the left lower lobe is unchanged. Other additional micro nodules are unchanged. No evidence of malignancy below the diaphragm. Dictated by: Samuel Pulido M.D. on 02/14/2025 at 15:28 Approved by: Samuel Pulido M.D. on 02/14/2025 at 15:46
[2025-02-14 10:11] LABS: Estimated Glomerular Filt Rate > 60 mL/min (>60)
== END ==
PROVIDERS: Family Provider Neurological Surgery; PCP Family Medicine; Referring Provider Family Medicine; Visit Provider Student in an Organized Health Care Education/Training Program
DX: C34.12 Malignant neoplasm of upper lobe, left bronchus or lung (principal); R91.8 Other nonspecific abnormal finding of lung field
CPT/HCPCS: 36415; 71260; 74177; 82565; Q9967